=== PATIENT | female | born 1945 | race Caucasian/White ===

== ENCOUNTER 2019-10-29 08:52 | Outpatient (RCR) | payer MEDICARE, SELFPAY ==
[2019-09-03 15:25] LABS: INR 3.6
[2019-09-29 14:50] LABS: INR 3.6; Prothrombin Time 35.5 Seconds (11.1-14.7)
[2019-10-13 17:18] LABS: INR 3.6; Prothrombin Time 35.6 Seconds (11.1-14.7)
[2019-10-29 09:26] LABS: INR 3.1; Prothrombin Time 31.1 Seconds (11.1-14.7)
== END 2019-12-02 23:59 | disposition home or self-care (01) ==
LOC: ANHLAB 08:52
PROVIDERS: PCP Family Medicine; Visit Provider Specialist
DX: I48.91 Unspecified atrial fibrillation (principal); Z79.01 Long term (current) use of anticoagulants
CPT/HCPCS: 36415; 85610

== ENCOUNTER 2020-03-06 09:09 | Outpatient (CLI) | payer MEDICARE, SELFPAY ==
[2020-03-06 09:49] LABS: Hemoglobin A1C 7.5 % (<5.7)
[2020-03-06 10:55] LABS: Alanine Aminotransferase 17 U/L (4-35); Blood Urea Nitrogen 24 mg/dL (7-17); Calcium 9.2 mg/dL (8.4-10.2); Carbon Dioxide 27 mmol/L (22-30); Chloride 105 mmol/L (98-107); Cholesterol 141 mg/dL (0-200); Estimated Glomerular Filt Rate 48; Glucose 161 mg/dL (65-105); LDL Cholesterol Direct 56 mg/dL; Potassium 4.7 mmol/L (3.4-5.0); Sodium 139 mmol/L (137-145); Triglycerides 149 mg/dL (<150)
== END 2020-03-06 09:10 | disposition home or self-care (01) ==
PROVIDERS: PCP Family Medicine; Visit Provider Family Medicine
DX: E11.22 Type 2 diabetes mellitus with diabetic chronic kidney disease (principal); E78.1 Pure hyperglyceridemia
CPT/HCPCS: 36415; 80048; 82465; 83036; 83721; 84460; 84478; 85610

== ENCOUNTER 2020-03-16 13:27 | Outpatient (CLI) | payer MEDICARE, SELFPAY ==
[2020-03-18 09:54] LABS: Reference Lab Test Result Negative
== END 2020-03-16 13:28 | disposition home or self-care (01) ==
PROVIDERS: PCP Family Medicine; Visit Provider Family Medicine
DX: Z20.828 Contact with and (suspected) exposure to other viral communicable diseases (principal)
CPT/HCPCS: 36415; 86769

== ENCOUNTER 2020-04-28 11:38 | Outpatient (RCR) | payer MEDICARE, SELFPAY ==
[2020-02-02 12:55] LABS: INR 2.3; Prothrombin Time 25.1 Seconds (11.1-14.7)
[2020-02-12 14:54] LABS: INR 2.7; Prothrombin Time 28.4 Seconds (11.1-14.7)
[2020-03-06 10:04] LABS: INR 2.9; Prothrombin Time 29.6 Seconds (11.1-14.7)
[2020-03-31 14:23] LABS: INR 2.8; Prothrombin Time 29.3 Seconds (11.1-14.7)
[2020-04-28 12:13] LABS: Prothrombin Time 38.6 Seconds (11.1-14.7)
== END 2020-05-02 23:59 | disposition home or self-care (01) ==
LOC: ANHLAB 11:38
PROVIDERS: PCP Family Medicine; Visit Provider Specialist
DX: I48.91 Unspecified atrial fibrillation (principal); Z79.01 Long term (current) use of anticoagulants
CPT/HCPCS: 36415; 85610

== ENCOUNTER 2020-07-10 09:00 | Outpatient (CLI) | payer MEDICARE, SELFPAY ==
[2020-07-10 09:51] LABS: Alanine Aminotransferase 22 U/L (4-35); Anion Gap 7 mmol/L (8-16); Blood Urea Nitrogen 27 mg/dL (7-17); Calcium 9.7 mg/dL (8.4-10.2); Carbon Dioxide 29 mmol/L (22-30); Chloride 101 mmol/L (98-107); Cholesterol 149 mg/dL (0-200); Estimated Glomerular Filt Rate 44; Glucose 144 mg/dL (65-105); HDL Direct 46 mg/dL; Potassium 4.5 mmol/L (3.4-5.0); Sodium 137 mmol/L (137-145); Triglycerides 196 mg/dL (<150)
[2020-07-10 10:02] LABS: LDL Cholesterol Direct 59 mg/dL
== END 2020-07-10 09:01 | disposition home or self-care (01) ==
PROVIDERS: PCP Family Medicine; Visit Provider Family Medicine
DX: E11.65 Type 2 diabetes mellitus with hyperglycemia (principal); E78.1 Pure hyperglyceridemia
CPT/HCPCS: 36415; 80048; 80061; 83036; 84460

== ENCOUNTER 2020-07-29 15:42 | Outpatient (RCR) | payer MEDICARE, SELFPAY ==
[2020-05-06 17:19] LABS: INR 3.7
[2020-05-15 11:10] LABS: INR 3.6; Prothrombin Time 35.1 Seconds (11.1-14.7)
[2020-05-27 16:39] LABS: INR 3.2
[2020-06-23 18:25] LABS: INR 3.5; Prothrombin Time 34.2 Seconds (11.1-14.7)
[2020-07-19 17:42] LABS: INR 4.6; Prothrombin Time 42.7 Seconds (11.1-14.7)
[2020-07-29 16:38] LABS: Prothrombin Time 30.2 Seconds (11.1-14.7)
== END 2020-08-04 23:59 | disposition home or self-care (01) ==
LOC: ANHLAB 15:42
PROVIDERS: Visit Provider Specialist
DX: I48.20 Chronic atrial fibrillation, unspecified (principal); Z95.2 Presence of prosthetic heart valve
CPT/HCPCS: 36415; 85610

== ENCOUNTER 2020-10-12 14:51 | Outpatient (CLI) | payer MEDICARE, SELFPAY ==
[2020-10-12 15:24] LABS: Hematocrit 36.8 % (37.0-47.0); Hemoglobin 11.9 g/dL (12.0-15.0); Mean Corpuscular HGB Conc 32.3 g/dl (32-36); Mean Corpuscular Hemoglobin 29.1 pg (26-34); Mean Platelet Volume 9.7 fl (7.4-10.4); Platelet Count Result 230 k/mm3 (150-375); Red Blood Count 4.09 M/mm3 (4.2-5.4); Red Cell Distribution Width 14.6 % (11.5-14.5); White Blood Count 8.2 K/mm3 (4.5-10.0)
[2020-10-12 15:34] LABS: Uric Acid 8.2 mg/dL (2.5-7.5)
[2020-10-12 15:52] LABS: Erythrocyte Sedimentation Rate 22 mm/hr (0-20)
== END 2020-10-12 14:52 | disposition home or self-care (01) ==
PROVIDERS: PCP Family Medicine; Visit Provider Family Medicine
DX: M79.675 Pain in left toe(s) (principal)
CPT/HCPCS: 36415; 84550; 85027; 85652

== ENCOUNTER 2020-11-01 12:06 | Outpatient (RCR) | payer MEDICARE, SELFPAY ==
[2020-08-23 12:45] LABS: INR 2.9; Prothrombin Time 30.7 Seconds (11.1-14.7)
[2020-09-15 11:46] LABS: INR 3.5; Prothrombin Time 35.7 Seconds (11.1-14.7)
[2020-09-22 17:45] LABS: INR 3.5; Prothrombin Time 35.3 Seconds (11.1-14.7)
[2020-10-06 12:37] LABS: INR 3.1; Prothrombin Time 32.7 Seconds (11.1-14.7)
[2020-11-01 12:44] LABS: Prothrombin Time 31.4 Seconds (11.1-14.7)
== END 2020-11-21 23:59 | disposition home or self-care (01) ==
LOC: ANHLAB 12:06
PROVIDERS: PCP Family Medicine; Visit Provider Specialist
DX: I48.20 Chronic atrial fibrillation, unspecified (principal); Z95.2 Presence of prosthetic heart valve
CPT/HCPCS: 36415; 85610

== ENCOUNTER 2021-01-20 08:36 | Outpatient (CLI) | payer MEDICARE, SELFPAY ==
[2021-01-20 09:22] LABS: Hemoglobin A1C 6.9 % (<5.7)
[2021-01-20 09:37] LABS: Alanine Aminotransferase 19 U/L (4-35); Albumin Level 4.1 g/dL (3.5-5.1); Alkaline Phosphatase 104 U/L (38-126); Anion Gap 5 mmol/L (8-16); Aspartate Amino Transferase 29 U/L (14-36); Bilirubin,Total 0.8 mg/dL (0.2-1.3); Blood Urea Nitrogen 25 mg/dL (7-17); Calcium 9.1 mg/dL (8.4-10.2); Carbon Dioxide 29 mmol/L (22-30); Chloride 105 mmol/L (98-107); Cholesterol 128 mg/dL (0-200); Estimated Glomerular Filt Rate 48; Glucose 163 mg/dL (65-105); HDL Direct 36 mg/dL; Potassium 4.8 mmol/L (3.4-5.0); Sodium 139 mmol/L (137-145); Triglycerides 187 mg/dL (<150)
[2021-01-20 09:48] LABS: LDL Cholesterol Direct 49 mg/dL
== END 2021-01-20 08:37 | disposition home or self-care (01) ==
LOC: ANHLAB 08:40
PROVIDERS: PCP Family Medicine; Visit Provider Physician Assistant
DX: E78.5 Hyperlipidemia, unspecified (principal); E11.9 Type 2 diabetes mellitus without complications; I10 Essential (primary) hypertension
CPT/HCPCS: 36415; 80053; 80061; 83036; 85610

== ENCOUNTER 2021-02-16 10:27 | Outpatient (RCR) | payer MEDICARE, SELFPAY ==
[2020-11-26 12:39] LABS: INR 3.4; Prothrombin Time 34.4 Seconds (11.1-14.7)
[2020-12-20 12:30] LABS: INR 2.8; Prothrombin Time 30.3 Seconds (11.1-14.7)
[2021-01-20 09:33] LABS: INR 3.1; Prothrombin Time 32.4 Seconds (11.1-14.7)
[2021-02-16 11:20] LABS: INR 3.1; Prothrombin Time 32.7 Seconds (11.1-14.7)
== END 2021-02-24 23:59 | disposition home or self-care (01) ==
LOC: ANHLAB 10:27
PROVIDERS: PCP Family Medicine; Visit Provider Specialist
DX: I48.20 Chronic atrial fibrillation, unspecified (principal); Z95.2 Presence of prosthetic heart valve
CPT/HCPCS: 36415; 85610

== ENCOUNTER 2021-06-13 14:02 | Outpatient (RCR) | payer MEDICARE, SELFPAY ==
[2021-03-16 13:47] LABS: INR 3.6; Prothrombin Time 36.1 Seconds (11.1-14.7)
[2021-04-07 14:14] LABS: INR 3.2; Prothrombin Time 33.5 Seconds (11.1-14.7)
[2021-05-04 18:11] LABS: Prothrombin Time 37.4 Seconds (11.1-14.7)
[2021-05-12 12:14] LABS: INR 2.3; Prothrombin Time 24.7 Seconds (11.1-14.7)
[2021-05-19 13:48] LABS: INR 3.5; Prothrombin Time 33.9 Seconds (11.1-14.7)
[2021-05-26 16:28] LABS: INR 3.2; Prothrombin Time 31.9 Seconds (11.1-14.7)
[2021-06-13 14:47] LABS: INR 2.7; Prothrombin Time 27.6 Seconds (11.1-14.7)
== END 2021-06-14 23:59 | disposition home or self-care (01) ==
LOC: ANHLAB 14:02
PROVIDERS: PCP Family Medicine; Visit Provider Specialist
DX: Z51.81 Encounter for therapeutic drug level monitoring (principal); I48.20 Chronic atrial fibrillation, unspecified; Z95.2 Presence of prosthetic heart valve; Z79.01 Long term (current) use of anticoagulants
CPT/HCPCS: 36415; 85610

== ENCOUNTER 2021-09-21 13:37 | Outpatient (RCR) | payer MEDICARE, SELFPAY ==
[2021-07-11 11:20] LABS: Hematocrit 36.9 % (37.0-47.0); Hemoglobin 11.4 g/dL (12.0-15.0); Mean Corpuscular HGB Conc 30.9 g/dl (32-36); Mean Corpuscular Hemoglobin 27.8 pg (26-34); Mean Platelet Volume 9.1 fl (7.4-10.4); Platelet Count Result 201 k/mm3 (150-375); Red Cell Distribution Width 15.2 % (11.5-14.5); White Blood Count 7.9 K/mm3 (4.5-10.0)
[2021-07-11 11:32] LABS: INR 3.6; Prothrombin Time 34.5 Seconds (11.1-14.7)
[2021-07-11 11:48] LABS: Alanine Aminotransferase 19 U/L (4-35); Albumin Level 4.2 g/dL (3.5-5.1); Alkaline Phosphatase 105 U/L (38-126); Anion Gap 8 mmol/L (8-16); Aspartate Amino Transferase 28 U/L (14-36); Bilirubin,Total 0.8 mg/dL (0.2-1.3); Blood Urea Nitrogen 18 mg/dL (7-17); Calcium 9.6 mg/dL (8.4-10.2); Carbon Dioxide 28 mmol/L (22-30); Chloride 105 mmol/L (98-107); Cholesterol 116 mg/dL (0-200); Estimated Glomerular Filt Rate 48; Glucose 169 mg/dL (65-110); HDL Direct 40 mg/dL; Potassium 4.5 mmol/L (3.4-5.0); Sodium 141 mmol/L (137-145); Triglycerides 168 mg/dL (<150)
[2021-07-11 11:59] LABS: LDL Cholesterol Direct 41 mg/dL
[2021-07-11 12:25] LABS: MALB Creatinine Ratio 109.7 mg/g (0-30); Microalbumin Urine Random 144.8 mg/L (0-16.7)
[2021-07-11 12:29] LABS: Iron 53 ug/dL (37-170)
[2021-07-11 12:31] LABS: Hemoglobin A1C 7.3 % (<5.7)
[2021-07-11 12:44] LABS: Percent Iron Saturation 14 % (20-50)
[2021-07-25 12:10] LABS: INR 4.6; Prothrombin Time 42.2 Seconds (11.1-14.7)
[2021-07-29 11:22] LABS: Prothrombin Time 30.4 Seconds (11.1-14.7)
[2021-08-04 12:25] LABS: INR 3.8
[2021-08-11 12:48] LABS: INR 3.1; Prothrombin Time 30.9 Seconds (11.1-14.7)
[2021-08-25 12:43] LABS: INR 2.6; Prothrombin Time 27.2 Seconds (11.1-14.7)
[2021-09-08 11:19] LABS: INR 2.7; Prothrombin Time 27.9 Seconds (11.1-14.7)
[2021-09-21 15:08] LABS: INR 3.3; Prothrombin Time 32.2 Seconds (11.1-14.7)
== END 2021-10-09 23:59 | disposition home or self-care (01) ==
LOC: ANHLAB 13:37
PROVIDERS: PCP Family Medicine; Visit Provider Specialist
DX: Z51.81 Encounter for therapeutic drug level monitoring (principal); I48.20 Chronic atrial fibrillation, unspecified; E11.9 Type 2 diabetes mellitus without complications; E78.2 Mixed hyperlipidemia; D64.9 Anemia, unspecified; Z79.01 Long term (current) use of anticoagulants
CPT/HCPCS: 36415; 80053; 80061; 82043; 82728; 83036; 83540; 83550; 85027; 85610

== ENCOUNTER 2021-12-07 10:14 | Outpatient (CLI) | payer MEDICARE, SELFPAY ==
[2021-12-07 11:06] LABS: Hemoglobin 11.6 g/dL (12.0-15.0); Mean Corpuscular HGB Conc 31.4 g/dl (32-36); Mean Corpuscular Hemoglobin 27.6 pg (26-34); Mean Corpuscular Volume 88.1 fl (80-100); Mean Platelet Volume 9.5 fl (7.4-10.4); Platelet Count Result 242 k/mm3 (150-375); Red Cell Distribution Width 15.3 % (11.5-14.5)
[2021-12-07 11:53] LABS: Hemoglobin A1C 7.4 % (<5.7)
[2021-12-07 12:06] LABS: Alanine Aminotransferase 19 U/L (4-35); Albumin Level 4.1 g/dL (3.5-5.1); Alkaline Phosphatase 125 U/L (38-126); Anion Gap 12 mmol/L (8-16); Aspartate Amino Transferase 33 U/L (14-36); Bilirubin,Total 0.8 mg/dL (0.2-1.3); Blood Urea Nitrogen 23 mg/dL (7-17); Calcium 9.4 mg/dL (8.4-10.2); Carbon Dioxide 25 mmol/L (22-30); Chloride 102 mmol/L (98-107); Estimated Glomerular Filt Rate 54; Glucose 165 mg/dL (65-110); Potassium 4.5 mmol/L (3.4-5.0); Sodium 139 mmol/L (137-145); Uric Acid 7.9 mg/dL (2.5-7.5)
[2021-12-07 13:13] LABS: Folic Acid 7.8 ng/mL (2.76->20)
== END 2021-12-07 10:15 | disposition home or self-care (01) ==
PROVIDERS: PCP Family Medicine; Visit Provider Family Medicine
DX: D64.9 Anemia, unspecified (principal); M10.9 Gout, unspecified; E11.9 Type 2 diabetes mellitus without complications; I10 Essential (primary) hypertension
CPT/HCPCS: 36415; 80053; 82607; 82746; 83036; 84550; 85027; 85610

== ENCOUNTER 2022-01-02 16:43 | Outpatient (RCR) | payer MEDICARE, SELFPAY ==
[2021-10-12 16:19] LABS: INR 2.5; Prothrombin Time 26.4 Seconds (11.1-14.7)
[2021-10-26 14:39] LABS: INR 2.8; Prothrombin Time 28.7 Seconds (11.1-14.7)
[2021-11-22 11:55] LABS: INR 2.5
[2021-12-07 11:14] LABS: INR 2.9; Prothrombin Time 29.5 Seconds (11.1-14.7)
[2022-01-02 17:06] LABS: Prothrombin Time 29.8 Seconds (11.1-14.7)
== END 2022-01-10 23:59 | disposition home or self-care (01) ==
LOC: ANHLAB 16:43
PROVIDERS: PCP Family Medicine; Visit Provider Specialist
DX: Z51.81 Encounter for therapeutic drug level monitoring (principal); I48.20 Chronic atrial fibrillation, unspecified; Z79.01 Long term (current) use of anticoagulants
CPT/HCPCS: 36415; 85610

== ENCOUNTER 2022-03-22 09:48 | Outpatient (RCR) | payer MEDICARE, SELFPAY ==
[2022-03-22] MEDS: diphenhydrAMINE HCl CAP 25 MG CAPSULE PO (10:00)
[2022-03-22] MEDS: FAMOTIDINE 20 MG TABLET PO (10:01)
[2022-03-22] MEDS: ACETAMINOPHEN 325 MG TABLET 650 MG PO (10:01)
[2022-03-22 10:03] VITALS: BP 121/73; PULSE 100; TEMP 36.7; O2SAT 96
[2022-03-22] MEDS: BEBTELOVIMAB 175 MG/2 ML VIAL IV PUSH (10:25)
[2022-03-22 10:53] VITALS: BP 123/71; PULSE 105; O2SAT 97
== END 2022-03-22 16:00 ==
LOC: AMCINF 09:48
PROVIDERS: Referring Provider Family Medicine; Visit Provider Internal Medicine Hematology & Oncology
DX: U07.1 COVID-19 (principal)
CPT/HCPCS: A9270; M0222; Q0222

== ENCOUNTER 2022-04-06 13:14 | Outpatient (RCR) | payer MEDICARE, SELFPAY ==
[2022-01-26 12:20] LABS: INR 2.8; Prothrombin Time 28.3 Seconds (11.1-14.7)
[2022-02-23 14:10] LABS: INR 3.3; Prothrombin Time 32.2 Seconds (11.1-14.7)
[2022-03-27 17:41] LABS: INR 4.2
[2022-04-06 13:49] LABS: INR 2.9; Prothrombin Time 29.6 Seconds (11.1-14.7)
== END 2022-04-26 23:59 | disposition home or self-care (01) ==
LOC: ANHLAB 13:14
PROVIDERS: PCP Family Medicine; Visit Provider Specialist
DX: I48.20 Chronic atrial fibrillation, unspecified (principal)
CPT/HCPCS: 36415; 85610

== ENCOUNTER 2022-06-09 09:52 | Outpatient (CLI) | payer MEDICARE, SELFPAY ==
[2022-06-09 10:27] LABS: Hematocrit 36.4 % (37.0-47.0); Hemoglobin 11.2 g/dL (12.0-15.0); Mean Corpuscular HGB Conc 30.8 g/dl (32-36); Mean Corpuscular Hemoglobin 27.3 pg (26-34); Mean Corpuscular Volume 88.8 fl (80-100); Mean Platelet Volume 9.7 fl (7.4-10.4); Platelet Count Result 210 k/mm3 (150-375); Red Cell Distribution Width 17.1 % (11.5-14.5); White Blood Count 8.4 K/mm3 (4.5-10.0)
[2022-06-09 10:42] LABS: Hemoglobin A1C 7.2 % (<5.7)
[2022-06-09 10:52] LABS: Alanine Aminotransferase 21 U/L (6-35); Albumin Level 4.3 g/dL (3.5-5.1); Alkaline Phosphatase 123 U/L (38-126); Anion Gap 12 mmol/L (8-16); Aspartate Amino Transferase 27 U/L (14-36); Bilirubin,Total 1.1 mg/dL (0.2-1.3); Blood Urea Nitrogen 22 mg/dL (7-17); Calcium 9.5 mg/dL (8.4-10.2); Carbon Dioxide 23 mmol/L (22-30); Chloride 105 mmol/L (98-107); Cholesterol 113 mg/dL (0-200); Estimated Glomerular Filt Rate 48; Glucose 147 mg/dL (65-110); HDL Direct 35 mg/dL; Potassium 4.6 mmol/L (3.4-5.0); Sodium 140 mmol/L (137-145); Triglycerides 139 mg/dL (<150)
[2022-06-09 11:03] LABS: LDL Cholesterol Direct 41 mg/dL
== END 2022-06-09 09:53 | disposition home or self-care (01) ==
LOC: ANHLAB 09:54
PROVIDERS: PCP Family Medicine; Visit Provider Physician Assistant
DX: Z13.1 Encounter for screening for diabetes mellitus (principal); Z13.220 Encounter for screening for lipoid disorders; I10 Essential (primary) hypertension; E78.5 Hyperlipidemia, unspecified; E11.69 Type 2 diabetes mellitus with other specified complication; D64.9 Anemia, unspecified
CPT/HCPCS: 36415; 80053; 80061; 83036; 85027

== ENCOUNTER 2022-07-25 12:44 | Outpatient (RCR) | payer MEDICARE, SELFPAY ==
[2022-05-02 13:05] LABS: INR 2.3; Prothrombin Time 24.7 Seconds (11.1-14.7)
[2022-05-09 15:47] LABS: INR 2.8; Prothrombin Time 28.4 Seconds (11.1-14.7)
[2022-05-25 15:02] LABS: INR 2.7; Prothrombin Time 27.5 Seconds (11.1-14.7)
[2022-06-21 14:08] LABS: INR 2.8; Prothrombin Time 28.2 Seconds (11.1-14.7)
[2022-07-18 14:19] LABS: INR 3.9; Prothrombin Time 36.7 Seconds (11.1-14.7)
[2022-07-25 13:20] LABS: INR 3.3; Prothrombin Time 32.4 Seconds (11.1-14.7)
== END 2022-07-31 23:59 | disposition home or self-care (01) ==
LOC: ANHLAB 12:44
PROVIDERS: Visit Provider Specialist
DX: I48.20 Chronic atrial fibrillation, unspecified (principal)
CPT/HCPCS: 36415; 85610

== ENCOUNTER 2022-11-16 10:19 | Outpatient (RCR) | payer MEDICARE, SELFPAY ==
[2022-08-21 14:27] LABS: INR 2.7; Prothrombin Time 27.9 Seconds (11.1-14.7)
[2022-09-11 13:53] LABS: INR 2.3; Prothrombin Time 24.5 Seconds (11.1-14.7)
[2022-09-19 14:07] LABS: INR 2.5; Prothrombin Time 26.1 Seconds (11.1-14.7)
[2022-10-04 12:55] LABS: INR 2.9
[2022-10-30 13:05] LABS: INR 3.2; Prothrombin Time 32.1 Seconds (11.1-14.7)
[2022-11-03 12:19] LABS: INR 3.2; Prothrombin Time 32.1 Seconds (11.1-14.7)
[2022-11-10 10:22] LABS: INR 2.3; Prothrombin Time 24.5 Seconds (11.1-14.7)
[2022-11-16 11:08] LABS: INR 2.7; Prothrombin Time 27.9 Seconds (11.1-14.7)
== END 2022-11-19 23:59 | disposition home or self-care (01) ==
LOC: ANHLAB 10:19
PROVIDERS: PCP Family Medicine; Visit Provider Specialist
DX: I48.20 Chronic atrial fibrillation, unspecified (principal)
CPT/HCPCS: 36415; 85610

== ENCOUNTER 2022-12-05 08:21 | Outpatient (CLI) | payer MEDICARE, SELFPAY ==
[2022-12-05 09:50] LABS: Basophils Absolute Auto 0.1 K/mm3 (0.0-0.1); Basophils Percent Auto 0.9 % (0.2-1.2); Eosinophils Absolute Auto 0.1 K/mm3 (0-0.3); Eosinophils Percent Auto 0.7 % (0-4.4); Hematocrit 38.4 % (37.0-47.0); Hemoglobin 12.6 g/dL (12.0-15.0); Immature Granulocyte Absolute 0.07 K/mm3 (0.00-0.031); Immature Granulocyte Percent A 0.8 % (0-0.5); Lymphocytes Absolute Auto 0.77 K/mm3 (0.9-3.2); Lymphocytes Percent Auto 8.6 % (18.3-44.2); Mean Corpuscular HGB Conc 32.8 g/dl (32-36); Mean Corpuscular Hemoglobin 28.6 pg (26-34); Mean Corpuscular Volume 87.1 fl (80-100); Mean Platelet Volume 9.7 fl (7.4-10.4); Monocytes Absolute Auto 0.8 K/mm3 (0.1-0.6); Monocytes Percent Auto 8.9 % (2.6-8.5); Neutrophils Absolute Auto 7.2 K/mm3 (1.3-6.7); Neutrophils Percent Auto 80.1 % (45.5-73.1); Platelet Count Result 188 k/mm3 (150-375); Red Blood Count 4.41 M/mm3 (4.2-5.4); Red Cell Distribution Width 15.8 % (11.5-14.5); Reticulocyte Hemoglobin Conten 32.7 pg (28.2-35.7); Reticulocyte Percent 2.25 % (0.7-4.3)
[2022-12-05 10:00] LABS: Alanine Aminotransferase 19 U/L (6-35); Albumin Level 4.5 g/dL (3.5-5.1); Alkaline Phosphatase 149 U/L (38-126); Anion Gap 7 mmol/L (8-16); Aspartate Amino Transferase 28 U/L (14-36); Bilirubin,Total 1.4 mg/dL (0.2-1.3); Blood Urea Nitrogen 23 mg/dL (7-17); Calcium 9.3 mg/dL (8.4-10.2); Carbon Dioxide 27 mmol/L (22-30); Chloride 99 mmol/L (98-107); Cholesterol 139 mg/dL (0-200); Estimated Glomerular Filt Rate 36; Glucose 198 mg/dL (65-110); HDL Direct 38 mg/dL; Potassium 4.2 mmol/L (3.4-5.0); Sodium 133 mmol/L (137-145); Triglycerides 150 mg/dL (<150)
[2022-12-05 10:11] LABS: LDL Cholesterol Direct 50 mg/dL
[2022-12-05 10:12] LABS: Iron 38 ug/dL (37-170)
[2022-12-05 10:14] LABS: Hemoglobin A1C 7.9 % (<5.7)
[2022-12-05 10:24] LABS: Percent Iron Saturation 9 % (20-50)
[2022-12-05 10:28] LABS: Creatinine Urine 198.5 mg/dL
[2022-12-05 10:33] LABS: MALB Creatinine Ratio 56.5 mg/g (0-30); Microalbumin Urine Random 112.1 mg/L (0-16.7)
== END 2022-12-05 08:22 | disposition home or self-care (01) ==
PROVIDERS: PCP Family Medicine; Visit Provider Family Medicine
DX: E11.9 Type 2 diabetes mellitus without complications (principal); D64.9 Anemia, unspecified; I48.0 Paroxysmal atrial fibrillation; R53.83 Other fatigue; E78.2 Mixed hyperlipidemia
CPT/HCPCS: 36415; 80053; 80061; 82043; 82728; 83036; 83540; 83550; 84443; 85025; 85046

== ENCOUNTER 2023-01-11 12:59 | Outpatient (CLI) | payer MEDICARE, SELFPAY ==
[2023-01-11 14:01] LABS: Sodium Urine Random 125 meq/L
[2023-01-11 15:38] LABS: Anion Gap 7 mmol/L (8-16); Blood Urea Nitrogen 28 mg/dL (7-17); Calcium 9.7 mg/dL (8.4-10.2); Carbon Dioxide 30 mmol/L (22-30); Chloride 105 mmol/L (98-107); Estimated Glomerular Filt Rate 44; Glucose 87 mg/dL (65-110); Potassium 4.4 mmol/L (3.4-5.0); Sodium 142 mmol/L (137-145)
[2023-01-14 16:18] LABS: Osmolality, Urine 410 mOsm/kg (50-1200)
== END 2023-01-11 13:00 | disposition home or self-care (01) ==
PROVIDERS: PCP Family Medicine; Visit Provider Family Medicine
DX: E87.1 Hypo-osmolality and hyponatremia (principal)
CPT/HCPCS: 36415; 80048; 83930; 83935; 84300; 85610

== ENCOUNTER 2023-02-27 13:31 | Outpatient (RCR) | payer MEDICARE, SELFPAY ==
[2022-12-11 12:49] LABS: Prothrombin Time 22.3 Seconds (11.1-14.7)
[2022-12-18 15:14] LABS: INR 2.2; Prothrombin Time 23.8 Seconds (11.1-14.7)
[2023-01-01 14:01] LABS: INR 2.3; Prothrombin Time 24.2 Seconds (11.1-14.7)
[2023-01-11 15:46] LABS: INR 2.4
[2023-01-25 14:14] LABS: Prothrombin Time 22.1 Seconds (11.1-14.7)
[2023-02-01 08:04] LABS: INR 2.7; Prothrombin Time 27.4 Seconds (11.1-14.7)
[2023-02-27 15:13] LABS: INR 3.4; Prothrombin Time 37.1 Seconds (11.1-14.7)
== END 2023-03-11 23:59 | disposition home or self-care (01) ==
LOC: ANHLAB 13:31
PROVIDERS: PCP Family Medicine; Visit Provider Specialist
DX: I48.20 Chronic atrial fibrillation, unspecified (principal)
CPT/HCPCS: 36415; 85610

== ENCOUNTER 2023-04-17 08:58 | Outpatient (CLI) | payer MEDICARE, SELFPAY ==
[2023-04-17 09:13] LABS: Hematocrit 39.7 % (37.0-47.0); Hemoglobin 12.5 g/dL (12.0-15.0); Mean Corpuscular HGB Conc 31.5 g/dl (32-36); Mean Corpuscular Hemoglobin 28.3 pg (26-34); Mean Platelet Volume 9.1 fl (7.4-10.4); Platelet Count Result 182 k/mm3 (150-375); Red Blood Count 4.41 M/mm3 (4.2-5.4); Red Cell Distribution Width 15.7 % (11.5-14.5); White Blood Count 7.5 K/mm3 (4.5-10.0)
[2023-04-17 09:23] LABS: Alanine Aminotransferase 27 U/L (6-35); Albumin Level 4.3 g/dL (3.5-5.1); Alkaline Phosphatase 140 U/L (38-126); Anion Gap 3 mmol/L (8-16); Aspartate Amino Transferase 31 U/L (14-36); Blood Urea Nitrogen 32 mg/dL (7-17); Calcium 9.3 mg/dL (8.4-10.2); Carbon Dioxide 29 mmol/L (22-30); Chloride 107 mmol/L (98-107); Estimated Glomerular Filt Rate 48; Glucose 123 mg/dL (65-110); Potassium 4.8 mmol/L (3.4-5.0); Sodium 139 mmol/L (137-145)
[2023-04-17 09:27] LABS: Hemoglobin A1C 6.6 % (<5.7)
== END 2023-04-17 08:59 | disposition home or self-care (01) ==
PROVIDERS: PCP Family Medicine; Visit Provider Physician Assistant
DX: D64.9 Anemia, unspecified (principal); Z13.1 Encounter for screening for diabetes mellitus; E11.9 Type 2 diabetes mellitus without complications
CPT/HCPCS: 36415; 80053; 83036; 85027

== ENCOUNTER 2023-05-08 13:17 | Outpatient (CLI) | payer MEDICARE, SELFPAY ==
--- NOTE | ~2023-05-08 | US_ITS ---
US arterial ankle brachial ind INDICATION: Peripheral vascular disease TECHNIQUE: Segmental pressures and plethysmographic and Doppler waveforms of the brachial and lower e xtremity arteries were obtained. COMPARISON: None. FINDINGS: Right and left brachial artery pressures of 131 mm Hg and 137 mm Hg, respectively, are concordant (no rmal difference <= 30 mmHg). The right ankle-brachial index (JOB) is 1.31 (normal >= 0.9-1.0). The right great toe-brachial index (TBI) is 0.26 (normal >= 0.60). The left JOB is 1.14. The left TBI is 0.63. IMPRESSION: 1. Normal bilateral ankle-brachial indices. 2: Diminished right toe brachial index measuring 0.26, consistent with peripheral arterial disease. Reviewed, dictated and finalized at location A. IMPRESSION: 1. Normal bilateral ankle-brachial indices. 2: Diminished right toe brachial index measuring 0.26, consistent with periphe ral arterial disease.
[2023-05-08 16:20] LABS: Iron 85 ug/dL (37-170)
[2023-05-08 16:44] LABS: Percent Iron Saturation 20 % (20-50)
== END 2023-05-08 13:18 | disposition home or self-care (01) ==
PROVIDERS: PCP Family Medicine; Visit Provider Family Medicine
DX: I73.9 Peripheral vascular disease, unspecified (principal); E61.1 Iron deficiency
CPT/HCPCS: 36415; 82728; 83540; 83550; 85610; 93922

== ENCOUNTER 2023-06-07 13:29 | Outpatient (RCR) | payer MEDICARE, SELFPAY ==
[2023-03-16 11:07] LABS: INR 2.7; Prothrombin Time 30.5 Seconds (11.1-14.7)
[2023-04-12 10:22] LABS: INR 2.7; Prothrombin Time 30.6 Seconds (11.1-14.7)
[2023-05-08 14:29] LABS: INR 3.8; Prothrombin Time 40.2 Seconds (11.1-14.7)
[2023-05-17 14:07] LABS: INR 2.1; Prothrombin Time 25.3 Seconds (11.1-14.7)
[2023-05-25 11:17] LABS: INR 2.7; Prothrombin Time 30.2 Seconds (11.1-14.7)
[2023-06-07 14:07] LABS: INR 3.2; Prothrombin Time 35.3 Seconds (11.1-14.7)
== END 2023-06-14 23:59 | disposition home or self-care (01) ==
LOC: ANHLAB 13:29
PROVIDERS: PCP Family Medicine; Visit Provider Specialist
DX: I48.20 Chronic atrial fibrillation, unspecified (principal)
CPT/HCPCS: 36415; 85610

== ENCOUNTER 2023-09-10 13:10 | Outpatient (RCR) | payer MEDICARE, SELFPAY ==
[2023-06-29 10:30] LABS: Prothrombin Time 33.4 Seconds (11.1-14.7)
[2023-07-24 15:01] LABS: Prothrombin Time 33.8 Seconds (11.1-14.7)
[2023-08-21 14:16] LABS: INR 2.6; Prothrombin Time 30.1 Seconds (11.1-14.7)
[2023-09-10 13:55] LABS: INR 2.7; Prothrombin Time 30.3 Seconds (11.1-14.7)
== END 2023-09-27 23:59 | disposition home or self-care (01) ==
LOC: ANHLAB 13:10
PROVIDERS: PCP Family Medicine; Visit Provider Specialist
DX: I48.20 Chronic atrial fibrillation, unspecified (principal); Z95.2 Presence of prosthetic heart valve
CPT/HCPCS: 36415; 85610

== ENCOUNTER 2023-11-26 09:28 | Outpatient (CLI) | payer MEDICARE, SELFPAY ==
[2023-11-26 10:06] LABS: Phosphorus 3.7 mg/dL (2.5-4.5)
[2023-11-26 10:16] LABS: Parathyroid Intact 99.9 pg/mL (7.5-53.5)
[2023-11-26 11:09] LABS: Hepatitis C Virus Antibody Negative (Negative)
[2023-11-26 11:19] LABS: Vitamin D 25 Hydroxy 37.3 ng/mL
[2023-11-28 15:01] LABS: Anion Gap 4 mmol/L (8-16); Blood Urea Nitrogen 28 mg/dL (7-17); Calcium 9.4 mg/dL (8.4-10.2); Carbon Dioxide 26 mmol/L (22-30); Chloride 109 mmol/L (98-107); Estimated Glomerular Filt Rate 54; Glucose 139 mg/dL (65-110); Sodium 139 mmol/L (137-145)
[2023-11-29 16:01] LABS: Ionized Calcium 4.8 mg/dL (4.7-5.5)
== END 2023-11-26 09:29 | disposition home or self-care (01) ==
PROVIDERS: PCP Family Medicine; Visit Provider Family Medicine
DX: E55.9 Vitamin D deficiency, unspecified (principal); N18.30 Chronic kidney disease, stage 3 unspecified; Z11.59 Encounter for screening for other viral diseases
CPT/HCPCS: 36415; 80048; 82306; 82330; 83970; 84100; 85610; 86803

== ENCOUNTER 2023-12-07 08:37 | Outpatient (CLI) | payer MEDICARE, SELFPAY ==
[2023-12-07 09:06] LABS: Anion Gap 6 mmol/L (8-16); Blood Urea Nitrogen 32 mg/dL (7-17); Calcium 9.7 mg/dL (8.4-10.2); Carbon Dioxide 26 mmol/L (22-30); Chloride 105 mmol/L (98-107); Estimated Glomerular Filt Rate 43; Glucose 163 mg/dL (65-110); Potassium 4.6 mmol/L (3.4-5.0); Sodium 137 mmol/L (137-145)
[2023-12-07 09:12] LABS: Hemoglobin A1C 7.6 % (<5.7)
== END 2023-12-07 08:38 | disposition home or self-care (01) ==
PROVIDERS: PCP Family Medicine; Visit Provider Family Medicine
DX: E11.22 Type 2 diabetes mellitus with diabetic chronic kidney disease (principal); N18.30 Chronic kidney disease, stage 3 unspecified
CPT/HCPCS: 36415; 80048; 83036; 85610

== ENCOUNTER 2024-01-14 14:15 | Outpatient (RCR) | payer MEDICARE, SELFPAY ==
[2023-10-17 13:33] LABS: INR 3.7
[2023-11-08 12:38] LABS: Prothrombin Time 42.5 Seconds (11.1-14.7)
[2023-11-15 13:40] LABS: INR 2.9; Prothrombin Time 32.2 Seconds (11.1-14.7)
[2023-11-26 10:05] LABS: INR 2.7; Prothrombin Time 30.9 Seconds (11.1-14.7)
[2023-12-07 09:07] LABS: INR 2.3; Prothrombin Time 26.6 Seconds (11.1-14.7)
[2023-12-17 13:36] LABS: INR 4.2
[2023-12-24 13:49] LABS: INR 2.9; Prothrombin Time 33.1 Seconds (11.1-14.7)
[2024-01-14 14:49] LABS: INR 2.8; Prothrombin Time 31.3 Seconds (11.1-14.7)
== END 2024-01-15 23:59 | disposition home or self-care (01) ==
LOC: ANHLAB 14:15
PROVIDERS: PCP Family Medicine; Visit Provider Specialist
DX: I48.20 Chronic atrial fibrillation, unspecified (principal); Z95.2 Presence of prosthetic heart valve
CPT/HCPCS: 36415; 85610

== ENCOUNTER 2024-04-28 13:40 | Outpatient (RCR) | payer MEDICARE, SELFPAY ==
[2024-02-11 14:29] LABS: INR 3.2; Prothrombin Time 35.1 Seconds (11.1-14.7)
[2024-03-10 13:49] LABS: INR 2.2; Prothrombin Time 25.8 Seconds (11.1-14.7)
[2024-03-18 12:36] LABS: INR 3.3; Prothrombin Time 36.3 Seconds (11.1-14.7)
[2024-04-14 13:28] LABS: INR 3.8; Prothrombin Time 37.3 Seconds (11.1-14.7)
[2024-04-28 14:19] LABS: INR 3.5; Prothrombin Time 35.4 Seconds (11.1-14.7)
== END 2024-05-11 23:59 | disposition home or self-care (01) ==
LOC: ANHLAB 13:40
PROVIDERS: PCP Family Medicine; Visit Provider Specialist
DX: I48.20 Chronic atrial fibrillation, unspecified (principal); Z95.2 Presence of prosthetic heart valve
CPT/HCPCS: 36415; 85610

== ENCOUNTER 2024-05-23 10:23 | Outpatient (CLI) | payer MEDICARE, SELFPAY ==
[2024-05-23 11:44] LABS: Alanine Aminotransferase 19 U/L (6-35); Albumin Level 4.2 g/dL (3.5-5.1); Alkaline Phosphatase 151 U/L (38-126); Anion Gap 10 mmol/L (4-12); Aspartate Amino Transferase 28 U/L (14-36); Bilirubin,Total 0.9 mg/dL (0.2-1.3); Blood Urea Nitrogen 25 mg/dL (7-17); Calcium 9.3 mg/dL (8.4-10.2); Carbon Dioxide 25 mmol/L (22-30); Chloride 104 mmol/L (98-107); Estimated Glomerular Filt Rate 36; Glucose 133 mg/dL (65-110); Potassium 4.4 mmol/L (3.4-5.0); Sodium 139 mmol/L (137-145)
[2024-05-23 12:05] LABS: Hemoglobin A1C 7.5 % (<5.7)
== END 2024-05-23 10:24 | disposition home or self-care (01) ==
PROVIDERS: PCP Family Medicine; Visit Provider Physician Assistant
DX: E11.9 Type 2 diabetes mellitus without complications (principal); Z13.1 Encounter for screening for diabetes mellitus
CPT/HCPCS: 36415; 80053; 83036

== ENCOUNTER 2024-06-12 14:43 | Outpatient (RCR) | payer MEDICARE, SELFPAY ==
[2024-05-23 11:32] LABS: INR 3.8; Prothrombin Time 37.9 Seconds (11.1-14.7)
[2024-06-05 14:49] LABS: INR 4.2; Prothrombin Time 41.6 Seconds (11.1-14.7)
[2024-06-12 15:11] LABS: INR 3.5; Prothrombin Time 35.4 Seconds (11.1-14.7)
== END 2024-06-30 14:41 | disposition home or self-care (01) ==
LOC: ANHLAB 14:43
PROVIDERS: PCP Family Medicine; Visit Provider Specialist
DX: I48.20 Chronic atrial fibrillation, unspecified (principal); Z95.2 Presence of prosthetic heart valve
CPT/HCPCS: 36415; 85610

== ENCOUNTER 2024-07-29 11:33 | Outpatient (CLI) | payer MEDICARE, SELFPAY ==
[2024-07-29 12:21] LABS: Albumin Level 4.3 g/dL (3.5-5.1); Anion Gap 11 mmol/L (4-12); Blood Urea Nitrogen 27 mg/dL (7-17); Calcium 9.2 mg/dL (8.4-10.2); Carbon Dioxide 23 mmol/L (22-30); Chloride 103 mmol/L (98-107); Estimated Glomerular Filt Rate 43; Glucose 254 mg/dL (65-110); Phosphorus 3.8 mg/dL (2.5-4.5); Potassium 4.6 mmol/L (3.4-5.0); Sodium 137 mmol/L (137-145)
[2024-07-29 12:24] LABS: Total Volume 24 Hour Urine 2350 ml
[2024-07-29 12:29] LABS: Creatinine 24 Hour Urine 0.8 gm/24 (0.8-1.8); Creatinine Urine 35.3 mg/dL
[2024-07-30 12:38] LABS: Ionized Calcium 4.9 mg/dL (4.7-5.5)
[2024-08-05 12:29] LABS: Total Volume 2500 mL
== END 2024-07-29 11:34 | disposition home or self-care (01) ==
PROVIDERS: PCP Family Medicine; Visit Provider Internal Medicine Endocrinology, Diabetes & Metabolism
DX: N18.30 Chronic kidney disease, stage 3 unspecified (principal); E21.3 Hyperparathyroidism, unspecified; R79.89 Other specified abnormal findings of blood chemistry
CPT/HCPCS: 36415; 80069; 81050; 82330; 82340; 82570; 83970

== ENCOUNTER 2024-08-07 13:21 | Outpatient (RCR) | payer MEDICARE, SELFPAY ==
[2024-06-30 15:45] LABS: INR 2.7; Prothrombin Time 29.7 Seconds (11.1-14.7)
[2024-07-08 11:58] LABS: Prothrombin Time 31.3 Seconds (11.1-14.7)
[2024-08-07 14:11] LABS: INR 4.3; Prothrombin Time 41.6 Seconds (11.1-14.7)
== END 2024-08-14 10:04 | disposition home or self-care (01) ==
LOC: ANHLAB 13:21
PROVIDERS: PCP Family Medicine; Visit Provider Specialist
DX: Z95.2 Presence of prosthetic heart valve (principal)
CPT/HCPCS: 36415; 85610

== ENCOUNTER 2024-08-07 13:26 | Outpatient (CLI) | payer MEDICARE, SELFPAY ==
[2024-08-07 14:00] LABS: Hematocrit 39.5 % (37.0-47.0); Hemoglobin 11.9 g/dL (12.0-15.0); Mean Corpuscular HGB Conc 30.1 g/dl (32-36); Mean Corpuscular Hemoglobin 25.3 pg (26-34); Mean Corpuscular Volume 83.9 fl (80-100); Mean Platelet Volume 9.1 fl (7.4-10.4); Platelet Count Result 231 k/mm3 (150-375); Red Blood Count 4.71 M/mm3 (4.2-5.4); Red Cell Distribution Width 17.4 % (11.5-14.5); White Blood Count 7.8 K/mm3 (4.5-10.0)
[2024-08-07 14:03] LABS: Add Urine Microscopic? NO; Appearance Urine Clear (Clear); Bilirubin Urine Negative (Negative); Blood Urine Negative (Negative); Color Urine Yellow (Yellow); Glucose Urine UA 3+ mg/dL (Negative); Ketones Urine Negative (Negative); Leukocyte Esterase Ur Negative LEU/UL (Negative); Nitrate Urine Negative (Negative); Protein Urine Negative (Negative); Specific Grav Ur 1.016 (1.001-1.035); Urobilinogen Urine 0.2 mg/dL (<2.0)
[2024-08-07 14:12] LABS: Albumin Level 4.3 g/dL (3.5-5.1); Anion Gap 9 mmol/L (4-12); Blood Urea Nitrogen 31 mg/dL (7-17); Calcium 9.3 mg/dL (8.4-10.2); Carbon Dioxide 25 mmol/L (22-30); Chloride 102 mmol/L (98-107); Creatine Kinase 43 U/L (30-135); Estimated Glomerular Filt Rate 40; Glucose 251 mg/dL (65-110); Potassium 4.4 mmol/L (3.4-5.0); Sodium 136 mmol/L (137-145)
[2024-08-07 14:19] LABS: Complement C3 138 mg/dL (88-165)
[2024-08-07 14:34] LABS: Erythrocyte Sedimentation Rate 21 mm/hr (0-20)
[2024-08-07 14:53] LABS: Creatinine Urine 48.6 mg/dL; Total Protein Urine Random 9 mg/dL; Ur Ttl Prot Creatinine Ratio 0.19 mg/mg (0-0.20)
[2024-08-07 15:04] LABS: Parathyroid Intact 109.6 pg/mL (14.5-75.2)
[2024-08-08 15:07] LABS: Complement Total CH50 >60 U/mL (31-60)
[2024-08-12 10:48] LABS: ANA Pattern Nuclear, Homogeneous
[2024-08-12 11:08] LABS: Kappa\\Lambda Light Chains 1.35 (0.26-1.65); Lambda Light Chain 27.7 mg/L (5.7-26.3)
[2024-08-12 20:50] LABS: Immunofixation, Serum Normal pattern.
== END 2024-08-07 13:27 | disposition home or self-care (01) ==
PROVIDERS: PCP Family Medicine; Visit Provider Internal Medicine Nephrology
DX: N18.32 Chronic kidney disease, stage 3b (principal); I50.9 Heart failure, unspecified
CPT/HCPCS: 36415; 80069; 81003; 82550; 82570; 83883; 83970; 84156; 85027; 85652; 86038; 86039; 86160; 86162; 86334

== ENCOUNTER 2024-08-20 13:11 | Outpatient (CLI) | payer MEDICARE, SELFPAY ==
--- NOTE | ~2024-08-20 | US_ITS ---
EXAMINATION: US renal BI DATE: 08/20/2024 13:36 INDICATION: N18.32 - Chronic kidney disease, stage 3b TECHNIQUE: Multiple grayscale and Doppler ultrasound images of the kidneys were obtained. COMPARISON: None. FINDINGS: The right kidney measures 9.2 x 4.7 x 4.8 cm. The left kidney measures 9.3 x 4.1 x 4.1 cm. The kidney s demonstrate normal parenchymal echogenicity. Bilateral simple renal cysts. There is no hydronephros is. The bladder is normal. IMPRESSION: Unremarkable renal sonogram findings. Reviewed, dictated and finalized at location K.
== END 2024-08-20 13:12 | disposition home or self-care (01) ==
LOC: ANHIMG 13:12
PROVIDERS: PCP Family Medicine; Visit Provider Internal Medicine Nephrology
DX: N18.32 Chronic kidney disease, stage 3b (principal)
CPT/HCPCS: 76775

== ENCOUNTER 2024-08-21 11:55 | Outpatient (CLI) | payer MEDICARE, SELFPAY ==
[2024-08-21 12:39] LABS: Rheumatoid Factor < 12.0 IU/ML (<12)
[2024-08-21 13:11] LABS: Erythrocyte Sedimentation Rate 16 mm/hr (0-20)
[2024-08-23 08:38] LABS: SM Antibody <1.0 NEG AI (<1.0 NEG); SM/RNP Antibody <1.0 NEG AI (<1.0 NEG); SS-A <1.0 NEG AI (<1.0 NEG); SS-B <1.0 NEG AI (<1.0 NEG)
[2024-08-25 10:54] LABS: Anti Glomerular Basement Memb <1.0 AI
[2024-08-25 12:52] LABS: ANA Pattern Nuclear, Homogeneous; ANA Titer 1:40 titer; Anti Nuclear Antibody Titer 1:40 titer
[2024-08-26 12:39] LABS: ANCA Screen NEGATIVE (NEGATIVE)
[2024-08-27 21:14] LABS: Cryoglobulin, QL Negative (Negative)
== END 2024-08-21 11:56 | disposition home or self-care (01) ==
PROVIDERS: PCP Family Medicine; Visit Provider Internal Medicine Nephrology
DX: R76.0 Raised antibody titer (principal)
CPT/HCPCS: 36415; 82595; 83520; 85652; 86036; 86038; 86039; 86225; 86235; 86430

== ENCOUNTER 2024-11-04 13:01 | Outpatient (RCR) | payer MEDICARE, SELFPAY ==
[2024-08-14 11:06] LABS: INR 4.2; Prothrombin Time 41.6 Seconds (11.1-14.7)
[2024-08-21 12:37] LABS: INR 2.6; Prothrombin Time 28.3 Seconds (11.1-14.7)
[2024-09-04 16:45] LABS: INR 2.3; Prothrombin Time 25.5 Seconds (11.1-14.7)
[2024-09-16 14:02] LABS: INR 3.1; Prothrombin Time 31.8 Seconds (11.1-14.7)
[2024-09-30 14:58] LABS: INR 2.5
[2024-10-13 14:53] LABS: Prothrombin Time 31.5 Seconds (11.1-14.7)
[2024-11-04 13:41] LABS: INR 2.5
== END 2024-11-12 23:59 | disposition home or self-care (01) ==
LOC: ANHLAB 13:01
PROVIDERS: PCP Family Medicine; Visit Provider Specialist
DX: Z95.2 Presence of prosthetic heart valve (principal)
CPT/HCPCS: 36415; 85610

== ENCOUNTER 2024-12-17 10:49 | Outpatient (CLI) | payer MEDICARE, SELFPAY ==
[2024-12-17 12:17] LABS: Alanine Aminotransferase 18 U/L (6-35); Albumin Level 3.9 g/dL (3.5-5.1); Alkaline Phosphatase 139 U/L (38-126); Anion Gap 11 mmol/L (4-12); Aspartate Amino Transferase 27 U/L (14-36); Bilirubin,Total 1.2 mg/dL (0.2-1.3); Blood Urea Nitrogen 27 mg/dL (7-17); Calcium 9.5 mg/dL (8.4-10.2); Carbon Dioxide 24 mmol/L (22-30); Chloride 104 mmol/L (98-107); Cholesterol 97 mg/dL (0-200); Estimated Glomerular Filt Rate 42; Glucose 116 mg/dL (65-110); HDL Direct 33 mg/dL; Potassium 4.4 mmol/L (3.4-5.0); Sodium 139 mmol/L (137-145); Triglycerides 124 mg/dL (<150)
--- OUTSIDE RECORDS SUMMARY | 2024-12-17 12:25 | XMS_ITS | Patient Health Summary ---
Author Organization [facility] Address [address] [place] [address] Care Team Providers Care E Commerce Developer Name Role Phone Unavailable Primary Care Provider Unavailabl e Note from [facility],non-owned Affiliates and Associated Physician Practices is amultiple site organization consisting of ambulatory clinics and hospital sitesin [place], [place], [place] and [place]. This disclosure is being madepursuant to the Care Everywhere program and may not contain all information available regarding this patient. Last updated 18.[facility] Social History Tobacco Use Types Packs/Day Years Used Date Smoking Tobacco: Never Assessed Sex and Gender Information Value Date Recorded Sex Assigned at Not on file Gender Identity Not on file Sexual Orientation Not on file Procedures * DERMATOPATHOLOGY(Performed 01/18/2023) * DERMATOPATHOLOGY(Performed 12/22/2021) * DERMATOPATHOLOGY(Performed 05/19/2020) * DERMATOPATHOLOGY(Performed 05/06/2020) * DERMATOPATHOLOGY(Performed 02/14/2018) * DERMATOPATHOLOGY(Performed 08/17/2017) * DERMATOPATHOLOGY(Performed 06/28/2017) * DERMATOPATHOLOGY(Performed 06/04/2017) * GROSS + MICRO EXAM(Performed 02/21/2005) Results * DERMATOPATHOLOGY (01/18/2023 3:33 AM CDT) Only the most recent of8 resultswithin the time period is included. Case Report Dermatopathology Report Case: [id number] Authorizing Provider: Elizabeth Anderson DO Collected: 01/18/2023 03:33 AM Ordering Location: [facility] Received: 01/19/2023 01:48 PM Pathologist: Anisa Biswas MD Specimens: A) - Skin, left lower extremity B) - Skin, right thumb 3:27 PM CDT DERMATOPATHOLOGY LABORATORY Final Diagnosis Specimen A. SKIN, left lower extremity: SEBORRHEIC KERATOSIS, MACULAR (L82.1) Specimen B. SKIN, right thumb: BENIGN VERRUCOUS KERATOSIS, INFLAMED (L82.1) (see microscopic description and comment) 3:[address] [facility]ERMAT[facility]ATHOLOGY [facility]ORAT[facility] Clinical History A: Lentigo r/o Atypia B: NMSC 3 3:[address] [facility]ERMATOPATHOLOGY [facility]ORAT[facility] Gross Description Specimen A: Received is one formalin filled container labeled with the patient's name and designated left lower extremity. The specimen consists of a shave biopsy measuring 4x3x1 mm. Jar 0. Specimen B: Received is one formalin filled container labeled with the patient's name and designated right thumb. The specimen consists of a shave biopsy measuring 4x4x1 mm. Jar 0. 3:[address] [facility]ERMATOPATHOLOGY LABORAT[facility] Microscopic Description Specimen A. SKIN, left lower extremity: Sections show a relatively broad, flat proliferation of small keratinocytes. The surface is gently papillated, and there is increased basilar pigmentation. Specimen B. SKIN, right thumb: Sections show hyperkeratosis, papillomatosis, hypergranulosis, and acanthosis. Inflammatory cells are present within the dermis. Additional deeper sections were obtained and reviewed. COMMENT: These histological findings can be seen in a verruca vulgaris or a seborrheic keratosis. A porokeratosis was also considered. 3:[address] [facility]ERMATOPATHOLOGY LABORAT[facility] Disclaimer An external and internal positive and negative controls are appropriate for the histochemical, immunohistochemical and immunofluorescence stain(s) in this case (if any), except where stated explicitly. The performance characteristics of the stain(s) cited in this report were developed and its performance characteristic determined by the Dermatopathology Laboratory at [facility], directed by Dr. Rosalia Savage. These tests need not be, and therefore are not, approved by the [place] Food and Drug Administration. The tests are used for clinical purposes. Billing Codes Specimen Charges Stain Charges 05878 72784 1 1 3 3:[address] [facility] DERMATOPATHOLOGY LABORATORY Embedded Images 3 3:27 PM CDT DERMATOPATHOLOGY LABORATORY Pathology/Cytology TISSUE SPECIMEN FROM SKIN / Unknown 01/18/2023 3:33 AM CDT 01/19/2023 1:48 PM CDT Miscellaneous samples (specimen) TISSUE SPECIMEN FROM SKIN / Unknown 01/18/2023 3:33 AM CDT 01/19/2023 1:48 PM CDT Elizabeth Min Justin DO LAB - PATHOLOGY/C YTOLOGY ORDERABLES DERMATOPATHOLOGY LABORATORY [facility] - Department of Dermatology [address], [address] [phone] * GROSS + MICRO EXAM (02/21/2005 1:28 PM CDT) Result CASE NUMBER [id number] Comment: ORDERING PHYSICIAN NIDIA MARIE SPECIMEN TYPE Heart Valve-mitral Date 02/21/2005 Physician Oren Marie Gross Description The specimen is received in a formalin-filled container labeled with the patient's name and mitral valve with a pre op mitral valve regurgitation, mitral stenosis also on the label. It consists of three pieces of white yellow, speckled red, firm, slightly pliable, rubbery, irregular tissue measuring 4 x 2.5 x 1 cm. in aggregate. The largest of the pieces measures 3 x 2.5 x 1 cm. Serial sectioning reveals a firm, yellow white cut surface. Director Of Athletics sections are submitted in a single cassette. IGOR/alvnio Microscopic Exam Microscopic examination reveals sections of valvular tissue showing areas of dense fibrosis, myxoid change and focal calcification. In addition, there are areas of edema with a sprinkling of lymphocytes and scattered hemosiderin laden macrophages. Granulomata are not identified. ADY/bk Diagnosis I. Mitral valve, excision -- Fibrosis, myxoid change and focal calcification. -- Focal chronic inflammation and hemosiderin laden macrophages. ADY/bk Quality Control Supervisor bk Pathologist Lorena Cesar M.D. Snomed. 02/22/2005 1049 <3> CPT code 86932 MISCELLANEOUS SAMPLES / Unknown 02/21/2005 1:28 PM CDT 02/21/2005 1:28 PM CDT Historical Provider LAB - PATHOLOGY/C YTOLOGY ORDERABLES
--- OUTSIDE RECORDS SUMMARY | 2024-12-17 12:25 | XMS_ITS | Clinical Summary ---
Author Organization [facility] Address [address] [place] [address] Care Team Providers Care Mixing Tank Operator Name Role Phone Unavailable Primary Care Provider Unavailabl e Social History Tobacco Use Types Packs/Day Years Used Date Smoking Tobacco: Never Assessed Comments Unknown Sex and Gender Information Value Date Recorded Sex Assigned at Not on file Legal Sex Female 12:20 PM CDT Gender Identity Not on file Sexual Orientation Not on file Plan of Treatment Health Maintenance Due Date Last Done Comments DEXA Bone Density 1945 Hepatitis C Virus (HCV) Screening 1945 TdaP Immunization 1945 Pneumococcal Immunization (5 0+ years) (1 of 1 - PCV) 1995 Zoster Immunization (1 of 2) 1995 Respiratory Syncytial Virus (RSV) Immunization (Adult) (1 - 1-dose 75+ series) 01/17/2020 Influenza Immunization (#1) 2024 SARS-COV-2 Immunization (2 - season) 2024 12/08/2020 Hepatitis B Immunization Aged Out No longer eligible based on patient's age to complete this topic Meningococcal Immunization (ACWY) Aged Out No longer eligible based on patient's age to complete this topic Rotavirus Immunization Aged Out No lo nger eligible based on patient's age to complete this topic
--- OUTSIDE RECORDS SUMMARY | 2024-12-17 12:25 | XMS_ITS | Referral Summary ---
Author Organization [facility] Address [address] [place] [address] Care Team Providers Care Brake Lining Driller Name Role Phone Unavailable Primary Care Provider Unavailabl e Source Comments [facility],non-owned Affiliates and Associated Physician Practices is amultiple site organization consisting of ambulatory clinics and hospital sitesin [place], [place], [place] and [place]. This disclosure is being madepursuant to the Care Everywhere program and may not contain all information available regarding this patient. Last updated 18.[facility] Social History Tobacco Use Types Packs/Day Years Used Date Smoking Tobacco: Never Assessed Sex and Gender Information Value Date Recorded Sex Assigned at Not on file Gender Identity Not on file Sexual Orientation Not on file Plan of Treatment Not on file
--- OUTSIDE RECORDS SUMMARY | 2024-12-17 12:25 | XMS_ITS | Encounter Summary ---
Author Organization [facility] Address [address] [place] [address] Care Team Providers Care Motor Equipment Captain Name Role Phone Unavailable Primary Care Provider Unavailabl e Encounter Details Date Type Department Care Team (Late st Contact Info) Description 05/20/2020 Lab Requisition [facility] [address] [place] [id number] Juli Boland MD [address] [place] [address] Social History Tobacco Use Types Packs/Day Years Used Date Smoking Tobacco: Never Assessed Sex and Gender Information Value Date Recorded Sex Assigned at Not on file Gender Identity Not on file Sexual Orientation Not on file documented as of this encounter Plan of Treatment Not on file documented as of this encounter Procedures Procedure Name Priority Date/Time Associated Diagnosis Comments DERMATOPATHOLOGY Routine 05/19/2020 12:0 0 AM CDT documented in this encounter Results * DERMATOPATHOLOGY (05/19/2020 12:00 AM CDT) Case Report Dermatopathology Report Case: [id number] Authorizing Provider: Juli Boland MD Collected: 05/19/2020 12:00 AM Ordering Location: [facility] Received: 05/20/2020 11:00 AM Pathologist: Anisa Biswas MD Specimen: Skin, right back 0 4:51 PM CDT DERMATOPATHOLOGY LABORATORY Final Diagnosis Specimen A. SKIN, right back: DERMAL SCAR RESIDUAL BASAL CELL CARCINOMA NOT IDENTIFIED (L90.5) 0 4:51 PM CDT DERMATOPATHOLOGY LABORATORY Clinical History BCC; bx proven. Previous Bx: [id number]. 0 4:51 PM CDT DERMATOPATHOLOGY LABORATORY Gross Description Specimen A: Received is one formalin filled container labeled with the patient's name and designated right back.The specimen consists of an ellipse measuring [id number] and is oriented with the notch at the 3 o'clock position labeled on the requisition as superior. The epidermal surface consists of a centrally located 11x8mm previous biopsy site. The 12 to 6 o'clock margin is inked green. The 6 o'clock to 12 o'clock margin is inked black. The 12 o'clock tip is submitted in cassette 1. The 6 o'clock tip is submitted in cassette 2. The remainder of the ellipse is serially sectioned and submitted in cassettes 3-5. Jar 0. 0 4:51 PM CDT DERMATOPATHOLOGY LABORATORY Microscopic Description Specimen A. SKIN, right back: There are fibroblasts and collagen bundles oriented parallel to the skin surface. There are elongated blood vessels, some of which are oriented perpendicular to the skin surface. No basal cell carcinoma is identified. 0 4:51 PM CDT DERMATOPATHOLOGY LABORATORY Disclaimer An external and internal positive and negative controls are appropriate for the histochemical, immunohistochemical and immunofluorescence stain(s) in this case (if any), except where stated explicitly. The performance characteristics of the stain(s) cited in this report were developed and its performance characteristic determined by the Dermatopathology Laboratory at [facility], directed by Dr. Rosalia Savage. These tests need not be, and therefore are not, approved by the [place] Food and Drug Administration. The tests are used for clinical purposes. Billing Codes Specimen Charges Stain Charges 48024 1 0 4:51 PM CDT DERMATOPATHOLOGY LABORATORY Embedded Images 0 4:51 PM CDT DERMATOPATHOLOGY LABORATORY Pathology/Cytolog y TISSUE SPECIMEN FROM SKIN / Unknown 05/19/2020 05/20/2020 11:00 AM CDT Juli Boland MD LAB - PATHOLOGY/CYTO LOGY ORDERABLES DERMATOPATHOLOGY LABORATORY [facility] - Department of Dermatology Medical Microbiologist [place]/[address] [phone] documented in this encounter Visit Diagnoses Not on filedocumented in this encounter
--- OUTSIDE RECORDS SUMMARY | 2024-12-17 12:25 | XMS_ITS | Encounter Summary ---
Author Organization [facility] Address [address] [place] [address] Care Team Providers Care Auto Wash Buffer Name Role Phone Irina Browning MD Primary Care Provider [phone] Reason for Visit * Reason Onset Date Comments INR results 11/25/2024 Encounter Details Date Type Department Care Team (Late st Contact Info) Description 11/25/2024 Telephone [facility] Medical Group Cardiology [address] [address] Nathanael Hendrickson MD [address] [facility] [address] [place] [address] INR results Social History Tobacco Use Types Packs/Day Years Used Date Smoking Tobacco: Former Smokeless Tobacco: Never Alcohol Use Standard Drinks/Week Comments No 0 (1 standard drink = 0.6 oz pur e alcohol) Personal Safety Answer Date Recorded Getting School Help Needed Not on file 10/12 Comments Unknown Sex and Gender Information Value Date Recorded Sex Assigned at Not on file Legal Sex Female 3:05 AM SCIENTIFIC ILLUSTRATOR Gender Identity Not on file Sexual Orientation Straight 12/15/2020 5: 29 PM SCIENTIFIC ILLUSTRATOR documented as of this encounter Miscellaneous Notes * Telephone Encounter - Kimberly Garcia RN - 11/25/2024 10:27 AM SCIENTIFIC ILLUSTRATOR See AC note. NTIFIC ILLUSTRATOR * Telephone Encounter - Melanie Rizo - 11/25/2024 9:58 AM CST Patient states that she had her INR drawn yesterday 11/24 at . Requesting a call back to go over the results. Please advise. Thank you. Contact [phone] NTIFIC ILLUSTRATOR documented in this encounter Plan of Treatment Not on file documented as of this encounter Visit Diagnoses Not on filedocumented in this encounter Care Teams Auto Wash Buffer Relationship Specialty Start Date End Date Irina Browning MD PCP - General Family Medicine 12/16/20 documented as of this encounter
--- OUTSIDE RECORDS SUMMARY | 2024-12-17 12:25 | XMS_ITS | Encounter Summary ---
Author Organization [facility] Address [address] [address] Care Team Providers Care Slicing Machine Operator Name Role Phone Unavailable Primary Care Provider Unavailabl e Encounter Details Date Type Department Care Team (Late st Contact Info) Description 05/10/2020 Lab Requisition [facility] [address] [place] [phone] Juli Boland MD [address] [place] [address] Social History Tobacco Use Types Packs/Day Years Used Date Smoking Tobacco: Never Assessed Sex and Gender Information Value Date Recorded Sex Assigned at Not on file Gender Identity Not on file Sexual Orientation Not on file documented as of this encounter Plan of Treatment Not on file documented as of this encounter Procedures Procedure Name Priority Date/Time Associated Diagnosis Comments DERMATOPATHOLOGY Routine 05/06/2020 12:0 0 AM CDT documented in this encounter Results * DERMATOPATHOLOGY (05/06/2020 12:00 AM CDT) Case Report Dermatopathology Report Case: [id number] Authorizing Provider: Juli Boland MD Collected: 05/06/2020 12:00 AM Ordering Location: [facility] Received: 05/10/2020 11:06 AM Pathologist: Rhonda Savage MD Specimen: Skin, right back 0 2:51 PM CDT DERMATOPATHOLOGY LABORATORY Final Diagnosis Specimen A. SKIN, right back: BASAL CELL CARCINOMA, SUPERFICIAL MULTIFOCAL (C44.519) 0 2:51 PM CDT DERMATOPATHOLOGY LABORATORY Clinical History Esparto papule R/O BCC. 0 2:51 PM CDT DERMATOPATHOLOGY LABORATORY Gross Description Specimen A: Received is one formalin filled container labeled with the patient's name and designated right back. The specimen consists of a shave measuring [id number]. Jar 0. 0 2:51 PM CDT DERMATOPATHOLOGY LABORATORY Microscopic Description Specimen A. SKIN, right back: Attached to the undersurface of the epidermis, there are small aggregates of basaloid cells with a high nuclear to cytoplasmic ratio and peripheral palisading. 0 2:51 PM CDT DERMATOPATHOLOGY LABORATORY Disclaimer An external and internal positive and negative controls are appropriate for the histochemical, immunohistochemical and immunofluorescence stain(s) in this case (if any), except where stated explicitly. The performance characteristics of the stain(s) cited in this report were developed and its performance characteristic determined by the Dermatopathology Laboratory at [facility], directed by Dr. Rosalia Savage. These tests need not be, and therefore are not, approved by the [place] Food and Drug Administration. The tests are used for clinical purposes. Billing Codes Specimen Charges Stain Charges 88544 1 0 2:51 PM CDT DERMATOPATHOLOGY LABORATORY Embedded Images 0 2:51 PM CDT DERMATOPATHOLOGY LABORATORY Pathology/Cytolog y TISSUE SPECIMEN FROM SKIN / Unknown 05/06/2020 05/10/2020 11:06 AM CDT Juli Boland MD LAB - PATHOLOGY/CYTO LOGY ORDERABLES Performing Organization Address City/State/[facility] Co de Phone Number DERMATOPATHOLOGY LABORATORY [facility] - Department of Dermatology [employer]/[address] [phone] documented in this encounter Visit Diagnoses Not on filedocumented in this encounter
--- OUTSIDE RECORDS SUMMARY | 2024-12-17 12:25 | XMS_ITS | Clinical Summary ---
Author Organization [facility] Address [address] [place] [address] Care Team Providers Care Drilling Fluids Specialist Name Role Phone Unavailable Primary Care Provider Unavailabl e Source Comments [facility],non-owned Affiliates and Associated Physician Practices is amultiple site organization consisting of ambulatory clinics and hospital sitesin [place], [place], [place] and [place]. This disclosure is being madepursuant to the Care Everywhere program and may not contain all information available regarding this patient. Last updated 18.[facility] [employer] Social History Tobacco Use Types Packs/Day Years Used Date Smoking Tobacco: Never Assessed Sex and Gender Information Value Date Recorded Sex Assigned at Not on file Gender Identity Not on file Sexual Orientation Not on file Plan of Treatment Health Maintenance Due Date Last Done Comments BONE DENSITY TESTING 1945 DTAP/TDAP/TD VACCINES (1 - Tdap) 01/17/1964 PNEUMOCOCCAL VACCINE 50+ (1 of 1 - PCV) 1995 ZOSTER VACCINE (1 of 2) 1995 Respiratory Syncytial Virus (RSV) Vaccine Pt: or over 60 yrs (1 - 1-dose 75+ series) 01/17/2020 COVID-19 VACCINE ( - 2023-2 5 season) 2024 INFLUENZA VACCINE (#1) 2024 DEPRESSION SCREENING 10/22/2024 HEPATITIS B VACCINE Aged Out No longe r eligible based on patient's age to complete this topic HIB VACCINE Aged Out No longer eligi ble based on patient's age to complete this topic HPV VACCINE Aged Out No longer eligi ble based on patient's age to complete this topic MENINGOCOCCAL (Group B) VACCINE Aged Out No longer eligible based on patient's age to complete this topic MENINGOCOCCAL VACCINE Aged Out No jenna unruly eligible based on patient's age to complete this topic
--- OUTSIDE RECORDS SUMMARY | 2024-12-17 12:25 | XMS_ITS | Clinical Summary ---
Author Organization [facility] [place] [address] Address [address] [place] [address] Care Team Providers Care Instrument And Control Technician Name Role Phone Irina Browning MD Primary Care Provider [phone] Allergies No known active allergies Medications pravastatin (PRAVACHOL) 20 mg tablet take 1 Tablet (20MG) by oral route every day 0 2 Active lisinopril (PRINIVIL,ZESTRI L) 2.5 mg tablet take 1 tablet by oral route every day 0 0 4 Active furosemide (LASIX) 20 mg tablet take 1 tablet by oral route every day 0 0 5 Active metFORMIN (GLUCOPHAGE) 500 mg tablet take 1 tablet by oral route 2 times every day with morning and evening meals 0 6 Active glipiZIDE (GLUCOTROL) 5 mg tabletIndication s:type 2 diabetes mellitus Take 1 tablet (5 mg total) by mouth 2 (two) times a day before breakfast and lunch Active latanoprost (XALATAN) 0.005 % ophthalmic solution Administer 1 drop into the right eye daily Active potassium chloride ER (KLOR-CON) 10 mEq CR tablet Take 1 tablet/capsule (10 mEq total) by mouth daily Active vit C/E/zinc ox/edwin/lut/zeax (ICAPS AREDS2 ORAL) Take by mouth 2 (two) times a day Active dapagliflozin propanediol (FARXIGA) 10 mg tablet 1 tablet (10 mg total) Active warfarin (COUMADIN) 1 mg tablet TAKE 1 TABLET BY MOUTH EVERY DAY 90 tablet 4 Active warfarin (COUMADIN) 5 mg tablet TAKE 1 TABLET (5 MG TOTAL) BY MOUTH DAILY. 90 tablet 5 Active warfarin (COUMADIN) 4 mg tablet TAKE 1 TABLET BY MOUTH EVERY DAY OR DIRECTED BY PHYSICIAN. 90 tablet 5 Active metoprolol XL (TOPROL-XL) 50 mg extended release tablet TAKE 1 TABLET BY MOUTH EVERY DAY 90 tablet 1 5 Active Active Problems Problem Noted Date Diagnosed Date Impacted cerumen of left ear 05/03/2020 Conductive hearing loss of left ear 05/03/2020 H/O mitral valve replacement with mechanical jackie ve 06/21/2017 Chronic atrial fibrillation 06/21/2017 Resolved Problems Problem Noted Date Diagnosed Date Resolved Date Aortic valve disorders [I35.9] 03/27/2017 12/13/2017 Encounters Date Type Department Care Team Description 12/08/2024 Anticoagulation Visit [facility] Cardiology [address] [place] [address] [place] [phone] Ken Wilburn RN 11/25/2024 Anticoagulation Visit [facility] Cardiology [address] [place] [address] [place] [phone] Kimberly Garcia RN 11/25/2024 Telephone [facility] Cardiology [address] [place] [address] [place] [phone] Nathanael Hendrickson MD INR results 11/04/2024 Anticoagulation Visit [facility] Cardiology [address] [place] [address] [place] [phone] Ken Wilburn RN 10/13/2024 Anticoagulation Visit [facility] Cardiology [address] [place] [address] [place] [phone] Ken Wilburn RN 10/01/2024 Anticoagulation Visit [facility] Cardiology [address] [place] [address] [place] [phone] Ken Wilburn RN 09/16/2024 Anticoagulation Visit [facility] Cardiology [address] [place] [address] [place] [phone] Ken Wilburn RN from Last 3 Months Surgical History Surgery Date Site/Laterality Comments AORTIC VALVE REPLACEMENT CHOLECYSTECTOMY SKIN CANCER EXCISION Medical History Medical History Date Comments Atrial fibrillation (CMS/HCC) (HCC) Heart disease Glaucoma Diabetes (HCC) Family History Medical History Relation Name Comments Cancer Mother Relation Name Status Comments Father (Age 85) Mother (Age 75) Social History Tobacco Use Types Packs/Day Years Used Date Smoking Tobacco: Former Smokeless Tobacco: Never Tobacco Cessation:Counseling Given: Not Answered Alcohol Use Standard Drinks/Week Comments No 0 (1 standard drink = 0.6 oz pur e alcohol) Personal Safety Answer Date Recorded Getting School Help Needed Not on file 10/12 Comments Unknown Sex and Gender Information Value Date Recorded Sex Assigned at Not on file 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 Gender Identity Not on file Sexual Orientation Straight 12/15/2020 5: 29 PM NAVY DIVER Obstetrics History Last Filed Vital Signs Vital Sign Reading Time Taken Comments Blood Pressure 122/68 06/26/2024 9:39 AM CDT Pulse 77 06/26/2024 9:39 AM CDT Temperature 37.1 C (98.7 F) 05/03/2020 1:12 PM CDT Respiratory Rate 16 06/21/2017 9:03 AM CDT Oxygen Saturation 90% 06/26/2024 9:39 AM CDT Inhaled Oxygen Concentration - - Weight 85.1 kg (187 lb 11.2 oz) 06/26/2024 9:39 AM CDT Height 170.2 cm (5' 7 ) 06/26/2024 9:39 AM CDT Body Mass Index 29.4 06/26/2024 9:39 AM CDT Plan of Treatment Health Maintenance Due Date Last Done Comments Depression Screening 1945 Fall Risk Assessment 1945 Hepatitis C Screening 1945 Osteoporosis Screening-Bone Density Scan 1945 DTaP/Tdap/Td Vaccine (1 - Tdap) 01/17/1956 Hepatitis B Screening 1963 Pneumococcal vaccine 65+ (1 of 2 - PCV) 01/17/1964 Zoster Vaccine (1 of 2) 1995 Well Visit 65+ 2010 Influenza Vaccine (#1) 2024 Procedures Procedure Name Priority Date/Time Associated Diagnosis Comments PROTIME-INR Routine 12/08/2024 PROTIME-INR Routine 11/24/2024 PROTIME-INR Routine 11/04/2024 PROTIME-INR Routine 10/13/2024 PROTIME-INR Routine 09/30/2024 PROTIME-INR Routine 09/16/2024 from Last 3 Months Results * (ABNORMAL) Protime-INR (12/08/2024) INR 2.50(A) 0.90 - 1.10 EXTERNAL LAB Blood Result [facility] Provider MD LAB BLOOD ORDERABLES Serina l Result EXTERNAL LAB * (ABNORMAL) Protime-INR (11/24/2024) INR 2.40(A) 0.90 - 1.10 EXTERNAL LAB Blood Result [facility] Provider MD LAB BLOOD ORDERABLES Serina l Result EXTERNAL LAB * (ABNORMAL) Protime-INR (11/04/2024) INR 2.50(A) 0.90 - 1.10 EXTERNAL LAB Blood Result [facility] Provider MD LAB BLOOD ORDERABLES Serina l Result EXTERNAL LAB * (ABNORMAL) Protime-INR (10/13/2024) INR 3.00(A) 0.90 - 1.10 EXTERNAL LAB Blood us Historical Provider MD LAB BLOOD ORDERABLES Serina l Result EXTERNAL LAB * (ABNORMAL) Protime-INR (09/30/2024) INR 2.50(A) 0.90 - 1.10 EXTERNAL LAB Blood Historical Provider MD LAB BLOOD ORDERABLES Serina l Result EXTERNAL LAB * (ABNORMAL) Protime-INR (09/16/2024) INR 3.10(A) 0.90 - 1.10 EXTERNAL LAB Blood [facility] Provider MD LAB BLOOD ORDERABLES Serina l Result EXTERNAL LAB from Last 3 Months [facility] [employer] [facility] Care Teams Instrument And Control Technician Relationship Specialty Start Date End Date Irina Browning MD PCP - General Family Medicine 12/16/20
--- OUTSIDE RECORDS SUMMARY | 2024-12-17 12:25 | XMS_ITS | Referral Summary ---
Author Organization [address] Address [address] [place] [address] Care Team Providers Care Cash Van Salesperson Name Role Phone Irina Browning MD Primary Care Provider Encounters Date Type Department Care Team Description 12/08/2024 Anticoagulation Visit [facility] Cardiology [address] [place] [phone] Ken Wilburn, JAYY 11/25/2024 Anticoagulation Visit [facility] Cardiology [address] [place] [phone] Kimberly Garcia, JAYY 11/25/2024 Telephone [facility] Cardiology [address] [facility] [address] [place] [phone] Nathanael Hendrickson MD INR results 11/04/2024 Anticoagulation Visit [facility] Cardiology [address] [place] [phone] Ken Wilburn RN 10/13/2024 Anticoagulation Visit [facility] Cardiology [address] [facility] [address] [place] [phone] Ken Wilburn, JAYY 10/01/2024 Anticoagulation Visit [facility] Cardiology [address] [place] [phone] Ken Wilburn RN 09/16/2024 Anticoagulation Visit [facility] Cardiology [address] [place] [phone] Ken Wilburn RN from Last 3 Months Allergies No known active allergies Medications pravastatin [...] Date Aortic valve disorders [I35.9] 03/27/2017 12/13/2017 Social History Tobacco Use Types Packs/Day Years [...] on file 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 Gender Identity Not on file Sexual Orientation Straight 12/15/2020 5: 29 PM PERITONEAL DIALYSIS REGISTERED NURSE Last Filed Vital Signs Vital Sign Reading [...] 06/26/2024 9:39 AM CDT Plan of Treatment Not on file Procedures Procedure Name Priority Date/Time Associated Diagnosis Comments PROTIME-INR Routine 12/08/2024 PROTIME-INR Routine 11/24/2024 PROTIME-INR Routine 11/04/2024 PROTIME-INR Routine 10/13/2024 PROTIME-INR Routine 09/30/2024 PROTIME-INR Routine 09/16/2024 from Last 3 Months Results * (ABNORMAL) Protime-INR (12/08/2024) INR 2.50(A) 0.90 - 1.10 EXTERNAL LAB Blood Result [facility] Provider MD LAB BLOOD ORDERABLES Serina l Result EXTERNAL LAB * (ABNORMAL) Protime-INR (11/24/2024) INR 2.40(A) 0.90 - 1.10 EXTERNAL LAB Blood Result [facility] Provider MD LAB BLOOD ORDERABLES Serina l Result EXTERNAL LAB * (ABNORMAL) Protime-INR (11/04/2024) INR 2.50(A) 0.90 - 1.10 EXTERNAL LAB Blood Result [facility] Provider MD LAB BLOOD ORDERABLES Serina l Result EXTERNAL LAB * (ABNORMAL) Protime-INR (10/13/2024) INR 3.00(A) 0.90 - 1.10 EXTERNAL LAB Blood Result [facility] Provider MD LAB BLOOD ORDERABLES Serina l Result EXTERNAL LAB * (ABNORMAL) Protime-INR (09/30/2024) INR 2.50(A) 0.90 - 1.10 EXTERNAL LAB Blood Result [facility] Provider MD LAB BLOOD ORDERABLES Serina l Result EXTERNAL LAB * (ABNORMAL) Protime-INR (09/16/2024) INR 3.10(A) 0.90 - 1.10 EXTERNAL LAB Blood us Historical Provider LAB BLOOD ORDERABLES Serina simeon Result EXTERNAL LAB from Last [address] [facility] [employer] [facility]ICE MEDIC[facility]PO [facility] Care Teams Cash Van Salesperson Relationship Specialty Start Date End Date Irina Browning MD PCP - General Family Medicine 12/16/20
--- OUTSIDE RECORDS SUMMARY | 2024-12-17 12:25 | XMS_ITS | Encounter Summary ---
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 Gender Identity Not on file Sexual Orientation Straight 12/15/2020 5: 29 PM PRODUCT MARKETING CONSULTANT documented as of this encounter Plan of Treatment Not on file documented as of this encounter Procedures Procedure Name Priority Date/Time Associated Diagnosis Comments SCAN - LABS 12/17/2023 documented in this encounter Results * SCAN - LABS (12/17/2023) us Provider Scanning Final Result documented in this encounter Visit Diagnoses Not on filedocumented in this encounter Care Teams Chart Computer Relationship Specialty Start Date End Date Irina Browning MD PCP - General Family Medicine 12/16/20 documented as of this encounter
--- OUTSIDE RECORDS SUMMARY | 2024-12-17 12:25 | XMS_ITS | Encounter Summary ---
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 Gender Identity Not on file Sexual Orientation Straight 12/15/2020 5: 29 PM TRUCK ENGINE ASSEMBLER documented as of this encounter Plan of Treatment Not on file documented as of this encounter Procedures Procedure Name Priority Date/Time Associated Diagnosis Comments SCAN - LABS 04/28/2024 documented in this encounter Results * SCAN - LABS (04/28/2024) us Provider Scanning Final Result documented in this encounter Visit Diagnoses Not on filedocumented in this encounter Care Teams Sharples Machine Operator Relationship Specialty Start Date End Date Irina Browning MD PCP - General Family Medicine 12/16/20 documented as of this encounter
--- OUTSIDE RECORDS SUMMARY | 2024-12-17 12:25 | XMS_ITS | Encounter Summary ---
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 Gender Identity Not on file Sexual Orientation Straight 12/15/2020 5: 29 PM REPAIRER [employer]ER HEADS documented as of this encounter Plan of Treatment Not on file documented as of this encounter Procedures Procedure Name Priority Date/Time Associated Diagnosis Comments SCAN - LABS 12/24/2023 documented in this encounter Results * SCAN - LABS (12/24/2023) us Provider Scanning Final Result documented in this encounter Visit Diagnoses Not on filedocumented in this encounter Care Teams Tie Layer Relationship Specialty Start Date End Date Irina Browning MD PCP - General Family Medicine 12/16/20 documented as of this encounter
[2024-12-17 12:28] LABS: LDL Cholesterol Direct 31 mg/dL
[2024-12-17 12:46] LABS: Vitamin D 25 Hydroxy 84.3 ng/mL
[2024-12-17 13:46] LABS: Hemoglobin A1C 7.6 % (<5.7)
== END 2024-12-17 10:50 | disposition home or self-care (01) ==
PROVIDERS: PCP Family Medicine; Visit Provider Internal Medicine Endocrinology, Diabetes & Metabolism
DX: E78.2 Mixed hyperlipidemia (principal); E11.9 Type 2 diabetes mellitus without complications; E21.3 Hyperparathyroidism, unspecified; R79.89 Other specified abnormal findings of blood chemistry
CPT/HCPCS: 36415; 80053; 80061; 82306; 83036

== ENCOUNTER 2025-02-05 14:29 | Outpatient (RCR) | payer MEDICARE, SELFPAY ==
[2024-11-24 11:15] LABS: INR 2.4; Prothrombin Time 26.2 Seconds (11.1-14.7)
[2024-12-08 14:02] LABS: INR 2.5; Prothrombin Time 27.1 Seconds (11.1-14.7)
[2024-12-17 12:18] LABS: INR 2.9; Prothrombin Time 30.8 Seconds (11.1-14.7)
[2025-01-14 13:28] LABS: Prothrombin Time 31.7 Seconds (11.1-14.7)
[2025-02-05 15:07] LABS: INR 2.9; Prothrombin Time 30.5 Seconds (11.1-14.7)
== END 2025-02-22 23:59 | disposition home or self-care (01) ==
LOC: ANHLAB 14:29
PROVIDERS: PCP Family Medicine; Visit Provider Specialist
DX: Z95.2 Presence of prosthetic heart valve (principal)
CPT/HCPCS: 36415; 85610

== ENCOUNTER 2025-05-14 12:08 | Outpatient (RCR) | payer MEDICARE, SELFPAY ==
[2025-03-02 16:18] LABS: INR 2.4; Prothrombin Time 26.5 Seconds (11.1-14.7)
[2025-03-17 14:57] LABS: INR 3.3; Prothrombin Time 33.8 Seconds (11.1-14.7)
[2025-03-31 14:56] LABS: INR 3.8; Prothrombin Time 35.4 Seconds (11.1-14.7)
[2025-04-09 11:21] LABS: INR 2.5; Prothrombin Time 26.4 Seconds (11.1-14.7)
[2025-04-17 12:37] LABS: INR 2.8; Prothrombin Time 28.2 Seconds (11.1-14.7)
[2025-05-14 12:42] LABS: INR 2.8; Prothrombin Time 28.1 Seconds (11.1-14.7)
== END 2025-05-31 23:59 | disposition home or self-care (01) ==
LOC: ANHLAB 12:08
PROVIDERS: PCP Family Medicine; Visit Provider Specialist
DX: Z95.2 Presence of prosthetic heart valve (principal)
CPT/HCPCS: 36415; 85610

== ENCOUNTER 2025-05-22 10:19 | Outpatient (CLI) | payer MEDICARE, SELFPAY ==
--- OUTSIDE RECORDS SUMMARY | 2025-05-22 10:25 | XMS_ITS | Clinical Summary ---
Author Organization [facility] Address [address] [place] [address] Care Team Providers Care Printing Film Stripper Name Role Phone Unavailable Primary Care Provider Unavailabl e Social History Tobacco Use Types Packs/Day Years Used Date Smoking Tobacco: Never Assessed Comments Unknown Sex and Gender Information Value Date Recorded Sex Assigned at Not on file Legal Sex Female 12:20 PM CDT Gender Identity Not on file Sexual Orientation Not on file Plan of Treatment Health Maintenance Due Date Last Done Comments Hepatitis C Virus (HCV) Screening 1945 TdaP Immunization 1945 Pneumococcal Immunization (5 0+ years) (1 of 1 - PCV) 1995 Zoster Immunization (1 of 2) 1995 Respiratory Syncytial Virus (RSV) Immunization (Adult) (1 - 1-dose 75+ series) 01/17/2020 SARS-COV-2 Immunization (2 - season) 2024 12/08/2020 Influenza Immunization (#1) 2025 Hepatitis B Immunization Aged Out No longer eligible based on patient's age to complete this topic Human Papillomavirus (HPV) Immunization Aged Out No longer eligible b ased on patient's age to complete this topic Meningococcal Immunization (ACWY) Aged Out No longer eligible based on patient's age to complete this topic Rotavirus Immunization Aged Out No lo nger eligible based on patient's age to complete this topic
--- OUTSIDE RECORDS SUMMARY | 2025-05-22 10:25 | XMS_ITS | Encounter Summary ---
Author Organization [facility] Healthcare Address [address] [place] [address] Care Team Providers Care Plastic Welding Machine Operator Name Role Phone Irina Browning MD Primary Care Provider [phone] Encounter Details Date Type Department Care Team (Late st Contact Info) Description 03/17/2025 Orders Only [facility] Information Management [address] [place] [address] Scanning, Provider Social History Tobacco Use Types Packs/Day Years Used Date Smoking Tobacco: Former Smokeless Tobacco: Never Alcohol Use Standard Drinks/Week Comments No 0 (1 standard drink = 0.6 oz pur e alcohol) Comments Unknown Sex and Gender Information Value Date Recorded Sex Assigned at Not on file Legal Sex Female 3:05 AM TENTER Gender Identity Not on file Sexual Orientation Straight 12/15/2020 5: 29 PM TENTER documented as of this encounter Plan of Treatment Not on file documented as of this encounter Procedures Procedure Name Priority Date/Time Associated Diagnosis Comments SCAN - LABS 03/17/2025 documented in this encounter Results * SCAN - LABS (03/17/2025) us Provider Scanning Final Result documented in this encounter Visit Diagnoses Not on filedocumented in this encounter Care Teams Plastic Welding Machine Operator Relationship Specialty Start Date End Date Irina Browning MD PCP - General Family Medicine 12/16/20 documented as of this encounter
--- OUTSIDE RECORDS SUMMARY | 2025-05-22 10:25 | XMS_ITS | Encounter Summary ---
Author Organization [facility] Healthcare Address [address] [place] [address] Care Team Providers Care Caul Puller Name Role Phone Irina Browning MD Primary Care Provider [phone] Encounter Details Date Type Department Care Team (Late st Contact Info) Description 05/15/2025 Telephone [facility] Cardiology [address] [facility] [address] [place] [phone] Nathanael Hendrickson MD [address] [facility] [address] [place] [address] Social History Tobacco Use Types Packs/Day Years Used Date Smoking Tobacco: Former Smokeless Tobacco: Never Alcohol Use Standard Drinks/Week Comments No 0 (1 standard drink = 0.6 oz pur e alcohol) Comments Unknown Sex and Gender Information Value Date Recorded Sex Assigned at Not on file 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 * Telephone Encounter - Priscila Romero - 05/15/2025 9:32 AM CDT Pt requesting a call back to discuss the results from her INR that was done yesterday at please advise thank you Contact: documented in this encounter Plan of Treatment Not on file documented as of this encounter Visit Diagnoses Not on filedocumented in this encounter Care Teams Caul Puller Relationship Specialty Start Date End Date Irina Browning MD PCP - General Family Medicine 12/16/20 documented as of this encounter
--- OUTSIDE RECORDS SUMMARY | 2025-05-22 10:25 | XMS_ITS | Encounter Summary ---
Author Organization [facility] Healthcare Address [address] [place] [address] Care Team Providers Care Trailer Park Manager Name Role Phone Irina Browning MD Primary Care Provider [phone] Encounter Details Date Type Department Care Team (Late st Contact Info) Description 03/31/2025 Orders Only [facility] [place] Health Information Management [address] [place] [phone] Scanning, Provider Social History Tobacco Use Types Packs/Day Years Used Date Smoking Tobacco: Former Smokeless Tobacco: Never Alcohol Use Standard Drinks/Week Comments No 0 (1 standard drink = 0.6 oz pur e alcohol) Comments Unknown Sex and Gender Information Value Date Recorded Sex Assigned at Not on file Legal 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 Gender Identity Not on file Sexual Orientation Straight 12/15/2020 5: 29 PM TAR DISTRIBUTOR OPERATOR documented as of this encounter Plan of Treatment Not on file documented as of this encounter Procedures Procedure Name Priority Date/Time Associated Diagnosis Comments SCAN - LABS 03/31/2025 documented in this encounter Results * SCAN - LABS (03/31/2025) us Provider Scanning Final Result documented in this encounter Visit Diagnoses Not on filedocumented in this encounter Care Teams Trailer Park Manager Relationship Specialty Start Date End Date Irina Browning MD PCP - General Family Medicine 12/16/20 documented as of this encounter
--- OUTSIDE RECORDS SUMMARY | 2025-05-22 10:25 | XMS_ITS | Encounter Summary ---
Author Organization [facility] Healthcare Address [address] [place] [address] Care Team Providers Care Order Entry Technician Name Role Phone rIina Browning MD Primary Care Provider [phone] Encounter Details Date Type Department Care Team (Late st Contact Info) Description 05/14/2025 Orders Only [facility] Health Information Management [address] [place] [phone] Scanning, Provider Social History Tobacco Use Types Packs/Day Years Used Date Smoking Tobacco: Former Smokeless Tobacco: Never Alcohol Use Standard Drinks/Week Comments No 0 (1 standard drink = 0.6 oz pur e alcohol) Comments Unknown Sex and Gender Information Value Date Recorded Sex Assigned at Not on file 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 Gender Identity Not on file Sexual Orientation Straight 12/15/2020 5: 29 PM MANAGER SYSTEMS documented as of this encounter Plan of Treatment Not on file documented as of this encounter Procedures Procedure Name Priority Date/Time Associated Diagnosis Comments SCAN - LABS 05/14/2025 documented in this encounter Results * SCAN - LABS (05/14/2025) us Provider Scanning Final Result documented in this encounter Visit Diagnoses Not on filedocumented in this encounter Care Teams Order Entry Technician Relationship Specialty Start Date End Date Irina Browning MD PCP - General Family Medicine 12/16/20 documented as of this encounter
--- OUTSIDE RECORDS SUMMARY | 2025-05-22 10:25 | XMS_ITS | Referral Summary ---
Author Organization [address] Address [address] [facility] [address] [place] [address] Care Team Providers Care Sports Equipment Racker Name Role Phone Irina [place] MD Primary Care Provider Encounters Date Type Department Care Team Description 05/15/2025 Anticoagulation Visit [facility] Medical [facility] Cardiology [address] [facility] [address] [place] [phone] Irina Hoang, RN 05/15/2025 Telephone [facility] Medical [facility] Cardiology [address] [place] [address] [address] [place] [address] Nathanael Hendrickson MD 05/14/2025 Orders Only [facility] Health Information Management [address] [place] [address] Scanning, Provider 04/17/2025 Anticoagulation Visit [facility] Cardiology [address] [place] [address] Kimberly Garcia RN 04/09/2025 Orders Only [facility] Health Information Management [address] [place] [address] Scanning, Provider 04/09/2025 Anticoagulation Visit [facility] Cardiology [address] [place] [address] Irina Hoang, RN 04/01/2025 Anticoagulation Visit [facility] Medical [facility] Cardiology at [address] [place] [address] Kimberly Garcia RN 04/01/2025 Telephone [facility] Cardiology [address] [place] [phone] Nathanael Hendrickson MD 03/31/2025 Orders Only [facility] Health Information Management [address] [place] [address] Scanning, Provider 03/18/2025 Anticoagulation Visit [facility] Cardiology [address] [place] [address] [place] [phone] Ken Wilburn RN 03/17/2025 Orders Only [facility] Health Information Management [address] [place] [address] Scanning, Provider 03/03/2025 Anticoagulation Visit [facility] Cardiology [address] [place] [phone] Ken Wilburn, JAYY 03/02/2025 Orders Only [facility] Health Information Management [address] [place] [address] Scanning, Provider from Last 3 Months Allergies No known active allergies Medications pravastatin (PRAVACHOL) 20 mg tablet take 1 Tablet (20MG) by oral route every day 0 08/29/20 12 Active lisinopril (PRINIVIL,ZESTR IL) 2.5 mg tablet take 1 tablet by oral route every day 0 0 05/28/20 14 Active furosemide (LASIX) 20 mg tablet take 1 tablet by oral route every day 0 0 01/15/20 15 Active metFORMIN (GLUCOPHAGE) 500 mg tablet take 1 tablet by oral route 2 times every day with morning and evening meals 0 06/08/20 16 Active glipiZIDE (GLUCOTROL) 5 mg tabletIndicatio ns:type 2 diabetes mellitus Take 1 tablet (5 mg total) by mouth 2 (two) times a day before breakfast and lunch Active latanoprost (XALATAN) 0.005 % ophthalmic solution Administer 1 drop into the right eye daily Active potassium chloride ER (KLOR-CON) 10 mEq CR tablet Take 1 tablet/capsule (10 mEq total) by mouth daily Active vit C/E/zinc ox/edwin/lut/ron x (ICAPS AREDS2 ORAL) Take by mouth 2 (two) times a day Active dapagliflozin propanediol (FARXIGA) 10 mg tablet 1 tablet (10 mg total) Active ergocalciferol, vitamin D2, (VITAMIN D2 ORAL) Take by mouth Active calcium carbonate-vitam in D3 2,500 mg (1,000 mg elemental)-800 unit tablet Take by mouth Acti ve warfarin (COUMADIN) 1 mg tablet TAKE 1 TABLET BY MOUTH EVERY DAY 90 tablet 03/26/20 25 Active warfarin (COUMADIN) 4 mg tablet TAKE 1 TABLET BY MOUTH EVERY DAY OR DIRECTED BY PHYSICIAN. 90 tablet 05/04/20 25 Active warfarin (COUMADIN) 5 mg tablet TAKE 1 TABLET (5 MG TOTAL) BY MOUTH DAILY. 90 tablet 05/04/20 25 Active metoprolol XL (TOPROL-XL) 50 mg extended release tablet TAKE 1 TABLET BY MOUTH EVERY DAY 90 tablet 2 05/11/20 25 Active metoprolol XL (TOPROL-XL) 50 mg extended release tablet TAKE 1 TABLET BY MOUTH EVERY DAY 90 tablet 1 11/17/19 25 025 Discontinued warfarin (COUMADIN) 5 mg tablet TAKE 1 TABLET (5 MG TOTAL) BY MOUTH DAILY. 90 tablet 02/03/20 25 025 Discontinued warfarin (COUMADIN) 4 mg tablet TAKE 1 TABLET BY MOUTH EVERY DAY OR DIRECTED BY PHYSICIAN. 90 tablet 02/03/20 25 025 Discontinued Active Problems Problem Noted Date Diagnosed Date [...] on file Legal Sex Female 3:05 AM CASER IN Gender Identity Not on file Sexual Orientation Straight 12/15/2020 5: 29 PM CASER IN Last Filed Vital Signs Vital Sign Reading Time Taken Comments Blood Pressure 108/62 01/08/2025 10:41 AM CDT Pulse 76 01/08/2025 10:41 AM CDT Temperature 37.1 C (98.7 F) 05/03/2020 1:12 PM CDT Respiratory Rate 16 06/21/2017 9:03 AM CDT Oxygen Saturation 90% 01/08/2025 10: 41 AM CDT Inhaled Oxygen Concentration - - Weight 84.3 kg (185 lb 12.8 oz) 025 10:41 AM CDT Height 170.2 cm (5' 7) 01/08/2025 10:4 1 AM CDT Body Mass Index 29.1 01/08/2025 10:41 AM CDT Plan of Treatment Not on file Procedures Procedure Name Priority Date/Time Associated Diagnosis Comments SCAN - LABS 05/14/2025 PROTIME-INR Routine 05/14/2025 PROTIME-INR Routine 04/17/2025 SCAN - LABS 04/09/2025 PROTIME-INR Routine 04/09/2025 SCAN - LABS 03/31/2025 PROTIME-INR Routine 03/31/2025 SCAN - LABS 03/17/2025 PROTIME-INR Routine 03/17/2025 PROTIME-INR Routine 03/03/2025 SCAN - LABS 03/02/2025 from Last 3 Months Results * SCAN - LABS (05/14/2025) us Provider Scanning Final Result * (ABNORMAL) Protime-INR (05/14/2025) INR 2.80(A) 0.90 - 1.10 EXTERNAL LAB Blood Historical Provider LAB BLOOD ORDERABLES Serina l Result EXTERNAL LAB * (ABNORMAL) Protime-INR (04/17/2025) INR 2.80(A) 0.90 - 1.10 EXTERNAL LAB Blood Result [facility] Provider MD LAB BLOOD ORDERABLES Edit ed Result - Final Performing Organization Address [facility] de Phone Number EXTERNAL LAB * SCAN - LABS (04/09/2025) us Provider Scanning Final Result * (ABNORMAL) Protime-INR (04/09/2025) INR 2.50(A) 0.90 - 1.10 EXTERNAL LAB Blood Result [facility] Provider MD LAB BLOOD ORDERABLES Serina l Result Performing Organization Address [facility] de Phone Number EXTERNAL LAB * SCAN - LABS (03/31/2025) Provider Scanning Final Result * (ABNORMAL) Protime-INR (03/31/2025) INR 3.80(A) 0.90 - 1.10 EXTERNAL LAB Blood Result [facility] Provider MD LAB BLOOD ORDERABLES Serina l Result Performing Organization Address [facility] de Phone Number EXTERNAL LAB * SCAN - LABS (03/17/2025) Provider Scanning Final Result * (ABNORMAL) Protime-INR (03/17/2025) INR 3.30(A) 0.90 - 1.10 EXTERNAL LAB Blood 03/17/2025 Result [facility] Provider MD LAB BLOOD ORDERABLES Serina l Result EXTERNAL LAB * (ABNORMAL) Protime-INR (03/03/2025) INR 2.40(A) 0.90 - 1.10 EXTERNAL LAB Blood 03/03/2025 Historical Provider LAB BLOOD ORDERABLES Serina simeon Result EXTERNAL LAB * SCAN - LABS (03/02/2025) Provider Scanning Final Result from Last 3 Months [facility] Care Teams Sports Equipment Racker Relationship Specialty Start Date End Date Irina [place] MD PCP - General Family Medicine 12/16/20
--- OUTSIDE RECORDS SUMMARY | 2025-05-22 10:25 | XMS_ITS | Clinical Summary ---
Author Organization [facility] [address] Address [address] [place] [address] Care Team Providers Care Library Historian Name Role Phone Irina [place] MD Primary Care Provider [phone] Allergies No known active allergies Medications pravastatin [...] Department Care Team Description 05/15/2025 Anticoagulation Visit [facility] Cardiology [address] [facility] [address] [place] [address] Irina oHang RN 05/15/2025 Telephone [facility] Medical [facility] Cardiology [address] [facility] [address] [place] [phone] Nathanael Hendrickson MD 05/14/2025 Orders Only [facility] Health Information Management [address] [place] [address] Scanning, Provider 04/17/2025 Anticoagulation Visit [facility] Medical [facility] Cardiology [address] [facility] [address] [place] [address] Kimberly Garcia, JAYY 04/09/2025 Orders Only [facility] Health Information Management [address] [place] [address] Scanning, Provider 04/09/2025 Anticoagulation Visit [facility] Medical [facility] Cardiology [address] [place] [address] [place] [phone] Irina Hoang RN 04/01/2025 Anticoagulation Visit [facility] Medical Group Cardiology at [address] [place] [phone] Kimberly Garcia, JAYY 04/01/2025 Telephone [facility] [place] [facility] Cardiology [address] [place] [address] [place] [phone] Nathaneal Hendrickson MD 03/31/2025 Orders Only [facility] Health Information Management [address] [place] [address] Scanning, Provider 03/18/2025 Anticoagulation Visit [facility] [place] [facility] Cardiology [address] [place] [address] [place] [phone] Ken [place]burn RN 03/17/2025 Orders Only [facility] Health Information Management [address] [place] [phone] Scanning, Provider 03/03/2025 Anticoagulation Visit 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 Gender Identity Not on file Sexual Orientation Straight 12/15/2020 5: 29 PM CORPORATE SALES TRAINER Obstetrics History Last Filed Vital Signs Vital [...] 01/08/2025 10:41 AM CDT Plan of Treatment Health Maintenance Due Date Last Done Comments Depression Screening 1945 Fall Risk Assessment 1945 Osteoporosis Screening-Bone Density Scan 1945 DTaP/Tdap/Td Vaccine (1 - Tdap) 01/17/1956 Hepatitis B Screening 1963 Pneumococcal vaccine 65+ (1 of 2 - PCV) 01/17/1964 Zoster Vaccine (1 of 2) 1995 Well Visit 65+ 2010 Influenza Vaccine (#1) 2025 Procedures Procedure Name Priority Date/Time Associated Diagnosis [...] 0.90 - 1.10 EXTERNAL LAB Blood Result [facility] Provider MD LAB BLOOD ORDERABLES Serina l Result Performing Organization Address [facility]/ZIP Co de Phone Number EXTERNAL LAB * (ABNORMAL) Protime-INR (04/17/2025) INR 2.80(A) 0.90 - 1.10 EXTERNAL LAB Blood Result [facility] Provider MD LAB BLOOD ORDERABLES Edit ed Result - Final EXTERNAL LAB * SCAN - LABS (04/09/2025) us Provider Scanning Final Result * (ABNORMAL) Protime-INR (04/09/2025) INR 2.50(A) 0.90 - 1.10 EXTERNAL LAB Blood Result [facility] Provider MD LAB BLOOD ORDERABLES Serina l Result EXTERNAL LAB * SCAN - LABS (03/31/2025) us Provider Scanning Final Result * (ABNORMAL) Protime-INR (03/31/2025) INR 3.80(A) 0.90 - 1.10 EXTERNAL LAB Blood Result [facility] Historical Provider MD LAB BLOOD ORDERABLES Serina l Result EXTERNAL LAB * SCAN - LABS (03/17/2025) us Provider Scanning Final Result * (ABNORMAL) Protime-INR (03/17/2025) INR 3.30(A) 0.90 - 1.10 EXTERNAL LAB Blood 03/17/2025 Result [facility] Provider MD LAB BLOOD ORDERABLES Serina l Result EXTERNAL LAB * (ABNORMAL) Protime-INR (03/03/2025) INR 2.40(A) 0.90 - 1.10 EXTERNAL LAB Blood 03/03/2025 Result [facility] Provider MD LAB BLOOD ORDERABLES Serina l Result EXTERNAL LAB * SCAN - LABS (03/02/2025) Provider Scanning Final Result from Last 3 Months Insurance [facility] HUMANA CHOICE MEDICARE [facility] Care Teams Library Historian Relationship Specialty Start Date End Date Irina [place] MD PCP - General Family Medicine 12/16/20
--- OUTSIDE RECORDS SUMMARY | 2025-05-22 10:25 | XMS_ITS | Encounter Summary ---
Author Organization [facility] Address [address] [place] [address] Care Team Providers Care Chimney Supervisor Brick Name Role Phone Unavailable Primary Care Provider Unavailabl e Encounter Details Date Type Department Care Team (Late st Contact Info) Description 05/10/2020 Lab Requisition [facility] DermPath Lab [address] [facility] [place] [phone] Juli Boland MD [address] [facility] [address] [place] [address] Social History Tobacco Use Types Packs/Day Years Used Date Smoking Tobacco: Never Assessed Comments Unknown Sex and Gender Information Value Date Recorded Sex Assigned at Not on file 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 Gender Identity Not on file Sexual Orientation Not on file documented as of this encounter Plan of Treatment Not on file documented as of this encounter Procedures Procedure Name Priority Date/Time Associated Diagnosis Comments DERMATOPATHOLOGY Routine 05/06/2020 12:0 0 AM CDT documented in this encounter Results * DERMATOPATHOLOGY (05/06/2020 12:00 AM CDT) Case Report Dermatopathology Report Case: [id number] Authorizing Provider: Juli Boland MD Collected: 05/06/2020 12:00 AM Ordering Location: [facility] Care DermPath Lab Received: 05/10/2020 11:06 AM Pathologist: Rhonda Savage MD Specimen: Skin, right back 0 2:51 PM CDT DERMATOPATHOLOGY LABORATORY Final Diagnosis Specimen A. SKIN, right back: BASAL CELL CARCINOMA, SUPERFICIAL MULTIFOCAL (C44.519) 0 2:51 PM CDT DERMATOPATHOLOGY LABORATORY at 1451 CDT Clinical History Tecumseh papule R/O BCC. 0 2:51 PM CDT DERMATOPATHOLOGY LABORATORY Gross Description Specimen A: Received is one formalin filled container labeled with the patient's name and designated right back. The specimen consists of a shave measuring [id number]. Jar 0. 0 2:51 PM CDT DERMATOPATHOLOGY [...] characteristic determined by the Dermatopathology Laboratory at [facility], directed by Dr. Rosalia Savage. These tests need not be, and therefore are not, approved by the [place] Food and Drug Administration. The tests are used for clinical purposes. Billing Codes Specimen Charges Stain Charges 81707 1 0 2:51 PM CDT DERMATOPATHOLOGY LABORATORY Embedded Images 0 2:51 PM CDT DERMATOPATHOLOGY LABORATORY Pathology/Cytolog y TISSUE SPECIMEN FROM SKIN / Unknown 05/06/2020 05/10/2020 11:06 AM CDT us Juli Boland MD LAB - PATHOLOGY/CYTOLOGY ORD ERABLES Final Result DERMATOPATHOLOGY LABORATORY [facility] - Department of Dermatology [facility] [address], [facility] [phone] documented in this encounter Visit Diagnoses Not on filedocumented in this encounter
--- OUTSIDE RECORDS SUMMARY | 2025-05-22 10:25 | XMS_ITS | Encounter Summary ---
Author Organization [facility] Healthcare Address [address] [place] [address] Care Team Providers Care Wool Puller Name Role Phone Irina [place] MD Primary Care Provider [phone] Encounter Details Date Type Department Care Team (Late st Contact Info) Description 04/28/2024 Orders Only [facility] Health Information Management [address] [place] [phone] Scanning, Provider Social History Tobacco Use Types Packs/Day Years Used Date Smoking Tobacco: Former Smokeless Tobacco: Never Alcohol Use Standard Drinks/Week Comments No 0 (1 standard drink = 0.6 oz pur e alcohol) Comments Unknown Sex and Gender Information Value Date Recorded Sex Assigned at Not on file 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 Gender Identity Not on file Sexual Orientation Straight 12/15/2020 5: 29 PM PROTOTYPE DEICER ASSEMBLER documented as of this encounter Plan of Treatment Not on file documented as of this encounter Procedures Procedure Name Priority Date/Time Associated Diagnosis Comments SCAN - LABS 04/28/2024 documented in this encounter Results * SCAN - LABS (04/28/2024) us Provider Scanning Final Result documented in this encounter Visit Diagnoses Not on filedocumented in this encounter Care Teams Wool Puller Relationship Specialty Start Date End Date Irina [place] MD PCP - General Family Medicine 12/16/20 documented as of this encounter
--- OUTSIDE RECORDS SUMMARY | 2025-05-22 10:25 | XMS_ITS | Encounter Summary ---
Author Organization [facility] Healthcare Address [address] [place] [address] Care Team Providers Care Education Liaison Name Role Phone Irina [place] MD Primary Care Provider [phone] Encounter Details Date Type Department Care Team (Late st Contact Info) Description 04/09/2025 Orders Only [facility] Information Management [address] [place] [phone] Scanning, Provider Social History Tobacco Use Types Packs/Day Years Used Date Smoking Tobacco: Former Smokeless Tobacco: Never Alcohol Use Standard Drinks/Week Comments No 0 (1 standard drink = 0.6 oz pur e alcohol) Comments Unknown Sex and Gender Information Value Date Recorded Sex Assigned at Not on file 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 Gender Identity Not on file Sexual Orientation Straight 12/15/2020 5: 29 PM BUSINESS SERVICES VICE PRESIDENT documented as of this encounter Plan of Treatment Not on file documented as of this encounter Procedures Procedure Name Priority Date/Time Associated Diagnosis Comments SCAN - LABS 04/09/2025 documented in this encounter Results * SCAN - LABS (04/09/2025) us Provider Scanning Final Result documented in this encounter Visit Diagnoses Not on filedocumented in this encounter Care Teams Education Liaison Relationship Specialty Start Date End Date Irina [place] MD PCP - General Family Medicine 12/16/20 documented as of this encounter
--- OUTSIDE RECORDS SUMMARY | 2025-05-22 10:26 | XMS_ITS | Encounter Summary ---
Author Organization [facility] Healthcare Address [address] [place] [address] Care Team Providers Care Health Occupations Teacher Name Role Phone Irina [place] MD Primary Care Provider [phone] Encounter Details Date Type Department Care Team (Late st Contact Info) Description 10/13/2024 Orders Only [facility] Health Information Management [address] [place] [phone] Scanning, Provider Social History Tobacco Use Types Packs/Day Years Used Date Smoking Tobacco: Former Smokeless Tobacco: Never Alcohol Use Standard Drinks/Week Comments No 0 (1 standard drink = 0.6 oz pur e alcohol) Comments Unknown Sex and Gender Information Value Date Recorded Sex Assigned at Not on file Legal 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 Female 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 Gender Identity Not on file Sexual Orientation Straight 12/15/2020 5: 29 PM BOW STAPLER documented as of this encounter Plan of Treatment Not on file documented as of this encounter Procedures Procedure Name Priority Date/Time Associated Diagnosis Comments SCAN - LABS 10/13/2024 documented in this encounter Results * SCAN - LABS (10/13/2024) us Provider Scanning Final Result documented in this encounter Visit Diagnoses Not on filedocumented in this encounter Care Teams Health Occupations Teacher Relationship Specialty Start Date End Date Irina [place] MD PCP - General Family Medicine 12/16/20 documented as of this encounter
--- OUTSIDE RECORDS SUMMARY | 2025-05-22 10:26 | XMS_ITS | Encounter Summary ---
Author Organization [facility] Healthcare Address [address] [place] [address] Care Team Providers Care System Support Technician Name Role Phone Irina [place] MD Primary Care Provider [phone] Encounter Details Date Type Department Care Team (Late st Contact Info) Description 08/07/2024 Orders Only [facility] Health Information Management [address] [place] [phone] Scanning, Provider Social History Tobacco Use Types Packs/Day Years Used Date Smoking Tobacco: Former Smokeless Tobacco: Never Alcohol Use Standard Drinks/Week Comments No 0 (1 standard drink = 0.6 oz pur e alcohol) Comments Unknown Sex and Gender Information Value Date Recorded Sex Assigned at Not on file Legal 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 Gender Identity Not on file Sexual Orientation Straight 12/15/2020 5: 29 PM IMPROVEMENT AUDITOR documented as of this encounter Plan of Treatment Not on file documented as of this encounter Procedures Procedure Name Priority Date/Time Associated Diagnosis Comments SCAN - LABS 08/07/2024 documented in this encounter Results * SCAN - LABS (08/07/2024) us Provider Scanning Final Result documented in this encounter Visit Diagnoses Not on filedocumented in this encounter Care Teams System Support Technician Relationship Specialty Start Date End Date Irina [place] MD PCP - General Family Medicine 12/16/20 documented as of this encounter
--- OUTSIDE RECORDS SUMMARY | 2025-05-22 10:26 | XMS_ITS | Encounter Summary ---
Author Organization [facility] Healthcare Address [address] [place] [address] Care Team Providers Care Costumed Character Name Role Phone Irina [place] MD Primary Care Provider [phone] Encounter Details Date Type Department Care Team (Late st Contact Info) Description 09/16/2024 Orders Only [facility] [place] Information Management [address] [place] [address] Scanning, Provider Social History Tobacco Use Types Packs/Day Years Used Date Smoking Tobacco: Former Smokeless Tobacco: Never Alcohol Use Standard Drinks/Week Comments No 0 (1 standard drink = 0.6 oz pur e alcohol) Comments Unknown Sex and Gender Information Value Date Recorded Sex Assigned at Not on file 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 Gender Identity Not on file Sexual Orientation Straight 12/15/2020 5: 29 PM ALL AROUND PATTERNMAKER documented as of this encounter Plan of Treatment Not on file documented as of this encounter Procedures Procedure Name Priority Date/Time Associated Diagnosis Comments SCAN - LABS 09/16/2024 documented in this encounter Results * SCAN - LABS (09/16/2024) us Provider Scanning Final Result documented in this encounter Visit Diagnoses Not on filedocumented in this encounter Care Teams Costumed Character Relationship Specialty Start Date End Date Irina [place] MD PCP - General Family Medicine 12/16/20 documented as of this encounter
--- OUTSIDE RECORDS SUMMARY | 2025-05-22 10:26 | XMS_ITS | Encounter Summary ---
Author Organization [facility] Healthcare Address [address] [place] [address] Care Team Providers Care Skate Boarder Name Role Phone Irina Browning MD Primary Care Provider Encounter Details Date Type Department Care Team (Late st Contact Info) Description 06/30/2024 Orders Only [facility] [place] Health Information Management [address] [place] [id number] Scanning, Provider Social History Tobacco Use Types Packs/Day Years Used Date Smoking Tobacco: Former Smokeless Tobacco: Never Alcohol Use Standard Drinks/Week Comments No 0 (1 standard drink = 0.6 oz pur e alcohol) Comments Unknown Sex and Gender Information Value Date Recorded Sex Assigned at Not on file Legal Sex Female 3:05 AM 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 Gender Identity Not on file Sexual Orientation Straight 12/15/2020 5: 29 PM 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 documented as of this encounter Plan of Treatment Not on file documented as of this encounter Procedures Procedure Name Priority Date/Time Associated Diagnosis Comments SCAN - LABS 06/30/2024 documented in this encounter Results * SCAN - LABS (06/30/2024) us Provider Scanning Final Result documented in this encounter Visit Diagnoses Not on filedocumented in this encounter Care Teams Skate Boarder Relationship Specialty Start Date End Date Irina Browning MD PCP - General Family Medicine 12/16/20 documented as of this encounter
--- OUTSIDE RECORDS SUMMARY | 2025-05-22 10:26 | XMS_ITS | Encounter Summary ---
Author Organization [facility] Healthcare Address [address] [place] [address] Care Team Providers Care Car Cleaner Name Role Phone Irina Browning MD Primary Care Provider Encounter Details Date Type Department Care Team (Late st Contact Info) Description 07/08/2024 Orders Only [facility] [place] Health Information Management [address] [place] [phone] Scanning, Provider Social History Tobacco Use Types Packs/Day Years Used Date Smoking Tobacco: Former Smokeless Tobacco: Never Alcohol Use Standard Drinks/Week Comments No 0 (1 standard drink = 0.6 oz pur e alcohol) Comments Unknown Sex and Gender Information Value Date Recorded Sex Assigned at Not on file 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 Gender Identity Not on file Sexual Orientation Straight 12/15/2020 5: 29 PM BASIN OPERATOR documented as of this encounter Plan of Treatment Not on file documented as of this encounter Procedures Procedure Name Priority Date/Time Associated Diagnosis Comments SCAN - LABS 07/08/2024 documented in this encounter Results * SCAN - LABS (07/08/2024) us Provider Scanning Final Result documented in this encounter Visit Diagnoses Not on filedocumented in this encounter Care Teams Car Cleaner Relationship Specialty Start Date End Date Irina Browning MD PCP - General Family Medicine 12/16/20 documented as of this encounter
--- OUTSIDE RECORDS SUMMARY | 2025-05-22 10:26 | XMS_ITS | Encounter Summary ---
Author Organization [facility] Healthcare Address [address] [place] [address] Care Team Providers Care Slackman Name Role Phone Irina Browning MD Primary Care Provider [phone] Encounter Details Date Type Department Care Team (Late st Contact Info) Description 06/05/2024 Orders Only [facility] [place] Information Management [address] [place] [address] Scanning, Provider Social History Tobacco Use Types Packs/Day Years Used Date Smoking Tobacco: Former Smokeless Tobacco: Never Alcohol Use Standard Drinks/Week Comments No 0 (1 standard drink = 0.6 oz pur e alcohol) Comments Unknown Sex and Gender Information Value Date Recorded Sex Assigned at Not on file Legal Sex Female 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 Gender Identity Not on file Sexual Orientation Straight 12/15/2020 5: 29 PM ORACLE SOA ARCHITECT documented as of this encounter Plan of Treatment Not on file documented as of this encounter Procedures Procedure Name Priority Date/Time Associated Diagnosis Comments SCAN - LABS 06/05/2024 documented in this encounter Results * SCAN - LABS (06/05/2024) us Provider Scanning Final Result documented in this encounter Visit Diagnoses Not on filedocumented in this encounter Care Teams Slackman Relationship Specialty Start Date End Date Irina Browning MD PCP - General Family Medicine 12/16/20 documented as of this encounter
--- OUTSIDE RECORDS SUMMARY | 2025-05-22 10:26 | XMS_ITS | Encounter Summary ---
Author Organization [facility] Healthcare Address [address] [place] [address] Care Team Providers Care Laboratory Assistant Name Role Phone Irina Browning MD Primary Care Provider [phone] Encounter Details Date Type Department Care Team (Late st Contact Info) Description 09/04/2024 Orders Only [facility] [place] Health Information Management [address] [place] [address] Scanning, Provider Social History Tobacco Use Types Packs/Day Years Used Date Smoking Tobacco: Former Smokeless Tobacco: Never Alcohol Use Standard Drinks/Week Comments No 0 (1 standard drink = 0.6 oz pur e alcohol) Comments Unknown Sex and Gender Information Value Date Recorded Sex Assigned at Not on file 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 Gender Identity Not on file Sexual Orientation Straight 12/15/2020 5: 29 PM KEELER POLYGRAPH OPERATOR documented as of this encounter Plan of Treatment Not on file documented as of this encounter Procedures Procedure Name Priority Date/Time Associated Diagnosis Comments SCAN - LABS 09/04/2024 documented in this encounter Results * SCAN - LABS (09/04/2024) us Provider Scanning Final Result documented in this encounter Visit Diagnoses Not on filedocumented in this encounter Care Teams Laboratory Assistant Relationship Specialty Start Date End Date Irnia Browning MD PCP - General Family Medicine 12/16/20 documented as of this encounter
--- OUTSIDE RECORDS SUMMARY | 2025-05-22 10:26 | XMS_ITS | Encounter Summary ---
Author Organization [facility] Healthcare Address [address] [place] [address] Care Team Providers Care Ethanol Quality Leader Name Role Phone Irina Browning MD Primary Care Provider [phone] Encounter Details Date Type Department Care Team (Late st Contact Info) Description 08/21/2024 Orders Only 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 Gender Identity Not on file Sexual Orientation Straight 12/15/2020 5: 29 PM ASSEMBLER CAMPER documented as of this encounter Plan of Treatment Not on file documented as of this encounter Procedures Procedure Name Priority Date/Time Associated Diagnosis Comments SCAN - LABS 08/21/2024 documented in this encounter Results * SCAN - LABS (08/21/2024) us Provider Scanning Final Result documented in this encounter Visit Diagnoses Not on filedocumented in this encounter Care Teams Ethanol Quality Leader Relationship Specialty Start Date End Date Irina Browning MD PCP - General Family Medicine 12/16/20 documented as of this encounter
--- OUTSIDE RECORDS SUMMARY | 2025-05-22 10:26 | XMS_ITS | Encounter Summary ---
Author Organization [facility] Healthcare Address [address] [place] [address] Care Team Providers Care Ax Survey Worker Name Role Phone Irina Browning MD Primary Care Provider [phone] Encounter Details Date Type Department Care Team (Late st Contact Info) Description 03/02/2025 Orders Only [facility] [place] Health Information Management [address] [place] [address] Scanning, Provider Social History Tobacco Use Types Packs/Day Years Used Date Smoking Tobacco: Former Smokeless Tobacco: Never Alcohol Use Standard Drinks/Week Comments No 0 (1 standard drink = 0.6 oz pur e alcohol) Comments Unknown Sex and Gender Information Value Date Recorded Sex Assigned at Not on file Legal Sex Female 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 Gender Identity Not on file Sexual Orientation Straight 12/15/2020 5: 29 PM DRILL GRINDER documented as of this encounter Plan of Treatment Not on file documented as of this encounter Procedures Procedure Name Priority Date/Time Associated Diagnosis Comments SCAN - LABS 03/02/2025 documented in this encounter Results * SCAN - LABS (03/02/2025) us Provider Scanning Final Result documented in this encounter Visit Diagnoses Not on filedocumented in this encounter Care Teams Ax Survey Worker Relationship Specialty Start Date End Date Irina Browning MD PCP - General Family Medicine 12/16/20 documented as of this encounter
--- OUTSIDE RECORDS SUMMARY | 2025-05-22 10:26 | XMS_ITS | Encounter Summary ---
Author Organization [facility] Address [address] [place] [address] Care Team Providers Care Fur Mixer Name Role Phone Unavailable Primary Care Provider Unavailabl e Encounter Details Date Type Department Care Team (Late st Contact Info) Description 05/20/2020 Lab Requisition [facility] [address] [facility] [place] [id number] Juli Boland MD [address] [facility] [address] [place] [address] Social History Tobacco Use Types Packs/Day Years Used Date Smoking Tobacco: Never Assessed Comments Unknown Sex and Gender Information Value Date Recorded Sex Assigned at Not on file Legal Sex Female 6:18 AM 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 Gender Identity Not on file Sexual Orientation Not on file documented as of this encounter Plan of Treatment Not on file documented as of this encounter Procedures Procedure Name Priority Date/Time Associated Diagnosis Comments DERMATOPATHOLOGY Routine 05/19/2020 12:0 0 AM CDT documented in this encounter Results * DERMATOPATHOLOGY (05/19/2020 12:00 AM CDT) Case Report Dermatopathology Report Case: [id number] Authorizing Provider: Juli Boland MD Collected: 05/19/2020 12:00 AM Ordering Location: [facility] Care DermPath Lab Received: 05/20/2020 11:00 AM Pathologist: Anisa Biswas MD Specimen: Skin, right back 0 4:51 PM CDT DERMATOPATHOLOGY LABORATORY Final Diagnosis Specimen A. SKIN, right back: DERMAL SCAR RESIDUAL BASAL CELL CARCINOMA NOT IDENTIFIED (L90.5) 0 4:51 PM CDT DERMATOPATHOLOGY LABORATORY at 1651 CDT Clinical History BCC; bx proven. Previous Bx: [id number]. 0 4:51 PM CDT DERMATOPATHOLOGY LABORATORY Gross Description Specimen A: Received is one formalin filled container labeled with the patient's name and designated right back.The specimen consists of an ellipse measuring [id number] and is oriented with the notch at [...] characteristic determined by the Dermatopathology Laboratory at [facility], directed by Dr. Rosalia Savage. These tests need not be, and therefore are not, approved by the [place] Food and Drug Administration. The tests are used for clinical purposes. Billing Codes Specimen Charges Stain Charges 14110 1 0 4:51 PM CDT DERMATOPATHOLOGY LABORATORY Embedded Images 0 4:51 PM CDT DERMATOPATHOLOGY LABORATORY Pathology/Cytolog y TISSUE SPECIMEN FROM SKIN / Unknown 05/19/2020 05/20/2020 11:00 AM CDT us Juli Boland MD LAB - PATHOLOGY/CYTOLOGY ORD ERABLES Final Result DERMATOPATHOLOGY LABORATORY [facility] - Department of Dermatology [place] Burner Operator Holder/[address] [phone] documented in this encounter Visit Diagnoses Not on filedocumented in this encounter
--- OUTSIDE RECORDS SUMMARY | 2025-05-22 10:26 | XMS_ITS | Clinical Summary ---
Author Organization [facility] Address [address] [place] [address] Care Team Providers Care Professor Of Art History Name Role Phone Unavailable Primary Care Provider Unavailabl e Source Comments [facility],non-owned Affiliates and Associated Physician Practices is amultiple site organization consisting of ambulatory clinics and hospital sitesin [place], [place], [place] and [place]. This disclosure is being madepursuant to the Care Everywhere program and may not contain all information available regarding this patient. 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 Gender Identity Not on file Sexual Orientation [...] VACCINE ( - 2023-2 5 season) 2024 DEPRESSION SCREENING 10/22/2024 INFLUENZA VACCINE (#1) 2025 HEPATITIS B VACCINE Aged Out No longe r eligible based on patient's age to complete this topic HIB VACCINE Aged Out No longer eligi ble based on patient's age to complete this topic HPV VACCINE Aged Out No longer eligi ble based on patient's age to complete this topic MENINGOCOCCAL (Group B) VACC INE SHARED DECISION-MAKING Aged Out No longer eligibl e based on patient's age to complete this topic MENINGOCOCCAL GROUPS A/C/Y/W VACCINE Aged Out No longer eligible b ased on patient's age to complete this topic Insurance [employer]
--- OUTSIDE RECORDS SUMMARY | 2025-05-22 10:26 | XMS_ITS | Encounter Summary ---
Author Organization [facility] Healthcare Address [address] [place] [address] Care Team Providers Care Chiropractor Assistant Name Role Phone Irina Browning MD Primary Care Provider [phone] Encounter Details Date Type Department Care Team (Late st Contact Info) Description 06/12/2024 Orders Only [facility] Health Information Management [address] [place] [phone] Scanning, Provider Social History Tobacco Use Types Packs/Day Years Used Date Smoking Tobacco: Former Smokeless Tobacco: Never Alcohol Use Standard Drinks/Week Comments No 0 (1 standard drink = 0.6 oz pur e alcohol) Comments Unknown Sex and Gender Information Value Date Recorded Sex Assigned at Not on file Legal Sex Female 3:05 AM TABLE RUNNER Gender Identity Not on file Sexual Orientation Straight 12/15/2020 5: 29 PM TABLE RUNNER documented as of this encounter Plan of Treatment Not on file documented as of this encounter Procedures Procedure Name Priority Date/Time Associated Diagnosis Comments SCAN - LABS 06/12/2024 documented in this encounter Results * SCAN - LABS (06/12/2024) us Provider Scanning Final Result documented in this encounter Visit Diagnoses Not on filedocumented in this encounter Care Teams Chiropractor Assistant Relationship Specialty Start Date End Date Irina Browning MD PCP - General Family Medicine 12/16/20 documented as of this encounter
[2025-05-22 11:11] LABS: Hematocrit 40.6 % (37.0-47.0); Hemoglobin 12.4 g/dL (12.0-15.0); Immature Granulocyte Percent A 0.8 % (0-0.5); Lymphocytes Absolute Auto 0.99 K/mm3 (0.9-3.2); Mean Corpuscular HGB Conc 30.5 g/dl (32-36); Mean Corpuscular Hemoglobin 26.3 pg (26-34); Mean Corpuscular Volume 86.0 fl (80-100); Nucleated Red Blood Cells Absolute Auto 0.000 K/mm3 (0.0-0.012); Nucleated Red Blood Cells Perc 0.0 % (0.0-0.2); Platelet Count Result 239 k/mm3 (150-375); Red Blood Count 4.72 M/mm3 (4.2-5.4); White Blood Count 9.3 K/mm3 (4.5-10.0)
[2025-05-22 11:23] LABS: Hemoglobin A1C 7.3 % (<5.7)
[2025-05-22 11:28] LABS: Total Protein Urine Random 18 mg/dL; Ur Ttl Prot Creatinine Ratio 0.15 mg/mg (0-0.20)
[2025-05-22 11:31] LABS: Iron 63 ug/dL (37-170)
[2025-05-22 11:40] LABS: Alanine Aminotransferase 17 U/L (6-35); Albumin Level 4.2 g/dL (3.5-5.1); Alkaline Phosphatase 174 U/L (38-126); Anion Gap 9 mmol/L (4-12); Aspartate Amino Transferase 33 U/L (14-36); Bilirubin,Total 1.1 mg/dL (0.2-1.3); Blood Urea Nitrogen 23 mg/dL (7-17); Calcium 9.6 mg/dL (8.4-10.2); Carbon Dioxide 23 mmol/L (22-30); Chloride 104 mmol/L (98-107); Cholesterol 113 mg/dL (0-200); Estimated Glomerular Filt Rate 41; Glucose 133 mg/dL (65-110); HDL Direct 32 mg/dL; Percent Iron Saturation 15 % (20-50); Potassium 4.8 mmol/L (3.4-5.0); Sodium 136 mmol/L (137-145); Total Protein 7.4 g/dL (6.3-8.2); Triglycerides 147 mg/dL (<150)
[2025-05-22 11:52] LABS: Parathyroid Intact 55.6 pg/mL (14.5-75.2)
[2025-05-22 12:50] LABS: Ferritin 56.60 ng/mL (11.1-264)
== END 2025-05-22 10:20 | disposition home or self-care (01) ==
PROVIDERS: PCP Family Medicine; Referring Provider Family Medicine; Visit Provider Internal Medicine Nephrology
DX: I12.9 Hypertensive chronic kidney disease with stage 1 through stage 4 chronic kidney disease, or unspecified chronic kidney disease (principal); E11.22 Type 2 diabetes mellitus with diabetic chronic kidney disease; N18.32 Chronic kidney disease, stage 3b; E61.1 Iron deficiency; D64.9 Anemia, unspecified; E78.2 Mixed hyperlipidemia
CPT/HCPCS: 36415; 80053; 80061; 82570; 82728; 83036; 83540; 83550; 83970; 84100; 84156; 85025; 86335

== ENCOUNTER 2025-06-10 14:23 | Outpatient (RCR) | payer MEDICARE, SELFPAY ==
[2025-06-10 15:04] LABS: INR 3.0; Prothrombin Time 30.2 Seconds (11.1-14.7)
== END 2025-09-08 23:59 | disposition home or self-care (01) ==
LOC: ANHLAB 14:23
PROVIDERS: PCP Family Medicine; Visit Provider Specialist
DX: Z95.2 Presence of prosthetic heart valve (principal)
CPT/HCPCS: 36415; 85610

== ENCOUNTER 2025-07-18 10:07 | Inpatient (IN) | payer MEDICARE, SELFPAY ==
[2025-07-18] VITALS (9 sets, daily range): BP systolic 100–146; BP diastolic 57–86; PULSE 76–98; RESP 16–22; TEMP 36.2–36.8; O2SAT 88–98
--- NOTE | ~2025-07-18 | XR_ITS ---
Examination: XR chest 2V Clinical History: hypoxia Comparison: None Technique: PA and Lateral Findings: Cardiomediastinal silhouette normal size and configuration. Right lower lobe airspace disease. Less severe airspace disease left lower lobe. Calcified granuloma left midlung. Small pleural effusions not excluded No acute bony abnormality. IMPRESSION: 1. Bibasilar airspace disease probably pneumonia. 2. Recommend x-ray surveillance until resolution to exclude underlying lesion. Reviewed, dictated and finalized at location R.
--- NOTE | 2025-07-18 10:11 | PC.NURSE ---
pt placed on 2l NC in lobby d/t sat of 88% on RA
--- NOTE | 2025-07-18 11:00 | ED.GENADULT ---
HPI - General Adult General Chief complaint: Recheck/Abnormal Lab/Rx Stated complaint: inr 4.5 Time Seen by Provider: 07/18/25 10:50 Source: patient, RN notes reviewed and old records reviewed Mode of arrival: ambulatory Limitations: no limitations History of Present Illness HPI narrative: This is an 80 year old female who presents for evaluation of an elevated INR but she was found to be hypoxic in triage with oxygen saturation 86% on room air. Patient states she was evaluated by her commercial real estate lender yesterday and she had her INR checked. She states she checked her mychart and it showed that her INR was 4.9. She was concerned about the elevation and if she should take her coumadin. She was not notified about the abnormality by her commercial real estate lender. She took her 5 mg dose last night. She denies chest pain, shortness of breath, fever, leg swelling, any bleeding. She reports having chronic postnasal drainage and cough but her symptoms have been improving . Related Data Home Medications ?Medication ?Instructions ?Recorded ?Confirmed ?Last Taken ?Type latanoprost 0.005 % eye drops 1 drp RIGHT EYE DAILY 12/29/20 07/18/25 07/17/25 History metoprolol succinate 50 mg 50 mg PO DAILY 12/29/20 07/18/25 07/17/25 History tablet,extended release 24 hr (Toprol XL) warfarin 4 mg tablet 4 mg PO DAILY 12/29/20 07/18/25 07/17/25 History cholecalciferol (vitamin D3) 50 100 mcg PO DAILY 12/01/24 07/18/25 07/18/25 History mcg (2,000 unit) capsule vitamins A,C,S-nywh-tqobvy 4,296 1 cap PO BID 12/01/24 07/18/25 07/18/25 History mcg-226 mg-90 mg capsule (PreserVision AREDS) Allergies Allergy/AdvReac Type Severity Reaction Status Date / Time latex Allergy Unknown rash Verified 06/01/25 10:07 Review of Systems Constitutional: Constitutional: Denies chills and Denies fever(s) ENT: Denies nasal congestion and Denies sore throat Cardiovascular: Cardiovascular: Denies chest pain Respiratory: Respiratory: Reports cough and Denies dyspnea Gastrointestinal: Gastrointestinal: Denies abdominal pain PMFSH Past Medical History Medical History Peripheral vascular disease of foot Chronic renal insufficiency, stage III (moderate) Iron deficiency BMI 30.0-30.9,adult Hyperlipidemia associated with type 2 diabetes mellitus Microalbuminuria due to type 2 diabetes mellitus A-fib Hypertension Rheumatic fever CHF (congestive heart failure) Surgical History Surgical History H/O mitral valve replacement with mechanical valve Family History Family History Father Diabetes mellitus Mother Diabetes mellitus Hypertension Lung cancer Sibling Diabetes mellitus Social History Social History Smoking packs per day: 0 Smoking cigarettes per day: 0.0 Years smoked: 30 Smoking pack-years: 0.00 Smoking status: Former smoker Tobacco type: cigarettes Second hand tobacco smoke exposure: No Smoking end date: 10/22/12 Alcohol intake: never Substance use: never Substance use type: does not use Do You Feel Safe in your Home?: Yes Lack of Transportation: No Lack of Food: Never True Current Housing: I Have Housing Concerned About Future Housing: No Difficulty Paying Gas/Electric Bills: No Difficulty Paying for Meds: No Currently Unemployed: No Education: High School Diploma/GED Difficulty w/ Childcare or Family Care: No Living arrangements: with family Occupation/Education: retired Gender identity (if verbalized by the patient): Female Spiritual care concerns: No Agree to blood products: Yes Exam Const: General: no acute distress and alert Nutritional Appearance: well nourished Orientation/consciousness: patient oriented x3 HENMT: Head: normal to inspection Eyes: EOM: EOMs intact bilaterally Resp: Effort & Inspection: normal respiratory effort Auscultation: clear to auscultation bilaterally Cardio: Rate: tachycardic Rhythm: abnormal rhythm Heart sounds: no murmurs GI: GI Palp: Yes Soft to palpation, No Tenderness to palpation present (GI), No Guarding due to palpation present (GI) and No Rigid due to palpation Auscultation: normal bowel sounds Skin: General skin exam: normal color Neuro: General: patient oriented x3, moves all extremities and CN's II-XI intact bilaterally Extrem: General: no pedal edema Psych: Mental Status: mental status grossly normal Affect: normal affect Attitude: cooperative Course Reevaluation(s) Reevaluation #1: I Discussed with patient that she will be admitted as chest xray shows pneumonia and she is requiring oxygen. Date: 07/18/25 Time: 12:00 Consultations Consultation #1: I spoke with Grecia with hospitalist service. She accepts patient to service for treatment of pneumonia needing oxygen supplementation Date: 07/18/25 Time: 12:23 Vital Signs Vital signs: Vital Signs Temperature 98.2 F 07/18/25 10:08 Pulse Rate 87 07/18/25 10:08 Respiratory Rate 16 07/18/25 10:08 Blood Pressure 145/84 H 07/18/25 10:08 Pulse Oximetry 88 L 07/18/25 10:08 Temperature 97.8 F 07/18/25 20:03 Pulse Rate 79 07/18/25 20:03 Respiratory Rate 16 07/18/25 20:03 Blood Pressure 105/60 07/18/25 20:03 Pulse Oximetry 95 07/18/25 20:03 Oxygen Delivery Nasal Cannula 07/18/25 10:56 Oxygen Flow Rate 2 07/18/25 10:56 Medical Decision Making MDM Narrative Medical decision making narrative: Patient presents with due to elevated INR but no bleeding issues. She was found hypoxic in triage. Chest xray, EKG And labs ordered. Chest xray showed right side pneumonia. BNP is elevated so unclear if this is causing hypoxia. Cultures and Rocephin, Azithromycin started. PAtient is on 2 L NC oxygen so needs admission. Differential Diagnosis Differential Diagnosis: pulmonary emboli less likely given anticoagulation, pneumonia, CHF, COPD, bronchitis. Vital Signs Vital Signs: Vital Signs Temperature 98.2 F 07/18/25 10:08 Pulse Rate 87 07/18/25 10:08 Respiratory Rate 16 07/18/25 10:08 Blood Pressure 145/84 H 07/18/25 10:08 Pulse Oximetry 88 L 07/18/25 10:08 Temperature 97.8 F 07/18/25 20:03 Pulse Rate 79 07/18/25 20:03 Respiratory Rate 16 07/18/25 20:03 Blood Pressure 105/60 07/18/25 20:03 Pulse Oximetry 95 07/18/25 20:03 Oxygen Delivery Nasal Cannula 07/18/25 10:56 Oxygen Flow Rate 2 07/18/25 10:56 Lab Data Lab results reviewed: Yes I reviewed the patient's lab results. 07/18/25 11:13 07/18/25 11:13 Labs: Lab Results 07/18/25 07/18/25 Range/Units 11:13 11:13 WBC 9.6 (4.5-10.0) K/mm3 RBC 4.63 (4.2-5.4) M/mm3 Hgb 12.2 (12.0-15.0) g/dL Hct 40.1 (37.0-47.0) % MCV 86.6 (80-100) fl MCH 26.3 (26-34) pg MCHC 30.4 L (32-36) g/dl RDW 17.1 H (11.5-14.5) % Plt Count 264 (150-375) k/mm3 MPV 8.7 (7.4-10.4) fl Immature Gran % (Auto) 0.8 H (0-0.5) % Neut % (Auto) 78.2 H (45.5-73.1) % Lymph % (Auto) 10.0 L (18.3-44.2) % [place] % (Auto) 8.2 (2.6-8.5) % Eos % (Auto) 2.1 (0-4.4) % Baso % (Auto) 0.7 (0.2-1.2) % Lymph # (Auto) 0.96 (0.9-3.2) K/mm3 [place] # (Auto) 0.8 H (0.1-0.6) K/mm3 Eos # (Auto) 0.2 (0-0.3) K/mm3 Baso # (Auto) 0.1 (0.0-0.1) K/mm3 Abs Immat Gran (auto) 0.08 H (0.00-0.031) K/mm3 Absolute Neuts (auto) 7.5 H (1.3-6.7) K/mm3 Absolute Nucleated RBC 0.000 (0.0-0.012) K/mm3 Nucleated RBC % 0.0 (0.0-0.2) % PT 43.7 H (11.1-14.7) Seconds INR 4.9 APTT 79.9 H (22.3-36.8) Seconds Sodium 134 L (137-145) mmol/L Potassium 4.9 (3.4-5.0) mmol/L Chloride 99 (98-107) mmol/L Carbon Dioxide 27 (22-30) mmol/L Anion Gap 8 (4-12) mmol/L BUN 21 H (7-17) mg/dL Creatinine 1.20 H (0.7-1.0) mg/dL Estim Creat Clear Calc 37 ml/min Estimated GFR 43 L (59 - ) Glucose 228 H (65-110) mg/dL Calcium 9.4 (8.4-10.2) mg/dL Total Bilirubin 1.1 (0.2-1.3) mg/dL AST 33 (14-36) U/L ALT 24 (6-35) U/L Alkaline Phosphatase 182 H (38-126) U/L Troponin I 0.016 Cancelled (0.000-0.034) ng/mL NT-Pro-B Natriuret Pep 7210 H (19.9-100) pg/mL Total Protein 7.3 (6.3-8.2) g/dL Albumin 4.1 (3.5-5.1) g/dL Imaging Data Radiologist's impression: ITS Impressions Chest X-Ray 07/18/25 11:47 IMPRESSION: 1. Bibasilar airspace disease probably pneumonia. 2. Recommend x-ray surveillance until resolution to exclude underlying lesion. ECG Data EKG #1: Attestation: I personally reviewed and interpreted this ECG as follows: ECG completion date: 07/18/25 ECG completion time: 11:21 EKG Interpretation: normal rate, atrial fibrillation, non-specific ST changes and NL axis Discharge Plan Discharge Clinical Impression: Acute hypoxemic respiratory failure, Pneumonia, Supratherapeutic INR Patient Disposition: Still a Patient Condition: Stable
--- NOTE | 2025-07-18 11:05 | ECG_ITS ---
Test Date: 2025-07-18 11:21:07 Measurements Intervals [place] Rate: 98 P: 0 NE: 0 QRS: 80 QRSD: 106 T: 19 QT: 346 QTc: 443 Interpretive Statements ATRIAL FIBRILLATION Electronically Signed On 07-19-2025 20:41:19 CDT by Seb Price D.O
[2025-07-18 11:22] LABS: Hematocrit 40.1 % (37.0-47.0); Hemoglobin 12.2 g/dL (12.0-15.0); Immature Granulocyte Percent A 0.8 % (0-0.5); Lymphocytes Absolute Auto 0.96 K/mm3 (0.9-3.2); Mean Corpuscular HGB Conc 30.4 g/dl (32-36); Mean Corpuscular Hemoglobin 26.3 pg (26-34); Mean Corpuscular Volume 86.6 fl (80-100); Nucleated Red Blood Cells Absolute Auto 0.000 K/mm3 (0.0-0.012); Nucleated Red Blood Cells Perc 0.0 % (0.0-0.2); Platelet Count Result 264 k/mm3 (150-375); Red Blood Count 4.63 M/mm3 (4.2-5.4); White Blood Count 9.6 K/mm3 (4.5-10.0)
[2025-07-18 11:35] LABS: Alanine Aminotransferase 24 U/L (6-35); Albumin Level 4.1 g/dL (3.5-5.1); Alkaline Phosphatase 182 U/L (38-126); Anion Gap 8 mmol/L (4-12); Aspartate Amino Transferase 33 U/L (14-36); Bilirubin,Total 1.1 mg/dL (0.2-1.3); Blood Urea Nitrogen 21 mg/dL (7-17); Calcium 9.4 mg/dL (8.4-10.2); Carbon Dioxide 27 mmol/L (22-30); Chloride 99 mmol/L (98-107); Estimated CRCL calculation 37 ml/min; Estimated Glomerular Filt Rate 43; Glucose 228 mg/dL (65-110); Potassium 4.9 mmol/L (3.4-5.0); Sodium 134 mmol/L (137-145); Total Protein 7.3 g/dL (6.3-8.2)
[2025-07-18 11:42] LABS: INR 4.9; NT Pro B Type Natriuretic Pept 7210 pg/mL (19.9-100); Prothrombin Time 43.7 Seconds (11.1-14.7); Troponin I 0.016 ng/mL (0.000-0.034)
[2025-07-18 11:43] LABS: Partial Thromboplastin Time 79.9 Seconds (22.3-36.8)
[2025-07-18] MEDS: FUROSEMIDE INJ 40 MG/4 ML VIAL IV PUSH (12:52)
[2025-07-18] MEDS: cefTRIAXone 1 GM in SODIUM CHLORIDE 0.9% IV 50 ML 100 ML IVPB (12:53)
--- NOTE | 2025-07-18 13:43 | P.HP_ITS ---
H&P: HPI History of Present Illness Date/Time: 07/18/25 13:43 Chief Complaint: INR of 4.9 Narrative: 80-year-old female with past medical history of atrial fibrillation, hypertension, CHF, CKD stage 3, iron deficiency and history of mitral valve replacement with mechanical valve on Coumadin presents the hospital with an INR 4.9. 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 She states that yesterday she took 5 mg of Coumadin last night she did not take a dose today. Patient also complains of a cough and shortness of breath. Patient states that her Cardiology had scheduled a outpatient echocardiogram which she has not done yet. Patient denies nausea or vomiting. Lab work here in the emergency room shows INR 4.9, sodium of 134, BUN of 21, creatinine of 1.2, glucose of 228, alkaline phos of 182, BNP 7210. Chest x-ray shows right lower lobe pneumonia Review of Systems Review of Systems: 12 systems were reviewed and are negativ e except for as per HPI. [facility] Past Medical History Medical History Peripheral vascular disease of foot Chronic renal insufficiency, stage III (moderate) Iron deficiency BMI 30.0-30.9,adult Hyperlipidemia associated with type 2 diabetes mellitus Microalbuminuria due to type 2 diabetes mellitus A-fib Hypertension Rheumatic fever CHF (congestive heart failure) Surgical History Surgical History H/O mitral valve replacement with mechanical valve Family History Family History Father Diabetes mellitus Mother Diabetes mellitus Hypertension Lung cancer Sibling Diabetes mellitus Social History Social History Smoking packs per day: 0 Smoking cigarettes per day: 0.0 Years smoked: 30 Smoking pack-years: 0.00 Smoking status: Former smoker Tobacco type: cigarettes Second hand tobacco smoke exposure: No Smoking end date: 10/22/12 Alcohol intake: never Substance use: never Substance use type: does not use Do You Feel Safe in your Home?: Yes Lack of Transportation: No Lack of Food: Never True Current Housing: I Have Housing Concerned About Future Housing: No Difficulty Paying Gas/Electric Bills: No Difficulty Paying for Meds: No Currently Unemployed: No Education: High School Diploma/GED Difficulty w/ Childcare or Family Care: No Living arrangements: with family Occupation/Education: retired Gender identity (if verbalized by the patient): Female Spiritual care concerns: No Agree to blood products: Yes Meds Home Medications and Allergies Home Medications ?Medication ?Instructions ?Recorded ?Confirmed ?Type latanoprost 0.005 % eye drops 1 drp RIGHT EYE DAILY 07/18/25 History metoprolol succinate 50 mg 50 mg PO DAILY 12/29/20 History tablet,extended release 24 hr (Toprol XL) warfarin 4 mg tablet 4 mg PO DAILY 12/29/2007/18 History lisinopril 2.5 mg tablet 2.5 mg PO DAILY #90 tabs 07/18/25 Rx pravastatin 20 mg tablet 20 mg PO DAILY #90 tabs 10/2207/18/25 Rx furosemide 20 mg tablet 20 mg PO DAILY #90 tabs 10/2307/18/25 Rx potassium chloride 10 mEq 10 meq PO DAILY #90 caps 07/18/25 Rx capsule,extended release cholecalciferol (vitamin D3) 50 100 mcg PO DAILY 12/0107/18/25 History mcg (2,000 unit) capsule vitamins A,C,E-qsme-nkuubm 4,296 1 cap PO BID 12/01/24 07/18/25 History mcg-226 mg-90 mg capsule (PreserVision AREDS) glipizide 5 mg tablet See Rx Instructions .Route 0 05/06/25 07/18/25 Rx .COMPLEX #360 tabs metformin 500 mg tablet 500 mg PO BID #180 tabs 04/2107/18/25 Rx dapagliflozin propanediol 10 mg 10 mg PO QAM #90 tabs 05/27/25 07/18/25 Rx tablet (Farxiga) blood sugar diagnostic #100 ea 07/07/25 07/18/25 Rx blood-glucose meter #1 ea 07/07/25 07/18/25 Rx lancets #100 ea 07/07/25 07/18/25 Rx Allergies Allergy/AdvReac Type Severity Reaction Status Date / Time latex Allergy Unknown rash Verified 06/01/25 10:07 Vital Signs Vital Signs - 24 hr 07/18/25 10:08 07/18/25 10:15 07/18/25 10:54 Temperature 98.2 F Pulse Rate 87 Respiratory Rate 16 22 H Blood Pressure 145/84 H Pulse Oximetry 88 L 96 Oxygen Delivery Nasal Cannula Oxygen Flow Rate 2 07/18/25 10:56 07/18/25 12:30 Temperature Pulse Rate 98 85 Respiratory Rate 22 H 22 H Blood Pressure 133/66 146/86 H Pulse Oximetry 96 96 Oxygen Delivery Nasal Cannula Oxygen Flow Rate 2 Exam Narrative: General: well appearing, appears stated age. HEENT: normocephalic, atraumatic. Mucous membranes moist. EOMI, PERRLA, bilateral sclera anicteric, no conjunctival injection. Neck supple without JVD, lymphadenopathy, or bruit. Respiratory: Coarse diminished Cardiovascular: Regular rate and rhythm, normal S1-S2 upon ascultation. No murmurs, rubs, or clicks. PMI is nondisplaced, capillary refill less than 3 second. Abdomen: Soft, round, no pulsatile masses, nondistended and nontender. No rebound, no guarding. No CVA tenderness, no hepatosplenomegaly. Bowel sounds present to all four quadrants. No high pitch or tinkling sounds, resonant to percussion. Extremities: No cyanosis, clubbing, or edema present. Pulses are palpable 2/2. Active ROM to all four extremities. Neuro: Alert and orientated x 4. PERRLA. Cranial nerves 2-12 intact without focal deficit. Skin: Warm, dry, and intact, without rash, erythema, or lesion. Psych: pleasant, cooperative, normal speech, normal affect, no hallucinations, no dysarthia 2 L nasal cannula H&P: Results Labs Labs: Short CBC 07/18/25 Range/Units 11:13 WBC 9.6 (4.5-10.0) K/mm3 Hgb 12.2 (12.0-15.0) g/dL Hct 40.1 (37.0-47.0) % Plt Count 264 (150-375) k/mm3 [facility] 07/18/25 11:13 Sodium 134 L Potassium 4.9 Chloride 99 Carbon Dioxide 27 BUN 21 H Creatinine 1.20 H Glucose 228 H Calcium 9.4 Cardiac Enzymes 07/18/25 07/18/25 Range/Units 11:13 11:13 Troponin I 0.016 Cancelled (0.000-0.034) ng/mL Liver Function 07/18/25 Range/Units 11:13 Total Bilirubin 1.1 (0.2-1.3) mg/dL AST 33 (14-36) U/L ALT 24 (6-35) U/L Alkaline Phosphatase 182 H (38-126) U/L Albumin 4.1 (3.5-5.1) g/dL Assessment and Plan Assessment and plan (1) Supratherapeutic INR: Code(s): R79.1 - Abnormal coagulation profile Status: Acute Assessment and Plan: 4.9 on admission INR PTT in the a.m. Cardiology consulted (2) Pneumonia: Code(s): J18.9 - Pneumonia, unspecified organism Status: Acute Assessment and Plan: Patient on azithromycin Rocephin Blood cultures pending Guaifenesin Wean oxygen as able (3) CHF (congestive heart failure): Qualifiers: Heart failure type: other Qualified Code(s): I50.9 - Heart failure, unspecified Code(s): I50.9 - Heart failure, unspecified Status: Acute Assessment and Plan: 40 of IV Lasix given in the emergency room Echocardiogram pending Daily weight Albumin Daily Lasix (4) A-fib: Qualifiers: Atrial fibrillation type: paroxysmal Qualified Code(s): I48.0 - Paroxysmal atrial fibrillation Code(s): I48.91 - Unspecified atrial fibrillation Status: Acute Assessment and Plan: Telemetry Patient had her dose metoprolol increased to 100 will start her on that tonight (5) Anticoagulant long-term use: Code(s): Z79.01 - 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) use of anticoagulants Status: Acute Assessment and Plan: Due to mechanical valve Patient takes 5 mg on Sunday and 4 mg the rest of the week Cardiology consulted for management (6) Type 2 diabetes mellitus: Qualifiers: Diabetes mellitus complication detail: with microalbuminuria Diabetes mellitus complication status: with kidney complications Diabetes mellitus assisted insulin use: without assisted use Qualified Code(s): E11.29 - Type 2 diabetes mellitus with other diabetic kidney complication; R80.9 - Proteinuria, unspecified Code(s): E11.9 - Type 2 diabetes mellitus without complications Status: Acute Assessment and Plan: Bertram PARKER Hold home oral diabetic medications SSI (7) Hypertension: Qualifiers: Hypertension type: essential hypertension Qualified Code(s): I10 - Essential (primary) hypertension Code(s): I10 - Essential (primary) hypertension Status: Acute Assessment and Plan: Currently holding lisinopril due to low blood pressures (8) Chronic renal insufficiency, stage III (moderate): Code(s): N18.30 - Chronic kidney disease, stage 3 unspecified Status: Acute Assessment and Plan: Holding lisinopril well aggressively diuresing due to hypotension and kidney protection BMP in the morning Quality VTE Prophylaxis VTE prophylaxis: mechanical ordered and pharmacologic ordered Hospitalist MIPS Advance Care Plan I have confirmed that the patient's Advanced Care Plan is present, code status is documented, or surrogate decision maker is listed in patient medical record.: Yes Medication Reconciliation I have utilized all available resources to obtain, update and review the patients current medications (includes all prescriptions, OTC, herbals, cannabis, and nutritional supplements).: Yes
[2025-07-18] MEDS: AZITHROMYCIN IV 500 MG in SODIUM CHLORIDE 0.9% IV 250 ML IVPB (14:04)
[2025-07-18] MEDS: INSULIN GLARGINE (*BKC) 100 UNITS/ML 12 UNITS SUB-Q (20:50)
[2025-07-18] MEDS: guaiFENesin 12 HR 600 MG TABCR 1200 MG PO (23:17)
[2025-07-18] MEDS: METOPROLOL SUCCINATE EXT REL 100 MG TABCR PO (23:17)
[2025-07-18] MEDS: ALBUMIN HUMAN 25% 25 GM/100 ML 200 ML IVPB (23:19)
[2025-07-19] VITALS (9 sets, daily range): BP systolic 99–105; BP diastolic 57–67; PULSE 76–94; RESP 15–18; TEMP 36.1–36.8; O2SAT 92–94
[2025-07-19 05:48] LABS: Hematocrit 36.9 % (37.0-47.0); Hemoglobin 11.2 g/dL (12.0-15.0); Immature Granulocyte Percent A 0.5 % (0-0.5); Lymphocytes Absolute Auto 0.82 K/mm3 (0.9-3.2); Mean Corpuscular HGB Conc 30.4 g/dl (32-36); Mean Corpuscular Hemoglobin 26.9 pg (26-34); Mean Corpuscular Volume 88.7 fl (80-100); Nucleated Red Blood Cells Absolute Auto 0.000 K/mm3 (0.0-0.012); Nucleated Red Blood Cells Perc 0.0 % (0.0-0.2); Platelet Count Result 222 k/mm3 (150-375); Red Blood Count 4.16 M/mm3 (4.2-5.4); White Blood Count 9.3 K/mm3 (4.5-10.0)
[2025-07-19 06:01] LABS: Prothrombin Time 54.6 Seconds (11.1-14.7)
[2025-07-19 06:03] LABS: Partial Thromboplastin Time 102.7 Seconds (22.3-36.8)
[2025-07-19 06:11] LABS: Alanine Aminotransferase 15 U/L (6-35); Albumin Level 4.0 g/dL (3.5-5.1); Alkaline Phosphatase 147 U/L (38-126); Anion Gap 5 mmol/L (4-12); Aspartate Amino Transferase 32 U/L (14-36); Bilirubin,Total 1.1 mg/dL (0.2-1.3); Blood Urea Nitrogen 22 mg/dL (7-17); Calcium 8.9 mg/dL (8.4-10.2); Carbon Dioxide 33 mmol/L (22-30); Chloride 97 mmol/L (98-107); Estimated CRCL calculation 38 ml/min; Estimated Glomerular Filt Rate 45; Glucose 103 mg/dL (65-110); Potassium 4.4 mmol/L (3.4-5.0); Sodium 135 mmol/L (137-145); Total Protein 6.9 g/dL (6.3-8.2)
[2025-07-19 06:21] LABS: INR 6.6
--- NOTE | 2025-07-19 07:19 | P.PNIM_ITS ---
Progress Note: A&P Assessment and Plan (1) Supratherapeutic INR: Code(s): R79.1 - Abnormal coagulation profile Status: Acute Assessment and Plan: Patient reports no bleeding. No black or bloody stools. No recent changes in diuretics, Has had weight loss in the last year since covid. Reports her taste changed and appetite has decreased. Lost about 9 pounds in the last 6 months. INR 4.9 on admission --Follow INR --Cardiology consulted (2) Pneumonia: Code(s): J18.9 - Pneumonia, unspecified organism Status: Acute Assessment and Plan: Antibiotics: azithromycin/Rocephin 07/18 Blood cultures x2 pending Guaifenesin Wean oxygen as able May need a walking O2 prior to discharge Also diuresing as noted 07/18 Chest x-ray 1. Bibasilar airspace disease probably pneumonia. 2. Recommend x-ray surveillance until resolution to exclude underlying lesion. (3) CHF (congestive heart failure): Qualifiers: Heart failure type: other Qualified Code(s): I50.9 - Heart failure, unspecified Code(s): I50.9 - Heart failure, unspecified Status: Acute Assessment and Plan: Home lasix 20mg daily s/p 40 of IV Lasix given in the emergency room Echocardiogram pending Follow weight: 83.4kg on admission IV Lasix 40mg BID (4) A-fib: Qualifiers: Atrial fibrillation type: paroxysmal Qualified Code(s): I48.0 - Paroxysmal atrial fibrillation Code(s): I48.91 - Unspecified atrial fibrillation Status: Acute Assessment and Plan: Telemetry Patient had her dose metoprolol increased to 100 On warfarin as noted (5) Anticoagulant long-term use: Code(s): Z79.01 - shelter (current) use of anticoagulants Status: Acute Assessment and Plan: Due to mechanical valve, also has afib Patient takes 5 mg on Sunday and 4 mg the rest of the week Cardiology consulted for management Goal INR 2.5-3.5 (6) Type 2 diabetes mellitus: Qualifiers: Diabetes mellitus complication detail: with microalbuminuria Diabetes mellitus complication status: with kidney complications Diabetes mellitus assisted insulin use: without assisted use Qualified Code(s): E11.29 - Type 2 diabetes mellitus with other diabetic kidney complication; R80.9 - Proteinuria, unspecified Code(s): E11.9 - Type 2 diabetes mellitus without complications Status: Acute Assessment and Plan: Bertram PARKER Hold home oral diabetic medications SSI (7) Hypertension: Qualifiers: Hypertension type: essential hypertension Qualified Code(s): I10 - Essential (primary) hypertension Code(s): I10 - Essential (primary) hypertension Status: Acute Assessment and Plan: Currently holding lisinopril due to low blood pressures (8) Chronic renal insufficiency, stage III (moderate): Code(s): N18.30 - Chronic kidney disease, stage 3 unspecified Status: Acute Assessment and Plan: Creatinine 1.20>1.16 aggressively diuresing due to hypotension and kidney protection. BP 104/67 BMP in the morning --Resume lisinopril soon Time Spent With Patient Time: 59 minutes Subjective Date/time seen: 07/19/25 15:45 Interval history: Overnight events VSS. On 2L NC, no oxygen at baseline Feeling short of breath with activity. Usually only notices it with longer distances. Recent outpatient appointments sats have been lower, but still within normal limits Reason for hospitalization Admitted with an elevated INR. Warfarin on hold. Following INR. Diuresing. Review of Systems Review of Systems: 12 systems were reviewed and are negativ e except for as per HPI. Exam Narrative: General: well appearing, appears stated age. HEENT: normocephalic, atraumatic. Mucous membranes moist. EOMI, PERRLA, bilateral sclera anicteric, no conjunctival injection. Neck supple without JVD, lymphadenopathy, or bruit. Respiratory: Coarse diminished Cardiovascular: Regular rate and rhythm, normal S1-S2 upon ascultation. No murmurs, rubs, or clicks. PMI is nondisplaced, capillary refill less than 3 second. Abdomen: Soft, round, no pulsatile masses, nondistended and nontender. No rebound, no guarding. No CVA tenderness, no hepatosplenomegaly. Bowel sounds present to all four quadrants. No high pitch or tinkling sounds, resonant to percussion. Extremities: No cyanosis, clubbing, or edema present. Pulses are palpable 2/2. Active ROM to all four extremities. Neuro: Alert and orientated x 4. PERRLA. Cranial nerves 2-12 intact without focal deficit. Skin: Warm, dry, and intact, without rash, erythema, or lesion. Psych: pleasant, cooperative, normal speech, normal affect, no hallucinations, no dysarthia 2 L nasal cannula Objective Data Vital Signs Vital Signs: Vital Signs - 24 hr 07/18/25 10:08 07/18/25 10:15 07/18/25 10:54 Temperature 98.2 F Pulse Rate 87 Respiratory Rate 16 22 H Blood Pressure 145/84 H Pulse Oximetry 88 L 96 Oxygen Delivery Nasal Cannula Oxygen Flow Rate 2 07/18/25 10:56 07/18/25 12:30 07/18/25 16:24 Temperature 97.1 F L Pulse Rate 98 85 83 Respiratory Rate 22 H 22 H 20 Blood Pressure 133/66 146/86 H 100/57 L Pulse Oximetry 96 96 98 Oxygen Delivery Nasal Cannula Oxygen Flow Rate 2 07/18/25 20:00 07/18/25 20:00 07/18/25 20:03 Temperature 97.8 F Pulse Rate 82 79 Respiratory Rate 16 Blood Pressure 105/60 Pulse Oximetry 95 95 Oxygen Delivery Nasal Cannula Oxygen Flow Rate 2 07/18/25 23:17 07/19/25 00:00 07/19/25 04:00 Temperature Pulse Rate 76 76 86 Respiratory Rate Blood Pressure Pulse Oximetry Oxygen Delivery Oxygen Flow Rate 07/19/25 05:53 Temperature 97 F L Pulse Rate 83 Respiratory Rate 16 Blood Pressure 99/66 L Pulse Oximetry 92 Oxygen Delivery Oxygen Flow Rate Intake/Output Intake/Output: Intake & Output 07/16/25 07/17/25 07/18/25 07/19/25 23:59 23:59 23:59 23:59 Intake Total 390 Balance 390 Meds/Results Medications: Active Medications Generic Name Dose Route Start Last Admin Trade Name Freq PRN Reason Stop Dose Admin Acetaminophen 650 mg 07/18/25 12:26 Acetaminophen 325 Mg Tablet PO Q4H PRN Mild Pain (1-3) or Fever Empagliflozin 25 mg 07/19/25 09:00 Empagliflozin 25 Mg Tablet PO QAM DEUCE Furosemide 40 mg 07/19/25 09:00 Furosemide Inj 40 Mg/4 Ml Vial IV PUSH DAILY DEUCE Glucagon 1 mg 07/18/25 13:56 Glucagon For Inj 1 Mg Vial IM PRN PRN Hypoglycemia Protocol Glucose 15 gm 07/18/25 13:56 Glucose Oral Gel 15 Gm Of Glucse In 37.5 Gm Tube PO PRN PRN Hypoglycemia Protocol Guaifenesin 1,200 mg 07/18/25 23:05 07/18/25 23:17 Guaifenesin 12 Hr 600 Mg Tabcr PO 1,200 mg Q12HR DEUCE Administration Heparin Sodium (Porcine) 5,000 units 07/19/25 09:00 Heparin Sodium 5,000 Units/Ml Vial SUB-Q Q12HR [facility] Ceftriaxone Sodium 1 gm/ 50 mls @ 100 mls/hr 07/19/25 12:00 Sodium Chloride IVPB Q24H DEUCE Azithromycin 500 mg/ Sodium 250 mls @ 250 mls/hr 07/19/25 14:00 Chloride IVPB 07/22/25 14:59 Q24H DEUCE Dextrose 1,000 mls @ 100 mls/hr 07/18/25 13:56 Dextrose 5% 1,000 Ml IVPB PRN PRN Hypoglycemia Protocol Insulin Aspart 2 - 5 units 07/18/25 17:00 07/18/25 17:22 Insulin Aspart (*Bkc) 100 Units/Ml SUB-Q Not Given TIDWM [facility] Protocol Insulin Glargine 12 units 07/18/25 21:00 07/18/25 20:50 Insulin Glargine (*Bkc) 100 Units/Ml 0.15 units/kg (12 units) 12 units SUB-Q Administration HS DEUCE Latanoprost 1 drop 07/19/25 09:00 Latanoprost 0.005% Op Soln 2.5 Ml Btl RIGHT EYE DAILY DEUCE Metoprolol Succinate 100 mg 07/18/25 23:07 07/18/25 23:17 Metoprolol Succinate Ext Rel 100 Mg Tabcr PO 100 mg QAM DEUCE Administration Perflutren Lipid Microsphere 0 ml 07/18/25 23:00 Perflutren Lipid Microspheres 1.5 Ml Vial Diluted To 10 Ml Total Volume IV PUSH 07/21/25 23:01 ONCE PRN adequate visualization Protocol Pravastatin Sodium 20 mg 07/19/25 09:00 Pravastatin Sodium 20 Mg Tablet PO DAILY DEUCE Radiology Results: ITS Impressions Chest X-Ray 07/18/25 11:47 IMPRESSION: 1. Bibasilar airspace disease probably pneumonia. 2. Recommend x-ray surveillance until resolution to exclude underlying lesion. Labs Labs: Laboratory Results - last 24 hr 07/18/25 07/18/25 07/18/25 11:13 11:13 17:06 WBC 9.6 RBC 4.63 Hgb 12.2 Hct 40.1 MCV 86.6 MCH 26.3 MCHC 30.4 L RDW 17.1 H Plt Count 264 MPV 8.7 Immature Gran % (Auto) 0.8 H Neut % (Auto) 78.2 H Lymph % (Auto) 10.0 L Bulloch % (Auto) 8.2 Eos % (Auto) 2.1 Baso % (Auto) 0.7 Lymph # (Auto) 0.96 Bull[place] # (Auto) 0.8 H Eos # (Auto) 0.2 Baso # (Auto) 0.1 Abs Immat Gran (auto) 0.08 H Absolute Neuts (auto) 7.5 H Absolute Nucleated RBC 0.000 Nucleated RBC % 0.0 PT 43.7 H INR 4.9 APTT 79.9 H Sodium 134 L Potassium 4.9 Chloride 99 Carbon Dioxide 27 Anion Gap 8 BUN 21 H Creatinine 1.20 H Estim Creat Clear Calc 37 Estimated GFR 43 L Glucose 228 H POC Capillary Glucose 64 L Calcium 9.4 Total Bilirubin 1.1 AST 33 ALT 24 Alkaline Phosphatase 182 H Troponin I 0.016 Cancelled NT-Pro-B Natriuret Pep 7210 H Total Protein 7.3 Albumin 4.1 07/18/25 07/19/25 20:49 05:42 WBC 9.3 RBC 4.16 L Hgb 11.2 L Hct 36.9 L MCV 88.7 MCH 26.9 MCHC 30.4 L RDW 16.9 H Plt Count 222 MPV 8.8 Immature Gran % (Auto) 0.5 Neut % (Auto) 77.5 H Lymph % (Auto) 8.9 L [place] % (Auto) 8.7 H Eos % (Auto) 3.5 Baso % (Auto) 0.9 Lymph # (Auto) 0.82 L Bull[place] # (Auto) 0.8 H Eos # (Auto) 0.3 Baso # (Auto) 0.1 Abs Immat Gran (auto) 0.05 H Absolute Neuts (auto) 7.2 H Absolute Nucleated RBC 0.000 Nucleated RBC % 0.0 PT 54.6 H D INR 6.6 H* APTT 102.7 H Sodium 135 L Potassium 4.4 Chloride 97 L Carbon Dioxide 33 H Anion Gap 5 BUN 22 H Creatinine 1.16 H Estim Creat Clear Calc 38 Estimated GFR 45 L Glucose 103 POC Capillary Glucose 152 H Calcium 8.9 Total Bilirubin 1.1 AST 32 ALT 15 Alkaline Phosphatase 147 H Troponin I NT-Pro-B Natriuret Pep Total Protein 6.9 Albumin 4.0 Quality VTE Prophylaxis VTE prophylaxis: mechanical ordered and pharmacologic ordered Hospitalist MIPS Advance Care Plan I have confirmed that the patient's Advanced Care Plan is present, code status is documented, or surrogate decision maker is listed in patient medical record.: Yes Medication Reconciliation I have utilized all available resources to obtain, update and review the patients current medications (includes all prescriptions, OTC, herbals, cannabis, and nutritional supplements).: Yes
[2025-07-19] MEDS: FUROSEMIDE INJ 40 MG/4 ML VIAL IV PUSH ×2 (09:02→17:02)
[2025-07-19] MEDS: PRAVASTATIN SODIUM 20 MG TABLET PO (09:02)
[2025-07-19] MEDS: guaiFENesin 12 HR 600 MG TABCR 1200 MG PO ×2 (09:02→20:23)
[2025-07-19] MEDS: EMPAGLIFLOZIN 25 MG TABLET PO (09:02)
[2025-07-19] MEDS: LATANOPROST 0.005% OP SOLN 2.5 ML BTL 1 DROP RIGHT EYE (09:04)
--- NOTE | 2025-07-19 12:09 | PM.CNCAR ---
Assessment and Plan Assessment and plan (1) CHF (congestive heart failure): Qualifiers: Heart failure type: other Qualified Code(s): I50.9 - Heart failure, unspecified Code(s): I50.9 - Heart failure, unspecified Status: Acute Plan Elevated INR etiology is uncertain could be related to liver congestion Acute on chronic diastolic heart failure His status post mechanical mitral valve replacement Diabetes mellitus type 2 Plan Hold warfarin Repeat INR if it is further elevated consider one does vitamin K 1 mg p.o. Lasix 40 mg IV b.i.d. Metoprolol 100 mg daily History of Present Illness History of Present Illness Consult date/time: 07/19/25 12:09 Reason For Visit: Acute respiratory failure with hypoxia Pneumonia Narrative: 80 years old female patient with history of mechanical mitral valve replacement. She presented to the hospital because of elevated INR 4.9. Patient declined changing her dose of warfarin no or changing or adding new medications. She declined using antibiotic recently also she was diagnosed with sinusitis. She denies any recent history of bleeding. She also noted that she has been having shortness of breath with mild activity. The symptoms have been present for last 2 weeks. She was noted to have low oxygen on presentation. Review of Systems Review of Systems: All systems reviewed & are unremarkable except as noted in HPI and below PMFSH Past Medical History Medical History Peripheral vascular disease of foot Chronic renal insufficiency, stage III (moderate) Iron deficiency BMI 30.0-30.9,adult Hyperlipidemia associated with type 2 diabetes mellitus Microalbuminuria due to type 2 diabetes mellitus A-fib Hypertension Rheumatic fever CHF (congestive heart failure) Surgical History Surgical History H/O mitral valve replacement with mechanical valve Family History Family History Father Diabetes mellitus Mother Diabetes mellitus Hypertension Lung cancer Sibling Diabetes mellitus Social History Social History Smoking packs per day: 0 Smoking cigarettes per day: 0.0 Years smoked: 30 Smoking pack-years: 0.00 Smoking status: Former smoker Tobacco type: cigarettes Second hand tobacco smoke exposure: No Smoking end date: 10/22/12 Alcohol intake: never Substance use: never Substance use type: does not use Do You Feel Safe in your Home?: Yes Lack of Transportation: No Lack of Food: Never True Current Housing: I Have Housing Concerned About Future Housing: No Difficulty Paying Gas/Electric Bills: No Difficulty Paying for Meds: No Currently Unemployed: No Education: High School Diploma/GED Difficulty w/ Childcare or Family Care: No Living arrangements: with family Occupation/Education: retired Gender identity (if verbalized by the patient): Female Spiritual care concerns: No Agree to blood products: Yes Meds Home Medications and Allergies Home Medications ?Medication ?Instructions ?Recorded ?Confirmed ?Type latanoprost 0.005 % eye drops 1 drp RIGHT EYE DAILY 12/29/20 07/18/25 History metoprolol succinate 50 mg 50 mg PO DAILY 12/29/20 07/18/25 History tablet,extended release 24 hr (Toprol XL) warfarin 4 mg tablet 4 mg PO DAILY 12/29/20 07/18/25 History lisinopril 2.5 mg tablet 2.5 mg PO DAILY #90 tabs 11/04/24 07/18/25 Rx pravastatin 20 mg tablet 20 mg PO DAILY #90 tabs 11/04/24 07/18/25 Rx furosemide 20 mg tablet 20 mg PO DAILY #90 tabs 11/13/24 07/18/25 Rx potassium chloride 10 mEq 10 meq PO DAILY #90 caps 11/13/24 07/18/25 Rx capsule,extended release cholecalciferol (vitamin D3) 50 100 mcg PO DAILY 12/01/24 07/18/25 History mcg (2,000 unit) capsule vitamins A,C,I-twvt-wbtexz 4,296 1 cap PO BID 12/01/24 07/18/25 History mcg-226 mg-90 mg capsule (PreserVision AREDS) glipizide 5 mg tablet See Rx Instructions .Route 05/06/25 07/18/25 Rx .COMPLEX #360 tabs metformin 500 mg tablet 500 mg PO BID #180 tabs 05/06/25 07/18/25 Rx dapagliflozin propanediol 10 mg 10 mg PO QAM #90 tabs 05/27/25 07/18/25 Rx tablet (Farxiga) blood sugar diagnostic #100 ea 07/07/25 07/18/25 Rx blood-glucose meter #1 ea 07/07/25 07/18/25 Rx lancets #100 ea 07/07/25 07/18/25 Rx Allergies Allergy/AdvReac Type Severity Reaction Status Date / Time latex Allergy Unknown rash Verified 06/01/25 10:07 Vital Signs Vital Signs - 24 hr 07/18/25 12:30 07/18/25 16:24 07/18/25 20:00 Temperature 36.2 C L Pulse Rate 85 83 Respiratory Rate 22 H 20 Blood Pressure 146/86 H 100/57 L Pulse Oximetry 96 98 95 Oxygen Delivery Nasal Cannula Oxygen Flow Rate 2 07/18/25 20:00 07/18/25 20:03 07/18/25 23:17 Temperature 36.6 C Pulse Rate 82 79 76 Respiratory Rate 16 Blood Pressure 105/60 Pulse Oximetry 95 Oxygen Delivery Oxygen Flow Rate 07/19/25 00:00 07/19/25 04:00 07/19/25 05:53 Temperature 36.1 C L Pulse Rate 76 86 83 Respiratory Rate 16 Blood Pressure 99/66 L Pulse Oximetry 92 Oxygen Delivery Oxygen Flow Rate 07/19/25 08:00 07/19/25 08:00 Temperature Pulse Rate 77 Respiratory Rate Blood Pressure Pulse Oximetry 94 Oxygen Delivery Nasal Cannula Oxygen Flow Rate 2 Exam Const: General: comfortable and no acute distress Other: Able to lie flat HENMT: Face/Nose/Sinus: Normal nares present and no epistaxis Mouth: Yes moist mucous membranes Eyes: Sclera: sclerae normal Pupils: Equal, round and reactive pupils present Neck: Neck: supple and JVD Carotids: no bruits Resp: Auscultation: crackles bilateral at the base and lung sounds not diminished Other: No chest wall tenderness Cardio: Rate: regular rate Rhythm: regular rhythm Heart sounds: Clicking heart sound present (Click mechanical mitral valve replacement), no gallops, no murmurs and no rubs GI: GI Palp: Yes Soft to palpation and No Tenderness to palpation present (GI) Auscultation: normal bowel sounds Skin: General skin exam: normal color, rashes and/or lesions noted and no erythema Other: Warm Neuro: Cranial nerves: Yes Equal, round and reactive pupils present Speech: normal speech Other: No obvious focal deficit or facial asymmetry Extrem: General: no edema Other: Normal capillary refills Intact distal pulses. Results Labs and Meds 07/19/25 05:42 07/19/25 05:42 Lab results: Cardiac Enzymes 07/19/25 Range/Units 05:42 AST 32 (14-36) U/L Coagulation 07/19/25 Range/Units 05:42 PT 54.6 H D (11.1-14.7) Seconds APTT 102.7 H (22.3-36.8) Seconds CBC 07/19/25 Range/Units 05:42 WBC 9.3 (4.5-10.0) K/mm3 RBC 4.16 L (4.2-5.4) M/mm3 Hgb 11.2 L (12.0-15.0) g/dL Hct 36.9 L (37.0-47.0) % Plt Count 222 (150-375) k/mm3 Lymph # (Auto) 0.82 L (0.9-3.2) K/mm3 [place] # (Auto) 0.8 H (0.1-0.6) K/mm3 Eos # (Auto) 0.3 (0-0.3) K/mm3 Baso # (Auto) 0.1 (0.0-0.1) K/mm3 Comprehensive Metabolic Panel 07/19/25 Range/Units 05:42 Sodium 135 L (137-145) mmol/L Potassium 4.4 (3.4-5.0) mmol/L Chloride 97 L (98-107) mmol/L Carbon Dioxide 33 H (22-30) mmol/L BUN 22 H (7-17) mg/dL Creatinine 1.16 H (0.7-1.0) mg/dL Glucose 103 (65-110) mg/dL Calcium 8.9 (8.4-10.2) mg/dL AST 32 (14-36) U/L ALT 15 (6-35) U/L Alkaline Phosphatase 147 H (38-126) U/L Total Protein 6.9 (6.3-8.2) g/dL Albumin 4.0 (3.5-5.1) g/dL Intake and Output 07/18/25 07/19/25 07/19/25 23:59 07:59 15:59 Intake Total 390 240 Balance 390 240 Intake: Oral 390 240 Other: # Unmeasured Voids 3 1 Patient Weight 07/19/25 23:59 Weight 83.4 kg
[2025-07-19] MEDS: METOPROLOL SUCCINATE EXT REL 100 MG TABCR PO (12:48)
[2025-07-19] MEDS: cefTRIAXone 1 GM in SODIUM CHLORIDE 0.9% IV 50 ML 100 ML IVPB (12:49)
[2025-07-19] MEDS: AZITHROMYCIN IV 500 MG in SODIUM CHLORIDE 0.9% IV 250 ML IVPB (17:01)
[2025-07-19] MEDS: INSULIN GLARGINE (*BKC) 100 UNITS/ML 12 UNITS SUB-Q (20:23)
[2025-07-20] VITALS (13 sets, daily range): BP systolic 104–131; BP diastolic 54–66; PULSE 80–99; RESP 16; TEMP 36.4–36.6; O2SAT 92–97
[2025-07-20 05:41] LABS: Hematocrit 37.4 % (37.0-47.0); Hemoglobin 11.3 g/dL (12.0-15.0); Immature Granulocyte Percent A 0.7 % (0-0.5); Lymphocytes Absolute Auto 0.89 K/mm3 (0.9-3.2); Mean Corpuscular HGB Conc 30.2 g/dl (32-36); Mean Corpuscular Hemoglobin 26.6 pg (26-34); Mean Corpuscular Volume 88.0 fl (80-100); Nucleated Red Blood Cells Absolute Auto 0.000 K/mm3 (0.0-0.012); Nucleated Red Blood Cells Perc 0.0 % (0.0-0.2); Platelet Count Result 235 k/mm3 (150-375); Red Blood Count 4.25 M/mm3 (4.2-5.4); White Blood Count 9.0 K/mm3 (4.5-10.0)
[2025-07-20 06:04] LABS: INR 4.8; Prothrombin Time 43.0 Seconds (11.1-14.7)
[2025-07-20] MEDS: guaiFENesin 12 HR 600 MG TABCR 1200 MG PO ×2 (10:02→21:45)
[2025-07-20] MEDS: EMPAGLIFLOZIN 25 MG TABLET PO (10:02)
[2025-07-20] MEDS: METOPROLOL SUCCINATE EXT REL 100 MG TABCR PO (10:02)
[2025-07-20] MEDS: FUROSEMIDE INJ 40 MG/4 ML VIAL IV PUSH ×2 (10:03→17:48)
[2025-07-20] MEDS: PRAVASTATIN SODIUM 20 MG TABLET PO (10:03)
--- NOTE | 2025-07-20 13:04 | P.CDI_ITS ---
<Statement entered by Jordyn Flowers MD - 07/20/25 17:33> This documentation has been reviewed and approved. Acute hypoxic respiratory failure likely secondary to pneumonia CDI Query Clarification Request ER documented acute hypoxemic respiratory failure, but this diagnosis was not continued by hospitalist Please clarify if acute hypoxemic respiratory failure should be added to problem list in progress note. ER: This is an 80 year old female who presents for evaluation of an elevated INR but she was found to be hypoxic in triage with oxygen saturation 86% on room air. Patient states she was evaluated by her block trader yesterday and she had her INR checked. She states she checked her mychart and it showed that her INR was 4.9. She was concerned about the elevation and if she should take her coumadin. She was not notified about the abnormality by her block trader. She took her 5 mg dose last night. She denies chest pain, shortness of breath, fever, leg swelling, any bleeding. She reports having chronic postnasal drainage and cough but her symptoms have been improving . Clinical Impression: Acute hypoxemic respiratory failure, Pneumonia, Supratherapeutic INR Hospitalist: 1) Supratherapeutic INR: Code(s): R79.1 - Abnormal coagulation profile Status: Acute Assessment and Plan: Patient reports no bleeding. No black or bloody stools. No recent changes in diuretics, Has had weight loss in the last year since covid. Reports her taste changed and appetite has decreased. Lost about 9 pounds in the last 6 months. INR 4.9 on admission --Follow INR --Cardiology consulted (2) Pneumonia: Code(s): J18.9 - Pneumonia, unspecified organism Status: Acute Assessment and Plan: Antibiotics: azithromycin/Rocephin 07/18 Blood cultures x2 pending Guaifenesin Wean oxygen as able May need a walking O2 prior to discharge Also diuresing as noted 07/18 Chest x-ray 1. Bibasilar airspace disease probably pneumonia. 2. Recommend x-ray surveillance until resolution to exclude underlying lesion. (3) CHF (congestive heart failure): Qualifiers: Heart failure type: other Qualified Code(s): I50.9 - Heart failure, unspecified Code(s): I50.9 - Heart failure, unspecified Status: Acute Assessment and Plan: Home lasix 20mg daily s/p 40 of IV Lasix given in the emergency room Echocardiogram pending Follow weight: 83.4kg on admission IV Lasix 40mg BID (4) A-fib: Qualifiers: Atrial fibrillation type: paroxysmal Qualified Code(s): I48.0 - Paroxysmal atrial fibrillation Code(s): I48.91 - Unspecified atrial fibrillation Status: Acute Assessment and Plan: Telemetry Patient had her dose metoprolol increased to 100 On warfarin as noted (5) Anticoagulant long-term use: Code(s): Z79.01 - assistant terminal manager (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) use of anticoagulants Status: Acute Assessment and Plan: Due to mechanical valve, also has afib Patient takes 5 mg on Sunday and 4 mg the rest of the week Cardiology consulted for management Goal INR 2.5-3.5 (6) Type 2 diabetes mellitus: Qualifiers: Diabetes mellitus complication detail: with microalbuminuria Diabetes mellitus complication status: with kidney complications Diabetes mellitus intermediate project manager insulin use: without intermediate project manager use Qualified Code(s): E11.29 - Type 2 diabetes mellitus with other diabetic kidney complication; R80.9 - Proteinuria, unspecified Code(s): E11.9 - Type 2 diabetes mellitus without complications Status: Acute Assessment and Plan: Accu-Cheks a.c. HS Hold home oral diabetic medications SSI (7) Hypertension: Qualifiers: Hypertension type: essential hypertension Qualified Code(s): I10 - Essential (primary) hypertension Code(s): I10 - Essential (primary) hypertension Status: Acute Assessment and Plan: Currently holding lisinopril due to low blood pressures (8) Chronic renal insufficiency, stage III (moderate): Code(s): N18.30 - Chronic kidney disease, stage 3 unspecified Status: Acute Assessment and Plan: Creatinine 1.20>1.16 aggressively diuresing due to hypotension and kidney protection. BP 104/67 BMP in the morning --Resume lisinopril soon Overnight events VSS. On 2L NC, no oxygen at baseline Feeling short of breath with activity. Usually only notices it with longer distances. Recent outpatient appointments sats have been lower, but still within normal limits Reason for hospitalization Admitted with an elevated INR. Warfarin on hold. Following INR. Diuresing. documented 2L NC normallly RA CXR: IMPRESSION: 1. Bibasilar airspace disease probably pneumonia. 2. Recommend x-ray surveillance until resolution to exclude underlying lesion.
--- NOTE | 2025-07-20 13:49 | PM.PNCARD ---
Progress Note: A&P Assessment and Plan (1) CHF (congestive heart failure): Qualifiers: Heart failure type: other Qualified Code(s): I50.9 - Heart failure, unspecified Code(s): I50.9 - Heart failure, unspecified Status: Acute (2) A-fib: Qualifiers: Atrial fibrillation type: paroxysmal Qualified Code(s): I48.0 - Paroxysmal atrial fibrillation Code(s): I48.91 - Unspecified atrial fibrillation Status: Acute (3) Anticoagulant long-term use: Code(s): Z79.01 - public service director (current) use of anticoagulants Status: Acute (4) Cardiomyopathy: Code(s): I42.9 - Cardiomyopathy, unspecified Status: Acute (5) Tricuspid regurgitation: Code(s): I07.1 - Rheumatic tricuspid insufficiency Status: Acute Plan Elevated INR etiology is uncertain could be related to liver congestion Acute on chronic diastolic heart failure Systolic heart failure EF 40-45% Atrial fibrillation Tricuspid regurgitation His status post mechanical mitral valve replacement Diabetes mellitus type 2 Plan Hold warfarin Continue Lasix 40 mg IV b.i.d. Continue Metoprolol 100 mg daily Continue jardiance 25mg daily Lisinopril has been held since admission - start Entresto 12-13mg b.i.d. for HFrEF Outpatient referral to valve clinic at [facility] for mod-severe TR Subjective Date/time seen: 07/20/25 13:49 Interval history: Cardiology follow-up Visit Date of service 07/20/2025: Review of Systems Review of Systems: All systems reviewed & are unremarkable except as noted in HPI and below Exam Const: General: comfortable and no acute distress Other: Able to lie flat HENMT: Face/Nose/Sinus: Normal nares present and no epistaxis Mouth: Yes moist mucous membranes Eyes: Sclera: sclerae normal Pupils: Equal, round and reactive pupils present Neck: Neck: supple and JVD Carotids: no bruits Resp: Auscultation: crackles bilateral at the base and lung sounds not diminished Other: No chest wall tenderness Cardio: Rate: regular rate Rhythm: regular rhythm Heart sounds: Clicking heart sound present (Click mechanical mitral valve replacement), no gallops, no murmurs and no rubs GI: Auscultation: normal bowel sounds Skin: General skin exam: normal color, rashes and/or lesions noted and no erythema Other: Warm Neuro: Cranial nerves: Yes Equal, round and reactive pupils present Speech: normal speech Other: No obvious focal deficit or facial asymmetry Extrem: General: no edema Other: Normal capillary refills Intact distal pulses. Objective Data Vital Signs Vital Signs: Vital Signs - 24 hr 07/19/25 14:00 07/19/25 16:00 07/19/25 20:00 Temperature 36.8 C Pulse Rate 90 84 80 Respiratory Rate 18 Blood Pressure 104/67 Pulse Oximetry 94 Oxygen Delivery Oxygen Flow Rate 07/19/25 21:01 07/20/25 00:00 07/20/25 04:00 Temperature 36.6 C Pulse Rate 94 87 84 Respiratory Rate 15 Blood Pressure 105/57 L Pulse Oximetry 94 Oxygen Delivery Oxygen Flow Rate 07/20/25 06:00 07/20/25 08:00 07/20/25 09:04 Temperature 36.6 C Pulse Rate 84 97 Respiratory Rate 16 Blood Pressure 131/54 L Pulse Oximetry 97 93 Oxygen Delivery Nasal Cannula Oxygen Flow Rate 2 07/20/25 10:02 Temperature Pulse Rate 99 Respiratory Rate Blood Pressure Pulse Oximetry Oxygen Delivery Oxygen Flow Rate Intake/Output Intake/Output: Intake & Output 07/17/25 07/18/25 07/19/25 07/20/25 23:59 23:59 23:59 23:59 Intake Total 390 840 760 Output Total 500 Balance 390 840 260 Meds/Results Medications: Active Medications Generic Name Dose Route Start Last Admin Trade Name Freq PRN Reason Stop Dose Admin Acetaminophen 650 mg 07/18/25 12:26 Acetaminophen 325 Mg Tablet PO Q4H PRN Mild Pain (1-3) or Fever Empagliflozin 25 mg 07/19/25 09:00 07/20/25 10:02 Empagliflozin 25 Mg Tablet PO 25 mg QAM DEUCE Administration Furosemide 40 mg 07/19/25 17:00 07/20/25 10:03 Furosemide Inj 40 Mg/4 Ml Vial IV PUSH 40 mg BID DEUCE Administration Glucagon 1 mg 07/18/25 13:56 Glucagon For Inj 1 Mg Vial IM PRN PRN Hypoglycemia Protocol Glucose 15 gm 07/18/25 13:56 Glucose Oral Gel 15 Gm Of Glucse In 37.5 Gm Tube PO PRN PRN Hypoglycemia Protocol Guaifenesin 1,200 mg 07/18/25 23:05 07/20/25 10:02 Guaifenesin 12 Hr 600 Mg Tabcr PO 1,200 mg Q12HR DEUCE Administration Heparin Sodium (Porcine) 5,000 units 07/19/25 09:00 07/20/25 10:03 Heparin Sodium 5,000 Units/Ml Vial SUB-Q 5,000 units Q12HR DEUCE Administration Ceftriaxone Sodium 1 gm/ 50 mls @ 100 mls/hr 07/19/25 12:00 07/19/25 13:19 Sodium Chloride IVPB Infused Q24H DEUCE Infusion Azithromycin 500 mg/ Sodium 250 mls @ 250 mls/hr 07/19/25 14:00 07/19/25 18:01 Chloride IVPB 07/22/25 14:59 Infused Q24H DEUCE Infusion Dextrose 1,000 mls @ 100 mls/hr 07/18/25 13:56 Dextrose 5% 1,000 Ml IVPB PRN PRN Hypoglycemia Protocol Insulin Aspart 2 - 5 units 07/18/25 17:00 07/20/25 08:00 Insulin Aspart (*Bkc) 100 Units/Ml SUB-Q Not Given TIDWM DEUCE Protocol Insulin Glargine 12 units 07/18/25 21:00 07/19/25 20:23 Insulin Glargine (*Bkc) 100 Units/Ml 0.15 units/kg (12 units) 12 units SUB-Q Administration HS DEUCE Latanoprost 1 drop 07/20/25 21:00 Latanoprost 0.005% Op Soln 2.5 Ml Btl RIGHT EYE HS DEUCE Metoprolol Succinate 100 mg 07/18/25 23:07 07/20/25 10:02 Metoprolol Succinate Ext Rel 100 Mg Tabcr PO 100 mg QAM DEUCE Administration Perflutren Lipid Microsphere 0 ml 07/18/25 23:00 Perflutren Lipid Microspheres 1.5 Ml Vial Diluted To 10 Ml Total Volume IV PUSH 07/21/25 23:01 ONCE PRN adequate visualization Protocol Pravastatin Sodium 20 mg 07/19/25 09:00 07/20/25 10:03 Pravastatin Sodium 20 Mg Tablet PO 20 mg DAILY DEUCE Administration Radiology Results: ITS Impressions Chest X-Ray 07/18/25 11:47 IMPRESSION: 1. Bibasilar airspace disease probably pneumonia. 2. Recommend x-ray surveillance until resolution to exclude underlying lesion. Labs Labs: Laboratory Results - last 24 hr 07/19/25 07/19/2507/19/25 08:08 12:01 16:55 WBC RBC Hgb Hct MCV MCH MCHC RDW Plt Count MPV Immature Gran % (Auto) Neut % (Auto) Lymph % (Auto) [place] % (Auto) Eos % (Auto) Baso % (Auto) Lymph # (Auto) [place] # (Auto) Eos # (Auto) Baso # (Auto) Abs Immat Gran (auto) Absolute Neuts (auto) Absolute Nucleated RBC Nucleated RBC % PT INR POC Capillary Glucose 106 H 179 H 122 H 07/19/25 07/20/25 07/20/25 20:00 05:25 08:22 WBC 9.0 RBC 4.25 Hgb 11.3 L Hct 37.4 MCV 88.0 MCH 26.6 MCHC 30.2 L RDW 17.1 H Plt Count 235 MPV 9.0 Immature Gran % (Auto) 0.7 H Neut % (Auto) 75.5 H Lymph % (Auto) 9.9 L [place] % (Auto) 10.0 H Eos % (Auto) 3.3 Baso % (Auto) 0.6 Lymph # (Auto) 0.89 L [place] # (Auto) 0.9 H Eos # (Auto) 0.3 Baso # (Auto) 0.1 Abs Immat Gran (auto) 0.06 H Absolute Neuts (auto) 6.8 H Absolute Nucleated RBC 0.000 Nucleated RBC % 0.0 PT 43.0 H D INR 4.8 POC Capillary Glucose 210 H 98 07/20/25 11:35 WBC RBC Hgb Hct MCV MCH MCHC RDW Plt Count MPV Immature Gran % (Auto) Neut % (Auto) Lymph % (Auto) [place] % (Auto) Eos % (Auto) Baso % (Auto) Lymph # (Auto) [place] # (Auto) Eos # (Auto) Baso # (Auto) Abs Immat Gran (auto) Absolute Neuts (auto) Absolute Nucleated RBC Nucleated RBC % PT INR POC Capillary Glucose 161 H Quality VTE Prophylaxis VTE prophylaxis: mechanical ordered and pharmacologic ordered
[2025-07-20] MEDS: cefTRIAXone 1 GM in SODIUM CHLORIDE 0.9% IV 50 ML 100 ML IVPB (15:03)
[2025-07-20] MEDS: AZITHROMYCIN IV 500 MG in SODIUM CHLORIDE 0.9% IV 250 ML IVPB (15:03)
--- NOTE | 2025-07-20 17:11 | P.PNIM_ITS ---
Progress Note: A&P Assessment and Plan (1) Supratherapeutic INR: Code(s): R79.1 - Abnormal coagulation profile Status: Acute Assessment and Plan: Patient reports no bleeding. No black or bloody stools. No recent changes in diuretics, Has had weight loss in the last year since covid. Reports her taste changed and appetite has decreased. Lost about 9 pounds in the last 6 months. INR 4.9 on admission --Follow INR --Cardiology consulted (2) Pneumonia: Code(s): J18.9 - Pneumonia, unspecified organism Status: Acute Assessment and Plan: Antibiotics: azithromycin/Rocephin 07/18 Blood cultures x2 pending Guaifenesin Wean oxygen as able May need a walking O2 prior to discharge Also diuresing as noted 07/18 Chest x-ray 1. Bibasilar airspace disease probably pneumonia. 2. Recommend x-ray surveillance until resolution to exclude underlying lesion. (3) CHF (congestive heart failure): Qualifiers: Heart failure type: other Qualified Code(s): I50.9 - Heart failure, unspecified Code(s): I50.9 - Heart failure, unspecified Status: Acute Assessment and Plan: Home lasix 20mg daily s/p 40 of IV Lasix given in the emergency room Echocardiogram pending Follow weight: 83.4kg on admission IV Lasix 40mg BID (4) A-fib: Qualifiers: Atrial fibrillation type: paroxysmal Qualified Code(s): I48.0 - Paroxysmal atrial fibrillation Code(s): I48.91 - Unspecified atrial fibrillation Status: Acute Assessment and Plan: Telemetry Patient had her dose metoprolol increased to 100 On warfarin as noted (5) Anticoagulant long-term use: Code(s): Z79.01 - shelter (current) use of anticoagulants Status: Acute Assessment and Plan: Due to mechanical valve, also has afib Patient takes 5 mg on Sunday and 4 mg the rest of the week Cardiology consulted for management Goal INR 2.5-3.5 (6) Type 2 diabetes mellitus: Qualifiers: Diabetes mellitus vermin exterminator insulin use: without vermin exterminator use Diabetes mellitus complication status: with kidney complications Diabetes mellitus complication detail: with microalbuminuria Qualified Code(s): E11.29 - Type 2 diabetes mellitus with other diabetic kidney complication; R80.9 - Proteinuria, unspecified Code(s): E11.9 - Type 2 diabetes mellitus without complications Status: Acute Assessment and Plan: Bertram PARKER Hold home oral diabetic medications SSI (7) Hypertension: Qualifiers: Hypertension type: essential hypertension Qualified Code(s): I10 - Essential (primary) hypertension Code(s): I10 - Essential (primary) hypertension Status: Acute Assessment and Plan: Currently holding lisinopril due to low blood pressures (8) Chronic renal insufficiency, stage III (moderate): Code(s): N18.30 - Chronic kidney disease, stage 3 unspecified Status: Acute Assessment and Plan: Creatinine 1.20>1.16 aggressively diuresing due to hypotension and kidney protection. BP 104/67 BMP in the morning --Resume lisinopril soon Plan Pending discharge INR to be less than 3.5 Time Spent With Patient Time: 35 minutes Subjective Date/time seen: 07/20/25 17:11 Interval history: Denies any discomfort or pain. Was a former smoker. Exam Narrative: APPEARANCE: No acute distress, nontoxic, resting in bed comfortably EYES: EOMI HEENT: Normocephalic, atraumatic, OMM RESPIRATORY: No respiratory distress Clear to auscultation bilaterally with no rhonchi wheezing or rales. CARDIOVASCULAR: RRR, S1 and S2 without murmurs rubs or gallops. ABDOMINAL: Soft, nontender, nondistended, no rebound or guarding MUSCULOSKELETAl: Moves her extremities spontaneously NEURO: Awake and alert. Following commands, speech normal, no focal deficits SKIN:: Warm, dry. No rashes lesions or abrasions PSYCHIATRIC: Normal affect/mood, Objective Data Vital Signs Vital Signs: Vital Signs - 24 hr 07/19/25 20:00 07/19/25 21:01 07/20/25 00:00 Temperature 36.6 C Pulse Rate 80 94 87 Respiratory Rate 15 Blood Pressure 105/57 L Pulse Oximetry 94 Oxygen Delivery Oxygen Flow Rate 07/20/25 04:00 07/20/25 06:00 07/20/25 08:00 Temperature 36.6 C Pulse Rate 84 84 97 Respiratory Rate 16 Blood Pressure 131/54 L Pulse Oximetry 97 Oxygen Delivery Oxygen Flow Rate 07/20/25 09:04 07/20/25 10:02 07/20/25 10:03 Temperature Pulse Rate 99 Respiratory Rate Blood Pressure Pulse Oximetry 93 94 Oxygen Delivery Nasal Cannula Nasal Cannula Oxygen Flow Rate 2 2 07/20/25 12:00 07/20/25 14:00 Temperature 36.6 C Pulse Rate 80 90 Respiratory Rate 16 Blood Pressure 107/57 L Pulse Oximetry 92 Oxygen Delivery Oxygen Flow Rate Intake/Output Intake/Output: Intake & Output 07/17/25 07/18/25 07/19/25 07/20/25 23:59 23:59 23:59 23:59 Intake Total 694 450 4167 Output Total 700 Balance 390 840 720 Meds/Results Medications: Active Medications Generic Name Dose Route Start Last Admin Trade Name Freq PRN Reason Stop Dose Admin Acetaminophen 650 mg 07/18/25 12:26 Acetaminophen 325 Mg Tablet PO Q4H PRN Mild Pain (1-3) or Fever Empagliflozin 25 mg 07/19/25 09:00 07/20/25 10:02 Empagliflozin 25 Mg Tablet PO 25 mg QAM DEUCE Administration Furosemide 40 mg 07/19/25 17:00 07/20/25 10:03 Furosemide Inj 40 Mg/4 Ml Vial IV PUSH 40 mg BID DEUCE Administration Glucagon 1 mg 07/18/25 13:56 Glucagon For Inj 1 Mg Vial IM PRN PRN Hypoglycemia Protocol Glucose 15 gm 07/18/25 13:56 Glucose Oral Gel 15 Gm Of Glucse In 37.5 Gm Tube PO PRN PRN Hypoglycemia Protocol Guaifenesin 1,200 mg 07/18/25 23:05 07/20/25 10:02 Guaifenesin 12 Hr 600 Mg Tabcr PO 1,200 mg Q12HR DEUCE Administration Heparin Sodium (Porcine) 5,000 units 07/19/25 09:00 07/20/25 10:03 Heparin Sodium 5,000 Units/Ml Vial SUB-Q 5,000 units Q12HR DEUCE Administration Ceftriaxone Sodium 1 gm/ 50 mls @ 100 mls/hr 07/19/25 12:00 07/20/25 15:33 Sodium Chloride IVPB Infused Q24H DEUCE Infusion Azithromycin 500 mg/ Sodium 250 mls @ 250 mls/hr 07/19/25 14:00 07/20/25 16:03 Chloride IVPB 07/22/25 14:59 Infused Q24H DEUCE Infusion Dextrose 1,000 mls @ 100 mls/hr 07/18/25 13:56 Dextrose 5% 1,000 Ml IVPB PRN PRN Hypoglycemia Protocol Insulin Aspart 2 - 5 units 07/18/25 17:00 07/20/25 16:44 Insulin Aspart (*Bkc) 100 Units/Ml SUB-Q Not Given TIDWM DEUCE Protocol Insulin Glargine 12 units 07/18/25 21:00 07/19/25 20:23 Insulin Glargine (*Bkc) 100 Units/Ml 0.15 units/kg (12 units) 12 units SUB-Q Administration HS DEUCE Latanoprost 1 drop 07/20/25 21:00 Latanoprost 0.005% Op Soln 2.5 Ml Btl RIGHT EYE HS DEUCE Metoprolol Succinate 100 mg 07/18/25 23:07 07/20/25 10:02 Metoprolol Succinate Ext Rel 100 Mg Tabcr PO 100 mg QAM DEUCE Administration Perflutren Lipid Microsphere 0 ml 07/18/25 23:00 Perflutren Lipid Microspheres 1.5 Ml Vial Diluted To 10 Ml Total Volume IV PUSH 07/21/25 23:01 ONCE PRN adequate visualization Protocol Pravastatin Sodium 20 mg 07/19/25 09:00 07/20/25 10:03 Pravastatin Sodium 20 Mg Tablet PO 20 mg DAILY DEUCE Administration Radiology Results: ITS Impressions Chest X-Ray 07/18/25 11:47 IMPRESSION: 1. Bibasilar airspace disease probably pneumonia. 2. Recommend x-ray surveillance until resolution to exclude underlying lesion. Labs Labs: Laboratory Results - last 24 hr 07/19/25 07/20/25 07/20/25 20:00 05:25 08:22 WBC 9.0 RBC 4.25 Hgb 11.3 L Hct 37.4 MCV 88.0 MCH 26.6 MCHC 30.2 L RDW 17.1 H Plt Count 235 MPV 9.0 Immature Gran % (Auto) 0.7 H Neut % (Auto) 75.5 H Lymph % (Auto) 9.9 L [place] % (Auto) 10.0 H Eos % (Auto) 3.3 Baso % (Auto) 0.6 Lymph # (Auto) 0.89 L [place] # (Auto) 0.9 H Eos # (Auto) 0.3 Baso # (Auto) 0.1 Abs Immat Gran (auto) 0.06 H Absolute Neuts (auto) 6.8 H Absolute Nucleated RBC 0.000 Nucleated RBC % 0.0 PT 43.0 H D INR 4.8 POC Capillary Glucose 210 H 98 07/20/25 07/20/25 11:35 16:36 WBC RBC Hgb Hct MCV MCH MCHC RDW Plt Count MPV Immature Gran % (Auto) Neut % (Auto) Lymph % (Auto) [place] % (Auto) Eos % (Auto) Baso % (Auto) Lymph # (Auto) [place] # (Auto) Eos # (Auto) Baso # (Auto) Abs Immat Gran (auto) Absolute Neuts (auto) Absolute Nucleated RBC Nucleated RBC % PT INR POC Capillary Glucose 161 H 143 H Quality VTE Prophylaxis VTE prophylaxis: mechanical ordered and pharmacologic ordered
[2025-07-20] MEDS: LATANOPROST 0.005% OP SOLN 2.5 ML BTL 1 DROP RIGHT EYE (21:46)
[2025-07-20] MEDS: INSULIN GLARGINE (*BKC) 100 UNITS/ML 12 UNITS SUB-Q (21:46)
--- NOTE | 2025-07-20 23:01 | ECHO_ITS ---
Patient Info Name: Laure Kevin Age: 80 years : 1945 Gender: Female Ht: 67 in Wt: 180 lbs BSA: 1.98 m2 HR: 84 bpm BP: 105 / 57 mmHg Technical Quality: Good Exam Date: 07/20/2025 10:10 AM Patient Status: I Admit Date: 07/18/2025 Exam Type: CA echo doppler color flow Complete two-dimensional, color flow and Doppler transthoracic echocardiogram is performed. Staff Referring Physician: Carolina Grigsby MD Service Desk Specialist: Zaid Forrest III Attending Provider: Barbara Fisher Summary 1. Complete two-dimensional, color flow and Doppler transthoracic echocardiogram is performed. 2. Left ventricular systolic function is mildly reduced, estimated at 40-45. 3. The left ventricular diastolic function is abnormal. 4. Right ventricular chamber dimension is severely enlarged. 5. Right ventricular systolic function is reduced. 6. Left atrial chamber dimension is severely enlarged. 7. Right atrial chamber dimension is severely enlarged. 8. There is mild aortic valve regurgitation. 9. The not well visualized prosthetic mitral valve. Mechanical valve. 10. There is no stenosis of the not well visualized prosthetic mitral valve. mean gradient 3mmHg. 11. There is trace regurgitation of the not well visualized prosthetic mitral valve. 12. There is moderate to severe tricuspid valve regurgitation. 13. Severe pulmonary hypertension, estimated pulmonary arterial systolic pressure is 61 mmHg. 14. There is mild pulmonic regurgitation. Left Ventricle Left ventricular chamber dimension is normal. Left ventricular systolic function is mildly reduced, estimated at 40-45. There is no increased left ventricular wall thickness. Left ventricular septal wall motion is normal. The left ventricular diastolic function is abnormal. Right Ventricle Right ventricular chamber dimension is severely enlarged. Right ventricular systolic function is reduced. Left Atria Left atrial chamber dimension is severely enlarged. Right Atria Right atrial chamber dimension is severely enlarged. Aortic Valve The aortic valve is trileaflet. There is moderate aortic valve sclerosis. There is no aortic valve stenosis. There is mild aortic valve regurgitation. There is mild aortic valve calcification. Pulmonic Valve The pulmonic valve is normal. There is no pulmonic valve stenosis. There is mild pulmonic regurgitation. Mitral Valve The not well visualized prosthetic mitral valve. Mechanical valve. There is no stenosis of the not well visualized prosthetic mitral valve. mean gradient 3mmHg. There is trace regurgitation of the not well visualized prosthetic mitral valve. Tricuspid Valve The tricuspid valve leaflets are normal. There is no significant tricuspid valve stenosis. There is moderate to severe tricuspid valve regurgitation. Severe pulmonary hypertension, estimated pulmonary arterial systolic pressure is 61 mmHg. Pericardium/Pleural The pericardium appears normal. There is no pericardial effusion. Inferior Vena Cava Normal inferior vena cava with >50% collapse upon inspiration consistent with elevated right atrial pressure, 15 mmHg. Aorta The aortic root size at the sinus of Valsalva is normal. The prox ascending aorta size is normal. Left Ventricular Outflow Tract Name Value Normal LVOT 2D LVOT Diameter 2.0 cm LVOT Doppler LVOT Peak Velocity 98 cm/s LVOT Peak Gradient 4 mmHg LVOT Mean Gradient 2 mmHg LVOT VTI 17 cm LVOT VTI/AV VTI Ratio 0.5 LVOT Stroke Volume 51 ml LVOT CO 4.0 l/min LVOT CI 2.0 l/min/m2 Pulmonic Valve Name Value Normal PV Doppler PV Peak Velocity 119 cm/s PV Peak Gradient 6 mmHg PV Mean Gradient 2 mmHg PV Regurgitation Doppler IL Peak End Diastolic Velocity 163 cm/s Mitral Valve Name Value Normal MV Doppler MV Peak Gradient 12 mmHg MV Mean Gradient 3 mmHg MV Area (Cont Eq VTI) 1.3 cm2 MV Diastolic Function MV E Peak Velocity 174 cm/s MV A Peak Velocity 1 cm/s MV E/A 188.5 MV Decel Time (PW) 250 ms MV Annular TDI MV E/e' (Septal) 32.2 MV E/e' (Lateral) 18.5 MV E/e' (Average) 25.4 Tricuspid Valve Name Value Normal TV Regurgitation Doppler TR Peak Velocity 339 cm/s TR Peak Gradient 46 mmHg Estimated PAP/RSVP RA Pressure 15 mmHg <=5 PA Systolic Pressure 61 mmHg <36 RV Systolic Pressure 61 mmHg <36 TV Annular TDI TV Lateral Patricia s' Velocity 10.9 cm/s >=9.5 Aortic Valve Name Value Normal AV Doppler AV Peak Velocity 177 cm/s AV Peak Gradient 13 mmHg AV Mean Gradient 6 mmHg AV VTI 36 cm AV Area (Cont Eq VTI) 1.4 cm2 >=3.0 AV Area (Cont Eq Serafin) 1.7 cm2 AV DI (Serafin) 0.55 AV Regurgitation 2D LVOT Area 3.0 cm2 Ventricles Name Value Normal LV Dimensions 2D/MM IVS Diastolic Thickness (2D) 0.7 cm 0.6-1.0 LVID Diastole (2D) 4.8 cm 3.8-5.2 LVIW Diastolic Thickness (2D) 1.0 cm 0.6-0.9 LVID Systole (2D) 3.7 cm 2.2-3.5 LVOT Diameter 2.0 cm LV Mass (2D Cubed) 142.19 g 67.00-162.00 LV Mass Index (2D Cubed) 72 g/m2 43-95 Relative Wall Thickness (2D) 0.43 <=0.42 LV Fractional Shortening/Ejection Fraction 2D/MM LV Fractional Shortening (2D) 22 % 27-45 LV EF (2D [place]) 44 % LV Diastolic Volume (4C MOD) 47 ml LV EF (4C MOD) 40 % LV Diastolic Length (4C) 7.5 cm LV Systolic Length (4C) 6.6 cm LV Stroke Volume (4C MOD) 19 ml Atria Name Value Normal RA Dimensions RA Systolic Major [place] Length (4C) 7.2 cm 2.2-2.8 RA Area (4C) 28.3 cm2 <=18.0 Report Signatures
[2025-07-21] VITALS (8 sets, daily range): BP systolic 102–110; BP diastolic 59–65; PULSE 68–87; RESP 16–20; TEMP 36.3–36.6; O2SAT 93–95
[2025-07-21 06:00] LABS: Hematocrit 38.6 % (37.0-47.0); Hemoglobin 11.7 g/dL (12.0-15.0); Immature Granulocyte Percent A 0.5 % (0-0.5); Lymphocytes Absolute Auto 0.92 K/mm3 (0.9-3.2); Mean Corpuscular HGB Conc 30.3 g/dl (32-36); Mean Corpuscular Hemoglobin 26.5 pg (26-34); Mean Corpuscular Volume 87.5 fl (80-100); Nucleated Red Blood Cells Absolute Auto 0.000 K/mm3 (0.0-0.012); Nucleated Red Blood Cells Perc 0.0 % (0.0-0.2); Platelet Count Result 241 k/mm3 (150-375); Red Blood Count 4.41 M/mm3 (4.2-5.4); White Blood Count 8.2 K/mm3 (4.5-10.0)
[2025-07-21 06:12] LABS: INR 2.5; Prothrombin Time 26.1 Seconds (11.1-14.7)
[2025-07-21] MEDS: METOPROLOL SUCCINATE EXT REL 100 MG TABCR PO (09:07)
[2025-07-21] MEDS: EMPAGLIFLOZIN 25 MG TABLET PO (09:07)
[2025-07-21] MEDS: guaiFENesin 12 HR 600 MG TABCR 1200 MG PO ×2 (09:07→21:29)
[2025-07-21] MEDS: FUROSEMIDE INJ 40 MG/4 ML VIAL IV PUSH ×2 (09:07→17:53)
[2025-07-21] MEDS: PRAVASTATIN SODIUM 20 MG TABLET PO (09:08)
--- NOTE | 2025-07-21 12:28 | P.PNCA_ITS ---
Progress Note: A&P Assessment and Plan (1) CHF (congestive heart failure): Qualifiers: Heart failure type: other Qualified Code(s): I50.9 - Heart failure, unspecified Code(s): I50.9 - Heart failure, unspecified Status: Acute (2) A-fib: Qualifiers: Atrial fibrillation type: paroxysmal Qualified Code(s): I48.0 - Paroxysmal atrial fibrillation Code(s): I48.91 - Unspecified atrial fibrillation Status: Acute (3) Anticoagulant long-term use: Code(s): Z79.01 - director long term care (current) use of anticoagulants Status: Acute (4) Cardiomyopathy: Code(s): I42.9 - Cardiomyopathy, unspecified Status: Acute (5) Tricuspid regurgitation: Code(s): I07.1 - Rheumatic tricuspid insufficiency Status: Acute Plan Elevated INR etiology is uncertain could be related to liver congestion Acute on chronic diastolic heart failure Systolic heart failure EF 40-45% Atrial fibrillation Tricuspid regurgitation His status post mechanical mitral valve replacement Diabetes mellitus type 2 Plan INR 2.5 today - resume warfarin Shift lasix to oral - 40mg p.o. daily Continue Metoprolol 100 mg daily Continue jardiance 25mg daily Lisinopril has been held since admission - start Entresto 12-13mg b.i.d. for HFrEF when BP allows Will need an ischemic evaluation which can be done as an outpatient Outpatient referral to valve clinic at [place] for mod-severe TR Subjective Date/time seen: 07/21/25 12:28 Interval history: Cardiology follow-up Visit Date of service 07/21/2025: Feels better today. States she does not feel short of breath. No swelling. Abdomen is soft and no longer distended Review of Systems Review of Systems: All systems reviewed & are unremarkable except as noted in HPI and below Exam Const: General: comfortable and no acute distress Other: Able to lie flat HENMT: Face/Nose/Sinus: Normal nares present and no epistaxis Mouth: Yes moist mucous membranes Eyes: Sclera: sclerae normal Pupils: Equal, round and reactive pupils present Neck: Neck: supple and no JVD Carotids: no bruits Resp: Effort & Inspection: normal respiratory effort Auscultation: clear to auscultation bilaterally Other: No chest wall tenderness Cardio: Rate: regular rate Rhythm: regular rhythm Heart sounds: Clicking heart sound present (Click mechanical mitral valve replacement), no gallops, no murmurs and no rubs GI: Auscultation: normal bowel sounds Skin: General skin exam: normal color, rashes and/or lesions noted and no erythema Other: Warm Neuro: Cranial nerves: Yes Equal, round and reactive pupils present Speech: normal speech Other: No obvious focal deficit or facial asymmetry Extrem: General: no edema Other: Normal capillary refills Intact distal pulses. Objective Data Vital Signs Vital Signs: Vital Signs - 24 hr 07/20/25 14:00 07/20/25 16:00 07/20/25 20:00 Temperature 36.6 C Pulse Rate 90 92 84 Respiratory Rate 16 Blood Pressure 107/57 L Pulse Oximetry 92 Oxygen Delivery Oxygen Flow Rate 07/20/25 21:29 07/20/25 21:30 07/21/25 00:00 Temperature 36.4 C L Pulse Rate 80 80 75 Respiratory Rate 16 Blood Pressure 104/66 Pulse Oximetry 93 93 Oxygen Delivery Nasal Cannula Oxygen Flow Rate 2 07/21/25 06:00 07/21/25 08:00 Temperature 36.3 C L Pulse Rate 80 77 Respiratory Rate 20 Blood Pressure 102/65 Pulse Oximetry 93 Oxygen Delivery Oxygen Flow Rate Intake/Output Intake/Output: Intake & Output 07/18/25 07/19/25 07/20/25 07/21/25 23:59 23:59 23:59 23:59 Intake Total 893 746 5940 840 Output Total 700 1800 Balance 390 840 960 -960 Meds/Results Medications: Active Medications Generic Name Dose Route Start Last Admin Trade Name Freq PRN Reason Stop Dose Admin Acetaminophen 650 mg 07/18/25 12:26 Acetaminophen 325 Mg Tablet PO Q4H PRN Mild Pain (1-3) or Fever Empagliflozin 25 mg 07/19/25 09:00 07/21/25 09:07 Empagliflozin 25 Mg Tablet PO 25 mg QAM DEUCE Administration Furosemide 40 mg 07/19/25 17:00 07/21/25 09:07 Furosemide Inj 40 Mg/4 Ml Vial IV PUSH 40 mg BID DEUCE Administration Glucagon 1 mg 07/18/25 13:56 Glucagon For Inj 1 Mg Vial IM PRN PRN Hypoglycemia Protocol Glucose 15 gm 07/18/25 13:56 Glucose Oral Gel 15 Gm Of Glucse In 37.5 Gm Tube PO PRN PRN Hypoglycemia Protocol Guaifenesin 1,200 mg 07/18/25 23:05 07/21/25 09:07 Guaifenesin 12 Hr 600 Mg Tabcr PO 1,200 mg Q12HR DEUCE Administration Heparin Sodium (Porcine) 5,000 units 07/19/25 09:00 07/21/25 09:07 Heparin Sodium 5,000 Units/Ml Vial SUB-Q 5,000 units Q12HR DEUCE Administration Ceftriaxone Sodium 1 gm/ 50 mls @ 100 mls/hr 07/19/25 12:00 07/20/25 15:33 Sodium Chloride IVPB Infused Q24H DEUCE Infusion Azithromycin 500 mg/ Sodium 250 mls @ 250 mls/hr 07/19/25 14:00 07/20/25 16:03 Chloride IVPB 07/22/25 14:59 Infused Q24H DEUCE Infusion Dextrose 1,000 mls @ 100 mls/hr 07/18/25 13:56 Dextrose 5% 1,000 Ml IVPB PRN PRN Hypoglycemia Protocol Insulin Aspart 2 - 5 units 07/18/25 17:00 07/21/25 08:50 Insulin Aspart (*Bkc) 100 Units/Ml SUB-Q Not Given TIDWM [facility] Protocol Insulin Glargine 12 units 07/18/25 21:00 07/20/25 21:46 Insulin Glargine (*Bkc) 100 Units/Ml 0.15 units/kg (12 units) 12 units SUB-Q Administration HS [facility] Latanoprost 1 drop 07/20/25 21:00 07/20/25 21:46 Latanoprost 0.005% Op Soln 2.5 Ml Btl RIGHT EYE 1 drop HS DEUCE Administration Metoprolol Succinate 100 mg 07/18/25 23:07 07/21/25 09:07 Metoprolol Succinate Ext Rel 100 Mg Tabcr PO 100 mg QAM DEUCE Administration Perflutren Lipid Microsphere 0 ml 07/18/25 23:00 Perflutren Lipid Microspheres 1.5 Ml Vial Diluted To 10 Ml Total Volume IV PUSH 07/21/25 23:01 ONCE PRN adequate visualization Protocol Pravastatin Sodium 20 mg 07/19/25 09:00 07/21/25 09:08 Pravastatin Sodium 20 Mg Tablet PO 20 mg DAILY DEUCE Administration Radiology Results: ITS Impressions Chest X-Ray 07/18/25 11:47 IMPRESSION: 1. Bibasilar airspace disease probably pneumonia. 2. Recommend x-ray surveillance until resolution to exclude underlying lesion. Labs Labs: Laboratory Results - last 24 hr 07/20/25 07/20/25 07/21/25 16:36 21:24 05:36 WBC 8.2 RBC 4.41 Hgb 11.7 L Hct 38.6 MCV 87.5 MCH 26.5 MCHC 30.3 L RDW 16.7 H Plt Count 241 MPV 9.0 Immature Gran % (Auto) 0.5 Neut % (Auto) 74.0 H Lymph % (Auto) 11.2 L [place] % (Auto) 10.3 H Eos % (Auto) 3.2 Baso % (Auto) 0.8 Lymph # (Auto) 0.92 [place] # (Auto) 0.9 H Eos # (Auto) 0.3 Baso # (Auto) 0.1 Abs Immat Gran (auto) 0.04 H Absolute Neuts (auto) 6.1 Absolute Nucleated RBC 0.000 Nucleated RBC % 0.0 PT 26.1 H D INR 2.5 POC Capillary Glucose 143 H 186 H 07/21/25 07/21/25 08:14 11:28 WBC RBC Hgb Hct MCV MCH MCHC RDW Plt Count MPV Immature Gran % (Auto) Neut % (Auto) Lymph % (Auto) [place] % (Auto) Eos % (Auto) Baso % (Auto) Lymph # (Auto) [place] # (Auto) Eos # (Auto) Baso # (Auto) Abs Immat Gran (auto) Absolute Neuts (auto) Absolute Nucleated RBC Nucleated RBC % PT INR POC Capillary Glucose 121 H 229 H Quality VTE Prophylaxis VTE prophylaxis: mechanical ordered and pharmacologic ordered
[2025-07-21] MEDS: cefTRIAXone 1 GM in SODIUM CHLORIDE 0.9% IV 50 ML 100 ML IVPB (12:56)
[2025-07-21] MEDS: INSULIN ASPART (*BKC) 100 UNITS/ML SUB-Q (12:57)
--- NOTE | 2025-07-21 14:37 | PC.NURSE ---
Provider notified Cardiology requests Coumadin to be restarted per Hospitalist.
[2025-07-21] MEDS: AZITHROMYCIN IV 500 MG in SODIUM CHLORIDE 0.9% IV 250 ML IVPB (15:53)
--- NOTE | 2025-07-21 17:17 | P.PNIM_ITS ---
Progress Note: A&P Assessment and Plan (1) Supratherapeutic INR: Code(s): R79.1 - Abnormal coagulation profile Status: Acute Assessment and Plan: Patient reports no bleeding. No black or bloody stools. No recent changes in diuretics, Has had weight loss in the last year since covid. Reports her taste changed and appetite has decreased. Lost about 9 pounds in the last 6 months. INR 4.9 on admission --Follow INR --Cardiology consulted (2) Pneumonia: Code(s): J18.9 - Pneumonia, unspecified organism Status: Acute Assessment and Plan: Antibiotics: azithromycin/Rocephin 07/18 Blood cultures x2 pending Guaifenesin Wean oxygen as able May need a walking O2 prior to discharge Also diuresing as noted 07/18 Chest x-ray 1. Bibasilar airspace disease probably pneumonia. 2. Recommend x-ray surveillance until resolution to exclude underlying lesion. (3) CHF (congestive heart failure): Qualifiers: Heart failure type: other Qualified Code(s): I50.9 - Heart failure, unspecified Code(s): I50.9 - Heart failure, unspecified Status: Acute Assessment and Plan: Home lasix 20mg daily s/p 40 of IV Lasix given in the emergency room Echocardiogram pending Follow weight: 83.4kg on admission IV Lasix 40mg BID home oxygen eval (4) A-fib: Qualifiers: Atrial fibrillation type: paroxysmal Qualified Code(s): I48.0 - Paroxysmal atrial fibrillation Code(s): I48.91 - Unspecified atrial fibrillation Status: Acute Assessment and Plan: Telemetry Patient had her dose metoprolol increased to 100 restart warfarin at reduced dose (5) Anticoagulant long-term use: Code(s): 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 Status: Acute Assessment and Plan: Due to mechanical valve, also has afib Patient takes 5 mg on Sunday and 4 mg the rest of the week Cardiology consulted for management Goal INR 2.5-3.5 INR 2.5 today (6) Type 2 diabetes mellitus: Qualifiers: 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 insulin use: without long wall shear operator use Diabetes mellitus complication status: with kidney complications Diabetes mellitus complication detail: with microalbuminuria Qualified Code(s): E11.29 - Type 2 diabetes mellitus with other diabetic kidney complication; R80.9 - Proteinuria, unspecified Code(s): E11.9 - Type 2 diabetes mellitus without complications Status: Acute Assessment and Plan: Bertram PARKER Hold home oral diabetic medications SSI (7) Hypertension: Qualifiers: Hypertension type: essential hypertension Qualified Code(s): I10 - Essential (primary) hypertension Code(s): I10 - Essential (primary) hypertension Status: Acute Assessment and Plan: Currently holding lisinopril due to low blood pressures (8) Chronic renal insufficiency, stage III (moderate): Code(s): N18.30 - Chronic kidney disease, stage 3 unspecified Status: Acute Assessment and Plan: Creatinine 1.20>1.16 aggressively diuresing due to hypotension and kidney protection. BP 104/67 BMP in the morning --Resume lisinopril soon Plan awaiting home o2 eval prior to discharge Subjective Date/time seen: 07/21/25 17:17 Interval history: COmfortable at bedside will restart Warfarin today at 10% less than original dose Review of Systems Review of Systems: 12 systems were reviewed and are negativ e except for as per HPI. Exam Narrative: APPEARANCE: No acute distress, nontoxic, resting in bed comfortably EYES: EOMI HEENT: Normocephalic, atraumatic, OMM RESPIRATORY: No respiratory distress Clear to auscultation bilaterally with no rhonchi wheezing or rales. CARDIOVASCULAR: RRR, S1 and S2 without murmurs rubs or gallops. ABDOMINAL: Soft, nontender, nondistended, no rebound or guarding MUSCULOSKELETAl: Moves her extremities spontaneously NEURO: Awake and alert. Following commands, speech normal, no focal deficits SKIN:: Warm, dry. No rashes lesions or abrasions PSYCHIATRIC: Normal affect/mood, Objective Data Vital Signs Vital Signs: Vital Signs - 24 hr 07/20/25 20:00 07/20/25 21:29 07/20/25 21:30 Temperature 97.5 F L Pulse Rate 84 80 80 Respiratory Rate 16 Blood Pressure 104/66 Pulse Oximetry 93 93 Oxygen Delivery Nasal Cannula Oxygen Flow Rate 2 07/21/25 00:00 07/21/25 06:00 07/21/25 08:00 Temperature 97.4 F L Pulse Rate 75 80 77 Respiratory Rate 20 Blood Pressure 102/65 Pulse Oximetry 93 Oxygen Delivery Oxygen Flow Rate 07/21/25 08:00 07/21/25 12:00 07/21/25 14:00 Temperature 97.5 F L Pulse Rate 68 76 Respiratory Rate 18 Blood Pressure 110/59 L Pulse Oximetry 95 95 Oxygen Delivery Nasal Cannula Oxygen Flow Rate 2 Intake/Output Intake/Output: Intake & Output 07/18/25 07/19/25 07/20/25 07/21/25 23:59 23:59 23:59 23:59 Intake Total 069 171 2612 1630 Output Total 700 2400 Balance 390 840 960 -770 Meds/Results Medications: Active Medications Generic Name Dose Route Start Last Admin Trade Name Freq PRN Reason Stop Dose Admin Acetaminophen 650 mg 07/18/25 12:26 Acetaminophen 325 Mg Tablet PO Q4H PRN Mild Pain (1-3) or Fever Empagliflozin 25 mg 07/19/25 09:00 07/21/25 09:07 Empagliflozin 25 Mg Tablet PO 25 mg QAM DEUCE Administration Furosemide 40 mg 07/19/25 17:00 07/21/25 09:07 Furosemide Inj 40 Mg/4 Ml Vial IV PUSH 40 mg BID DEUCE Administration Glucagon 1 mg 07/18/25 13:56 Glucagon For Inj 1 Mg Vial IM PRN PRN Hypoglycemia Protocol Glucose 15 gm 07/18/25 13:56 Glucose Oral Gel 15 Gm Of Glucse In 37.5 Gm Tube PO PRN PRN Hypoglycemia Protocol Guaifenesin 1,200 mg 07/18/25 23:05 07/21/25 09:07 Guaifenesin 12 Hr 600 Mg Tabcr PO 1,200 mg Q12HR DEUCE Administration Heparin Sodium (Porcine) 5,000 units 07/19/25 09:00 07/21/25 09:07 Heparin Sodium 5,000 Units/Ml Vial SUB-Q 5,000 units Q12HR DEUCE Administration Ceftriaxone Sodium 1 gm/ 50 mls @ 100 mls/hr 07/19/25 12:00 07/21/25 12:56 Sodium Chloride IVPB 100 mls/hr Q24H DEUCE Administration Azithromycin 500 mg/ Sodium 250 mls @ 250 mls/hr 07/19/25 14:00 07/21/25 15:53 Chloride IVPB 07/22/25 14:59 250 mls/hr Q24H DEUCE Administration Dextrose 1,000 mls @ 100 mls/hr 07/18/25 13:56 Dextrose 5% 1,000 Ml IVPB PRN PRN Hypoglycemia Protocol Insulin Aspart 2 - 5 units 07/18/25 17:00 07/21/25 16:48 Insulin Aspart (*Bkc) 100 Units/Ml SUB-Q Not Given TIDWM DEUCE Protocol Insulin Glargine 12 units 07/18/25 21:00 07/20/25 21:46 Insulin Glargine (*Bkc) 100 Units/Ml 0.15 units/kg (12 units) 12 units SUB-Q Administration HS DEUCE Latanoprost 1 drop 07/20/25 21:00 07/20/25 21:46 Latanoprost 0.005% Op Soln 2.5 Ml Btl RIGHT EYE 1 drop HS DEUCE Administration Metoprolol Succinate 100 mg 07/18/25 23:07 07/21/25 09:07 Metoprolol Succinate Ext Rel 100 Mg Tabcr PO 100 mg QAM DEUCE Administration Perflutren Lipid Microsphere 0 ml 07/18/25 23:00 Perflutren Lipid Microspheres 1.5 Ml Vial Diluted To 10 Ml Total Volume IV PUSH 07/21/25 23:01 ONCE PRN adequate visualization Protocol Pravastatin Sodium 20 mg 07/19/25 09:00 07/21/25 09:08 Pravastatin Sodium 20 Mg Tablet PO 20 mg DAILY DEUCE Administration Radiology Results: ITS Impressions Chest X-Ray 07/18/25 11:47 IMPRESSION: 1. Bibasilar airspace disease probably pneumonia. 2. Recommend x-ray surveillance until resolution to exclude underlying lesion. Labs Labs: Laboratory Results - last 24 hr 07/20/25 07/21/25 07/21/25 21:24 05:36 08:14 WBC 8.2 RBC 4.41 Hgb 11.7 L Hct 38.6 MCV 87.5 MCH 26.5 MCHC 30.3 L RDW 16.7 H Plt Count 241 MPV 9.0 Immature Gran % (Auto) 0.5 Neut % (Auto) 74.0 H Lymph % (Auto) 11.2 L [place] % (Auto) 10.3 H Eos % (Auto) 3.2 Baso % (Auto) 0.8 Lymph # (Auto) 0.92 [place] # (Auto) 0.9 H Eos # (Auto) 0.3 Baso # (Auto) 0.1 Abs Immat Gran (auto) 0.04 H Absolute Neuts (auto) 6.1 Absolute Nucleated RBC 0.000 Nucleated RBC % 0.0 PT 26.1 H D INR 2.5 POC Capillary Glucose 186 H 121 H 07/21/25 07/21/25 11:28 16:34 WBC RBC Hgb Hct MCV MCH MCHC RDW Plt Count MPV Immature Gran % (Auto) Neut % (Auto) Lymph % (Auto) [place] % (Auto) Eos % (Auto) Baso % (Auto) Lymph # (Auto) [place] # (Auto) Eos # (Auto) Baso # (Auto) Abs Immat Gran (auto) Absolute Neuts (auto) Absolute Nucleated RBC Nucleated RBC % PT INR POC Capillary Glucose 229 H 124 H Quality VTE Prophylaxis VTE prophylaxis: mechanical ordered and pharmacologic ordered
[2025-07-21] MEDS: WARFARIN (*PBKC) 4 MG TABLET PO (17:53)
--- NOTE | 2025-07-21 21:27 | PC.NURSE ---
Per Grecia Torres, Heparin Sub Q discontinued, Coumadin PO has been restarted as of 07/21/2025
[2025-07-21] MEDS: INSULIN GLARGINE (*BKC) 100 UNITS/ML 12 UNITS SUB-Q (21:29)
[2025-07-21] MEDS: LATANOPROST 0.005% OP SOLN 2.5 ML BTL 1 DROP RIGHT EYE (22:23)
[2025-07-22] VITALS (16 sets, daily range): BP systolic 102–106; BP diastolic 54–70; PULSE 66–112; RESP 16–19; TEMP 36.6–36.8; O2SAT 86–96
[2025-07-22 05:43] LABS: Hematocrit 37.4 % (37.0-47.0); Hemoglobin 11.3 g/dL (12.0-15.0); Immature Granulocyte Percent A 0.8 % (0-0.5); Lymphocytes Absolute Auto 0.79 K/mm3 (0.9-3.2); Mean Corpuscular HGB Conc 30.2 g/dl (32-36); Mean Corpuscular Hemoglobin 26.4 pg (26-34); Mean Corpuscular Volume 87.4 fl (80-100); Nucleated Red Blood Cells Absolute Auto 0.000 K/mm3 (0.0-0.012); Nucleated Red Blood Cells Perc 0.0 % (0.0-0.2); Platelet Count Result 240 k/mm3 (150-375); Red Blood Count 4.28 M/mm3 (4.2-5.4); White Blood Count 8.7 K/mm3 (4.5-10.0)
[2025-07-22 05:53] LABS: Alanine Aminotransferase 16 U/L (6-35); Albumin Level 3.8 g/dL (3.5-5.1); Alkaline Phosphatase 170 U/L (38-126); Anion Gap 2 mmol/L (4-12); Aspartate Amino Transferase 31 U/L (14-36); Bilirubin,Total 0.9 mg/dL (0.2-1.3); Blood Urea Nitrogen 27 mg/dL (7-17); Calcium 9.1 mg/dL (8.4-10.2); Carbon Dioxide 37 mmol/L (22-30); Chloride 94 mmol/L (98-107); Estimated CRCL calculation 37 ml/min; Estimated Glomerular Filt Rate 44; Glucose 116 mg/dL (65-110); Magnesium 2.2 mg/dL (1.6-2.3); Potassium 3.6 mmol/L (3.4-5.0); Sodium 133 mmol/L (137-145); Total Protein 6.7 g/dL (6.3-8.2)
[2025-07-22 05:56] LABS: INR 2.2; Prothrombin Time 23.7 Seconds (11.1-14.7)
[2025-07-22] MEDS: PRAVASTATIN SODIUM 20 MG TABLET PO (09:53)
[2025-07-22] MEDS: EMPAGLIFLOZIN 25 MG TABLET PO (09:53)
[2025-07-22] MEDS: FUROSEMIDE INJ 40 MG/4 ML VIAL IV PUSH (09:53)
[2025-07-22] MEDS: METOPROLOL SUCCINATE EXT REL 100 MG TABCR PO (09:53)
[2025-07-22] MEDS: guaiFENesin 12 HR 600 MG TABCR 1200 MG PO ×2 (09:53→20:14)
--- NOTE | 2025-07-22 09:58 | P.PNCA_ITS ---
Progress Note: A&P Assessment and Plan (1) A-fib: Qualifiers: Atrial fibrillation type: paroxysmal Qualified Code(s): I48.0 - Paroxysmal atrial fibrillation Code(s): I48.91 - Unspecified atrial fibrillation Status: Acute Plan 80-year-old lady with mitral valve disease, mechanical mitral replacement and chronic atrial fibrillation. Hospitalized with right lung pneumonia as well as a supratherapeutic INR. I would resume warfarin at this time at 4 mg per day, previous dosage was 4 mg with 5 mg on Sunday. With mechanical mitral valve in place my principal concern is to avoid subtherapeutic INR. From the cardiovascular perspective she is stable enough to be discharged. When she does go home I would recommend keeping her on 4 mg daily of warfarin and recheck INR next Sunday Nathanael Hendrickson MD [facility] Subjective Date/time seen: Date of service: 07/22/25 09:58 Interval history: Cardiology follow-up Visit Date of service 07/21/2025: Feels better today. States she does not feel short of breath. No swelling. Abdomen is soft and no longer distended Date of service 07/22/2025: Patient is feeling better cough seems to be improving with treatment of pneumonia. Discussed INR management. She is also hospitalized with pneumonia but explained to the patient that her INR wall above target on Sunday was not high enough to warrant hospital admission by itself. Exam Const: General: comfortable and no acute distress Other: Able to lie flat HENMT: Face/Nose/Sinus: Normal nares present and no epistaxis Mouth: Yes moist mucous membranes Eyes: Sclera: sclerae normal Pupils: Equal, round and reactive pupils present Neck: Neck: supple, JVD and no JVD Carotids: no bruits Resp: Effort & Inspection: normal respiratory effort Auscultation: clear to auscultation bilaterally and lung sounds not diminished Other: No chest wall tenderness Cardio: Rate: regular rate Rhythm: abnormal rhythm irregularly irregular Heart sounds: Clicking heart sound present (Click mechanical mitral valve replacement), no gallops, no murmurs and no rubs GI: Auscultation: normal bowel sounds Skin: General skin exam: normal color, rashes and/or lesions noted and no erythema Other: Warm Neuro: Cranial nerves: Yes Equal, round and reactive pupils present Speech: normal speech Other: No obvious focal deficit or facial asymmetry Extrem: General: no edema Other: Normal capillary refills Intact distal pulses. Objective Data Vital Signs Vital Signs: Vital Signs - 24 hr 07/21/25 12:00 07/21/25 14:00 07/21/25 16:00 Temperature 36.4 C L Pulse Rate 68 76 87 Respiratory Rate 18 Blood Pressure 110/59 L Pulse Oximetry 95 07/21/25 20:00 07/21/25 20:49 07/22/25 00:00 Temperature 36.6 C Pulse Rate 79 75 77 Respiratory Rate 16 Blood Pressure 108/59 L Pulse Oximetry 95 07/22/25 04:00 07/22/25 05:09 07/22/25 09:53 Temperature 36.6 C Pulse Rate 73 66 73 Respiratory Rate 18 Blood Pressure 103/62 Pulse Oximetry 96 Intake/Output Intake/Output: Intake & Output 07/19/25 07/20/25 07/21/25 07/22/25 23:59 23:59 23:59 23:59 Intake Total 840 1660 1870 610 Output Total 700 2400 800 Balance 840 960 -530 -190 Meds/Results Medications: Active Medications Generic Name Dose Route Start Last Admin Trade Name Freq PRN Reason Stop Dose Admin Acetaminophen 650 mg 07/18/25 12:26 Acetaminophen 325 Mg Tablet PO Q4H PRN Mild Pain (1-3) or Fever Empagliflozin 25 mg 07/19/25 09:00 07/22/25 09:53 Empagliflozin 25 Mg Tablet PO 25 mg QAM DEUCE Administration Furosemide 40 mg 07/19/25 17:00 07/22/25 09:53 Furosemide Inj 40 Mg/4 Ml Vial IV PUSH 40 mg BID DEUCE Administration Glucagon 1 mg 07/18/25 13:56 Glucagon For Inj 1 Mg Vial IM PRN PRN Hypoglycemia Protocol Glucose 15 gm 07/18/25 13:56 Glucose Oral Gel 15 Gm Of Glucse In 37.5 Gm Tube PO PRN PRN Hypoglycemia Protocol Guaifenesin 1,200 mg 07/18/25 23:05 07/22/25 09:53 Guaifenesin 12 Hr 600 Mg Tabcr PO 1,200 mg Q12HR DEUCE Administration Ceftriaxone Sodium 1 gm/ 50 mls @ 100 mls/hr 07/19/25 12:00 07/21/25 12:56 Sodium Chloride IVPB 100 mls/hr Q24H DEUCE Administration Azithromycin 500 mg/ Sodium 250 mls @ 250 mls/hr 07/19/25 14:00 07/21/25 15:53 Chloride IVPB 07/22/25 14:59 250 mls/hr Q24H DEUCE Administration Dextrose 1,000 mls @ 100 mls/hr 07/18/25 13:56 Dextrose 5% 1,000 Ml IVPB PRN PRN Hypoglycemia Protocol Insulin Aspart 2 - 5 units 07/18/25 17:00 07/22/25 09:53 Insulin Aspart (*Bkc) 100 Units/Ml SUB-Q Not Given TIDWM [facility] Protocol Insulin Glargine 12 units 07/18/25 21:00 07/21/25 21:29 Insulin Glargine (*Bkc) 100 Units/Ml 0.15 units/kg (12 units) 12 units SUB-Q Administration HS [facility] Latanoprost 1 drop 07/20/25 21:00 07/21/25 22:23 Latanoprost 0.005% Op Soln 2.5 Ml Btl RIGHT EYE 1 drop HS [facility] Administration Metoprolol Succinate 100 mg 07/18/25 23:07 07/22/25 09:53 Metoprolol Succinate Ext Rel 100 Mg Tabcr PO 100 mg QAM DEUCE Administration Pravastatin Sodium 20 mg 07/19/25 09:00 07/22/25 09:53 Pravastatin Sodium 20 Mg Tablet PO 20 mg DAILY DEUCE Administration Warfarin Sodium 4 mg 07/22/25 17:00 Warfarin (*Pbkc) 4 Mg Tablet PO DAILY@1700 [facility] Radiology Results: ITS Impressions Chest X-Ray 07/18/25 11:47 IMPRESSION: 1. Bibasilar airspace disease probably pneumonia. 2. Recommend x-ray surveillance until resolution to exclude underlying lesion. Labs Labs: Laboratory Results - last 24 hr 07/21/25 07/21/25 07/21/25 11:28 16:34 20:54 WBC RBC Hgb Hct MCV MCH MCHC RDW Plt Count MPV Immature Gran % (Auto) Neut % (Auto) Lymph % (Auto) [place] % (Auto) Eos % (Auto) Baso % (Auto) Lymph # (Auto) [place] # (Auto) Eos # (Auto) Baso # (Auto) Abs Immat Gran (auto) Absolute Neuts (auto) Absolute Nucleated RBC Nucleated RBC % PT INR Sodium Potassium Chloride Carbon Dioxide Anion Gap BUN Creatinine Estim Creat Clear Calc Estimated GFR Glucose POC Capillary Glucose 229 H 124 H 165 H Calcium Magnesium Total Bilirubin AST ALT Alkaline Phosphatase Total Protein Albumin 07/22/25 07/22/25 05:20 08:07 WBC 8.7 RBC 4.28 Hgb 11.3 L Hct 37.4 MCV 87.4 MCH 26.4 MCHC 30.2 L RDW 16.6 H Plt Count 240 MPV 9.1 Immature Gran % (Auto) 0.8 H Neut % (Auto) 76.4 H Lymph % (Auto) 9.1 L [place] % (Auto) 9.3 H Eos % (Auto) 3.7 Baso % (Auto) 0.7 Lymph # (Auto) 0.79 L [place] # (Auto) 0.8 H Eos # (Auto) 0.3 Baso # (Auto) 0.1 Abs Immat Gran (auto) 0.07 H Absolute Neuts (auto) 6.7 Absolute Nucleated RBC 0.000 Nucleated RBC % 0.0 PT 23.7 H INR 2.2 Sodium 133 L Potassium 3.6 Chloride 94 L Carbon Dioxide 37 H Anion Gap 2 L BUN 27 H Creatinine 1.18 H Estim Creat Clear Calc 37 Estimated GFR 44 L Glucose 116 H POC Capillary Glucose 108 H Calcium 9.1 Magnesium 2.2 Total Bilirubin 0.9 AST 31 ALT 16 Alkaline Phosphatase 170 H Total Protein 6.7 Albumin 3.8
[2025-07-22] MEDS: cefTRIAXone 1 GM in SODIUM CHLORIDE 0.9% IV 50 ML 100 ML IVPB (12:31)
--- NOTE | 2025-07-22 12:34 | P.PNIM_ITS ---
Progress Note: A&P Assessment and Plan (1) Supratherapeutic INR: Code(s): R79.1 - Abnormal coagulation profile Status: Acute Assessment and Plan: Patient reports no bleeding. No black or bloody stools. No recent changes in diuretics, Has had weight loss in the last year since covid. Reports her taste changed and appetite has decreased. Lost about 9 pounds in the last 6 months. INR 4.9 on admission INR 2.2, patient on mechanical aortic valve (2) Pneumonia: Code(s): J18.9 - Pneumonia, unspecified organism Status: Acute Assessment and Plan: Antibiotics: azithromycin/Rocephin 07/18 Blood cultures x2 pending Guaifenesin Wean oxygen as able Home o2 eval 07/18 Chest x-ray 1. Bibasilar airspace disease probably pneumonia. 2. Recommend x-ray surveillance until resolution to exclude underlying lesion. (3) CHF (congestive heart failure): Qualifiers: Heart failure type: other Qualified Code(s): I50.9 - Heart failure, unspecified Code(s): I50.9 - Heart failure, unspecified Status: Acute Assessment and Plan: Home lasix 20mg daily Echocardiogram pending Follow weight: 83.4kg on admission PO Lasix 40mg BID home oxygen eval (4) A-fib: Qualifiers: Atrial fibrillation type: paroxysmal Qualified Code(s): I48.0 - Paroxysmal atrial fibrillation Code(s): I48.91 - Unspecified atrial fibrillation Status: Acute Assessment and Plan: Telemetry Patient had her dose metoprolol increased to 100 restarted on Warfarin cardiology recommending keeping Warfarin at 4mg daily, her home dose (5) Anticoagulant long-term use: Code(s): Z79.01 - [facility] (current) use of anticoagulants Status: Acute Assessment and Plan: Due to mechanical valve, also has afib Patient takes 5 mg on Sunday and 4 mg the rest of the week Cardiology consulted for management Goal INR 2.5-3.5 INR 2.2 today (6) Type 2 diabetes mellitus: Qualifiers: 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 Diabetes mellitus complication status: with kidney complications Diabetes mellitus complication detail: with microalbuminuria Qualified Code(s): E11.29 - Type 2 diabetes mellitus with other diabetic kidney complication; R80.9 - Proteinuria, unspecified Code(s): E11.9 - Type 2 diabetes mellitus without complications Status: Acute Assessment and Plan: Bertram PARKER Hold home oral diabetic medications SSI (7) Hypertension: Qualifiers: Hypertension type: essential hypertension Qualified Code(s): I10 - Essential (primary) hypertension Code(s): I10 - Essential (primary) hypertension Status: Acute Assessment and Plan: Currently holding lisinopril due to low blood pressures (8) Chronic renal insufficiency, stage III (moderate): Code(s): N18.30 - Chronic kidney disease, stage 3 unspecified Status: Acute Assessment and Plan: Creatinine 1.20>1.16 aggressively diuresing due to hypotension and kidney protection. BP 104/67 BMP in the morning --Resume lisinopril soon Plan Acute hypoxemic respiratory failure on 2 liters oxygen home oxygen eval DVT prophylaxis on Warfarin awaiting home o2 eval prior to discharge Subjective Date/time seen: 07/22/25 12:34 Interval history: Comfortable at bedside INR 2.2 today Home oxygen eval ordered Review of Systems Review of Systems: 12 systems were reviewed and are negativ e except for as per HPI. Exam Narrative: APPEARANCE: No acute distress, nontoxic, resting in bed comfortably EYES: EOMI HEENT: Normocephalic, atraumatic, OMM RESPIRATORY: No respiratory distress Clear to auscultation bilaterally with no rhonchi wheezing or rales. CARDIOVASCULAR: RRR, S1 and S2 without murmurs rubs or gallops. ABDOMINAL: Soft, nontender, nondistended, no rebound or guarding MUSCULOSKELETAl: Moves her extremities spontaneously NEURO: Awake and alert. Following commands, speech normal, no focal deficits SKIN:: Warm, dry. No rashes lesions or abrasions PSYCHIATRIC: Normal affect/mood, Objective Data Vital Signs Vital Signs: Vital Signs - 24 hr 07/21/25 14:00 07/21/25 16:00 07/21/25 20:00 Temperature 97.5 F L Pulse Rate 76 87 79 Respiratory Rate 18 Blood Pressure 110/59 L Pulse Oximetry 95 Oxygen Delivery Oxygen Flow Rate 07/21/25 20:49 07/22/25 00:00 07/22/25 04:00 Temperature 98 F Pulse Rate 75 77 73 Respiratory Rate 16 Blood Pressure 108/59 L Pulse Oximetry 95 Oxygen Delivery Oxygen Flow Rate 07/22/25 05:09 07/22/25 08:00 07/22/25 09:53 Temperature 97.8 F Pulse Rate 66 73 73 Respiratory Rate 18 18 Blood Pressure 103/62 Pulse Oximetry 96 96 Oxygen Delivery Nasal Cannula Oxygen Flow Rate 2 Intake/Output Intake/Output: Intake & Output 07/19/25 07/20/25 07/21/25 07/22/25 23:59 23:59 23:59 23:59 Intake Total 840 1660 1920 610 Output Total 700 2400 800 Balance 840 979 -421 -190 Meds/Results Medications: Active Medications Generic Name Dose Route Start Last Admin Trade Name Freq PRN Reason Stop Dose Admin Acetaminophen 650 mg 07/18/25 12:26 Acetaminophen 325 Mg Tablet PO Q4H PRN Mild Pain (1-3) or Fever Empagliflozin 25 mg 07/19/25 09:00 07/22/25 09:53 Empagliflozin 25 Mg Tablet PO 25 mg QAM DEUCE Administration Furosemide 40 mg 07/19/25 17:00 07/22/25 09:53 Furosemide Inj 40 Mg/4 Ml Vial IV PUSH 40 mg BID DEUCE Administration Glucagon 1 mg 07/18/25 13:56 Glucagon For Inj 1 Mg Vial IM PRN PRN Hypoglycemia Protocol Glucose 15 gm 07/18/25 13:56 Glucose Oral Gel 15 Gm Of Glucse In 37.5 Gm Tube PO PRN PRN Hypoglycemia Protocol Guaifenesin 1,200 mg 07/18/25 23:05 07/22/25 09:53 Guaifenesin 12 Hr 600 Mg Tabcr PO 1,200 mg Q12HR DEUCE Administration Ceftriaxone Sodium 1 gm/ 50 mls @ 100 mls/hr 07/19/25 12:00 07/22/25 12:31 Sodium Chloride IVPB 100 mls/hr Q24H DEUCE Administration Azithromycin 500 mg/ Sodium 250 mls @ 250 mls/hr 07/19/25 14:00 07/21/25 15:53 Chloride IVPB 07/22/25 14:59 250 mls/hr Q24H DEUCE Administration Dextrose 1,000 mls @ 100 mls/hr 07/18/25 13:56 Dextrose 5% 1,000 Ml IVPB PRN PRN Hypoglycemia Protocol Insulin Aspart 2 - 5 units 07/18/25 17:00 07/22/25 12:32 Insulin Aspart (*Bkc) 100 Units/Ml SUB-Q Not Given TIDWM DEUCE Protocol Insulin Glargine 12 units 07/18/25 21:00 07/21/25 21:29 Insulin Glargine (*Bkc) 100 Units/Ml 0.15 units/kg (12 units) 12 units SUB-Q Administration HS [facility] Latanoprost 1 drop 07/20/25 21:00 07/21/25 22:23 Latanoprost 0.005% Op Soln 2.5 Ml Btl RIGHT EYE 1 drop HS [facility] Administration Metoprolol Succinate 100 mg 07/18/25 23:07 07/22/25 09:53 Metoprolol Succinate Ext Rel 100 Mg Tabcr PO 100 mg QAM DEUCE Administration Pravastatin Sodium 20 mg 07/19/25 09:00 07/22/25 09:53 Pravastatin Sodium 20 Mg Tablet PO 20 mg DAILY DEUCE Administration Warfarin Sodium 4 mg 07/22/25 17:00 Warfarin (*Pbkc) 4 Mg Tablet PO DAILY@1700 [facility] Radiology Results: ITS Impressions Chest X-Ray 07/18/25 11:47 IMPRESSION: 1. Bibasilar airspace disease probably pneumonia. 2. Recommend x-ray surveillance until resolution to exclude underlying lesion. Labs Labs: Laboratory Results - last 24 hr 07/21/25 07/21/25 07/22/25 16:34 20:54 05:20 WBC 8.7 RBC 4.28 Hgb 11.3 L Hct 37.4 MCV 87.4 MCH 26.4 MCHC 30.2 L RDW 16.6 H Plt Count 240 MPV 9.1 Immature Gran % (Auto) 0.8 H Neut % (Auto) 76.4 H Lymph % (Auto) 9.1 L [place] % (Auto) 9.3 H Eos % (Auto) 3.7 Baso % (Auto) 0.7 Lymph # (Auto) 0.79 L [place] # (Auto) 0.8 H Eos # (Auto) 0.3 Baso # (Auto) 0.1 Abs Immat Gran (auto) 0.07 H Absolute Neuts (auto) 6.7 Absolute Nucleated RBC 0.000 Nucleated RBC % 0.0 PT 23.7 H INR 2.2 Sodium 133 L Potassium 3.6 Chloride 94 L Carbon Dioxide 37 H Anion Gap 2 L BUN 27 H Creatinine 1.18 H Estim Creat Clear Calc 37 Estimated GFR 44 L Glucose 116 H POC Capillary Glucose 124 H 165 H Calcium 9.1 Magnesium 2.2 Total Bilirubin 0.9 AST 31 ALT 16 Alkaline Phosphatase 170 H Total Protein 6.7 Albumin 3.8 07/22/25 07/22/25 08:07 11:17 WBC RBC Hgb Hct MCV MCH MCHC RDW Plt Count MPV Immature Gran % (Auto) Neut % (Auto) Lymph % (Auto) [place] % (Auto) Eos % (Auto) Baso % (Auto) Lymph # (Auto) [place] # (Auto) Eos # (Auto) Baso # (Auto) Abs Immat Gran (auto) Absolute Neuts (auto) Absolute Nucleated RBC Nucleated RBC % PT INR Sodium Potassium Chloride Carbon Dioxide Anion Gap BUN Creatinine Estim Creat Clear Calc Estimated GFR Glucose POC Capillary Glucose 108 H 185 H Calcium Magnesium Total Bilirubin AST ALT Alkaline Phosphatase Total Protein Albumin Quality VTE Prophylaxis VTE prophylaxis: mechanical ordered and pharmacologic ordered
[2025-07-22] MEDS: AZITHROMYCIN 500 MG TABLET PO (13:48)
--- NOTE | 2025-07-22 14:15 | HOMEO2EVAL ---
Evaluation was performed at [facility] Home Oxygen Evaluation RC: Home Oxygen (O2) Evaluation Start: 07/22/25 12:34 Freq: ONCE Status: Active Protocol: RPE Activity Type Activity Date Activity User E-sign Co-sign Detail Recorded Client Recorded Date Recorded By Document 07/22/25 13:15 [email or web address] [email or web address] 07/22/25 14:14 DJO Document 07/22/25 13:20 [email or web address] 07/22/25 14:14 DJO Document 07/22/25 13:25 [email or web address] 07/22/25 14:14 DJO Document 07/22/25 13:30 [email or web address] 07/22/25 14:14 DJO Document 07/22/25 13:45 [email or web address] 07/22/25 14:14 DJO 07/22/25 07/22/25 07/22/25 13:15 13:20 13:25 Home O2 Evaluation [Oxygen] -Test Phase Resting Resting Resting -Oxygen Delivery Room Air Nasal Cannula Nasal Cannula -Oxygen Flow Rate (L/min) 1 2 [Pulse Oximetry] -Pulse Oximetry (90-100 %) 86 L 88 L 91 [Pulse Rate] -Pulse Rate (60-100 beats/min) 83 80 81 [Evaluation] -Activity Tolerance [Exercise] -Ambulation Distance (feet) -Ambulation Distance (meters) [Charges] -Evaluation Charges O2 Evaluation by Pulmonary 07/22/25 07/22/25 13:30 13:45 Home O2 Evaluation [Oxygen] -Test Phase Exercise Resting -Oxygen Delivery Nasal Cannula Nasal Cannula -Oxygen Flow Rate (L/min) 2 2 [Pulse Oximetry] -Pulse Oximetry (90-100 %) 91 91 [Pulse Rate] -Pulse Rate (60-100 beats/min) 112 H 85 [Evaluation] -Activity Tolerance Good [Exercise] -Ambulation Distance (feet) 500 -Ambulation Distance (meters) 152.39 [Charges] -Evaluation Charges
[2025-07-22] MEDS: WARFARIN (*PBKC) 4 MG TABLET PO (17:27)
[2025-07-22] MEDS: FUROSEMIDE 40 MG TABLET PO (17:27)
[2025-07-22] MEDS: LATANOPROST 0.005% OP SOLN 2.5 ML BTL 1 DROP RIGHT EYE (20:14)
[2025-07-22] MEDS: INSULIN GLARGINE (*BKC) 100 UNITS/ML 12 UNITS SUB-Q (20:14)
[2025-07-23] VITALS: PULSE 79
[2025-07-23 04:00] VITALS: PULSE 75
[2025-07-23 05:41] VITALS: BP 113/77; PULSE 74; RESP 16; TEMP 36.3; O2SAT 94
[2025-07-23 05:45] LABS: Hematocrit 37.3 % (37.0-47.0); Hemoglobin 11.4 g/dL (12.0-15.0); Immature Granulocyte Percent A 0.6 % (0-0.5); Lymphocytes Absolute Auto 0.89 K/mm3 (0.9-3.2); Mean Corpuscular HGB Conc 30.6 g/dl (32-36); Mean Corpuscular Hemoglobin 26.5 pg (26-34); Mean Corpuscular Volume 86.7 fl (80-100); Nucleated Red Blood Cells Absolute Auto 0.000 K/mm3 (0.0-0.012); Nucleated Red Blood Cells Perc 0.0 % (0.0-0.2); Platelet Count Result 231 k/mm3 (150-375); Red Blood Count 4.30 M/mm3 (4.2-5.4); White Blood Count 8.6 K/mm3 (4.5-10.0)
[2025-07-23 06:06] LABS: INR 2.7; Prothrombin Time 27.8 Seconds (11.1-14.7)
[2025-07-23 06:14] LABS: Alanine Aminotransferase 16 U/L (6-35); Albumin Level 3.9 g/dL (3.5-5.1); Alkaline Phosphatase 168 U/L (38-126); Anion Gap 6 mmol/L (4-12); Aspartate Amino Transferase 34 U/L (14-36); Bilirubin,Total 0.7 mg/dL (0.2-1.3); Blood Urea Nitrogen 27 mg/dL (7-17); Calcium 9.2 mg/dL (8.4-10.2); Carbon Dioxide 37 mmol/L (22-30); Chloride 92 mmol/L (98-107); Estimated CRCL calculation 39 ml/min; Estimated Glomerular Filt Rate 46; Glucose 94 mg/dL (65-110); Magnesium 2.2 mg/dL (1.6-2.3); Potassium 3.5 mmol/L (3.4-5.0); Sodium 135 mmol/L (137-145); Total Protein 6.7 g/dL (6.3-8.2)
[2025-07-23 08:00] VITALS: PULSE 77; PULSE 89; RESP 16; O2SAT 94
[2025-07-23 08:29] VITALS: PULSE 89
[2025-07-23] MEDS: guaiFENesin 12 HR 600 MG TABCR 1200 MG PO (08:29)
[2025-07-23] MEDS: FUROSEMIDE 40 MG TABLET PO (08:29)
[2025-07-23] MEDS: PRAVASTATIN SODIUM 20 MG TABLET PO (08:29)
[2025-07-23] MEDS: METOPROLOL SUCCINATE EXT REL 100 MG TABCR PO (08:29)
[2025-07-23] MEDS: EMPAGLIFLOZIN 25 MG TABLET PO (08:29)
[2025-07-23 12:00] VITALS: PULSE 92
--- NOTE | 2025-07-23 13:00 | P.DS_ITS ---
DS: Admitting Diagnosis Discharge Date 07/23/25 Admitting Diagnosis INR of 4.9 DS: Discharge Diagnosis Discharge Diagnosis (1) Supratherapeutic INR: Code(s): R79.1 - Abnormal coagulation profile Status: Acute (2) Acute hypoxemic respiratory failure: Code(s): J96.01 - Acute respiratory failure with hypoxia Status: Acute (3) Pneumonia: Code(s): J18.9 - Pneumonia, unspecified organism Status: Acute DS: Summary Hospital Course Hospital Course: HPI per admitting provider: 80-year-old female with past medical history of atrial fibrillation, hypertension, CHF, CKD stage 3, iron deficiency and history of mitral valve replacement with mechanical valve on Coumadin presents the hospital with an INR 4.9. 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 She states that yesterday she took 5 mg of Coumadin last night she did not take a dose today. Patient also complains of a cough and shortness of breath. Patient states that her Cardiology had scheduled a outpatient echocardiogram which she has not done yet. Patient denies nausea or vomiting. Lab work here in the emergency room shows INR 4.9, sodium of 134, BUN of 21, creatinine of 1.2, glucose of 228, alkaline phos of 182, BNP 7210. Chest x-ray shows right lower lobe pneumonia Warfarin was held and INR returned gradually to therapeutic range. Cardiology was consulted and after discussing with him he recommended returning patinet to her baseline Warfarin, noted that given mecahnical aortic valve he does not want to risk subtherapeutic INR. Patient was also managed for Pneumonia and acute hypoxemic respiratory failure. Discharge on 3 more days of Augmentin and home oxygen. F/u with PCP in 3-5 days F/u with cardiology as instructed Time Spent with Patient Time attestation: Total time spent providing and/or coordinating discharge services: DS: Data Data Completed and Pending Labs on day of discharge: Labs from last 24 hours 07/23/25 07/23/25 07/23/25 11:33 07:42 05:39 WBC 8.6 RBC 4.30 Hgb 11.4 L Hct 37.3 MCV 86.7 MCH 26.5 MCHC 30.6 L RDW 16.6 H Plt Count 231 MPV 8.6 Immature Gran % (Auto) 0.6 H Neut % (Auto) 75.7 H Lymph % (Auto) 10.3 L [place] % (Auto) 9.5 H Eos % (Auto) 3.2 Baso % (Auto) 0.7 Lymph # (Auto) 0.89 L [place] # (Auto) 0.8 H Eos # (Auto) 0.3 Baso # (Auto) 0.1 Abs Immat Gran (auto) 0.05 H Absolute Neuts (auto) 6.5 Absolute Nucleated RBC 0.000 Nucleated RBC % 0.0 PT 27.8 H INR 2.7 Sodium 135 L Potassium 3.5 Chloride 92 L Carbon Dioxide 37 H Anion Gap 6 BUN 27 H Creatinine 1.13 H Estim Creat Clear Calc 39 Estimated GFR 46 L Glucose 94 POC Capillary Glucose 239 H 96 Calcium 9.2 Magnesium 2.2 Total Bilirubin 0.7 AST 34 ALT 16 Alkaline Phosphatase 168 H Total Protein 6.7 Albumin 3.9 07/22/25 07/22/25 20:13 16:14 WBC RBC Hgb Hct MCV MCH MCHC RDW Plt Count MPV Immature Gran % (Auto) Neut % (Auto) Lymph % (Auto) [place] % (Auto) Eos % (Auto) Baso % (Auto) Lymph # (Auto) [place] # (Auto) Eos # (Auto) Baso # (Auto) Abs Immat Gran (auto) Absolute Neuts (auto) Absolute Nucleated RBC Nucleated RBC % PT INR Sodium Potassium Chloride Carbon Dioxide Anion Gap BUN Creatinine Estim Creat Clear Calc Estimated GFR Glucose POC Capillary Glucose 217 H 124 H Calcium Magnesium Total Bilirubin AST ALT Alkaline Phosphatase Total Protein Albumin Preliminary micro results at discharge 07/18/25 12:26 Blood Culture - Preliminary Blood 07/18/25 12:26 Blood Culture - Preliminary Blood Discharge Plan Discharge Attending physician on discharge: Yamilet Damon Consulting providers: Nathen Hernandez; Priya Mar; Yamilet Damon Discharging Clinician: Yamilet Damon Anticipated Discharge Date/Time: 07/23/25 12:56 Patient Disposition: Home Activity: as tolerated Diet: as tolerated and heart healthy Patient Instructions: Antibiotic Form, Warfarin (By mouth) Patient Language: Pakistani Stand Alone Forms: General Discharge Information Follow-up/Referrals: Nathen Hernandez MD [Physician, Cardiology] Referral Note: F/u with cardiology as instructed Irina Browning MD [Primary Care Provider, Family Practice] Referral Note: F/u with PCP in 3-5 days Discharge Medications: New amoxicillin-pot clavulanate 875-125 mg tablet 1 tablet PO Q12H 3 Days Qty: 6 0RF Continued metoprolol succinate [Toprol XL] 50 mg tablet extended release 24 hr 50 mg PO DAILY warfarin 4 mg tablet 4 mg PO DAILY latanoprost 0.005 % drops 1 drp RIGHT EYE DAILY cholecalciferol (vitamin D3) 50 mcg (2,000 unit) capsule 100 mcg PO DAILY PreserVision AREDS 4,296 mcg-226 mg-90 mg capsule 1 cap PO BID lisinopril 2.5 mg tablet 2.5 mg PO DAILY Qty: 90 3RF pravastatin 20 mg tablet 20 mg PO DAILY Qty: 90 3RF furosemide 20 mg tablet 20 mg PO DAILY Qty: 90 3RF potassium chloride 10 mEq capsule, extended release 10 meq PO DAILY Qty: 90 3RF glipizide 5 mg tablet See Rx Instructions .ROUTE .COMPLEX Qty: 360 3RF Dose Instruction: TAKE 2 TABLETS TWICE DAILY Rx Instructions: TAKE 2 TABLETS TWICE DAILY metformin 500 mg tablet 500 mg PO BID Qty: 180 3RF dapagliflozin propanediol [Farxiga] 10 mg tablet 10 mg PO QAM Qty: 90 3RF (DME) blood sugar diagnostic Strip See Rx Instructions .Route Qty: 100 0RF Rx Instructions: Monitor blood sugar once per day in the morning before food. (DME) lancets Misc See Rx Instructions .Route Qty: 100 0RF Rx Instructions: Monitor blood sugar once per day in the morning before food. (DME) blood-glucose meter Kit See Rx Instructions .Route Qty: 1 0RF Rx Instructions: Monitor blood sugar once per day in the morning before food. Date of admission: 07/18/25 12:26 Primary Care Provider: Irina Browning Admitting Provider: Barbara Fisher Attending physician on admission: Barbara Fisher Condition: Stable
[2025-07-23] MEDS: INSULIN ASPART (*BKC) 100 UNITS/ML SUB-Q (13:27)
--- NOTE | 2025-07-23 14:17 | PCRTNOTE ---
HOME O2 EVAL COMPLETE, PT REQUIRES 2L AT REST AND WITH ACTIVITY. SET UP WITH IV & RESP CARE, PHONE NUMBER [phone]. TANK IN ROOM FOR DISCHARGE
== END 2025-07-23 14:30 | disposition home or self-care (01) | DRG 193 ==
LOC: ANHED 11:01 → ANH3MED 12:57
PROVIDERS: Nurse Practitioner Acute Care; Nurse Practitioner Gerontology; Admitting Provider General Practice; Emergency Provider General Practice; PCP Family Medicine; Visit Provider Internal Medicine
DX: J18.9 Pneumonia, unspecified organism (principal); I50.43 Acute on chronic combined systolic (congestive) and diastolic (congestive) heart failure; J96.01 Acute respiratory failure with hypoxia; I13.0 Hypertensive heart and chronic kidney disease with heart failure and stage 1 through stage 4 chronic kidney disease, or unspecified chronic kidney disease; I42.9 Cardiomyopathy, unspecified; I48.20 Chronic atrial fibrillation, unspecified; E78.5 Hyperlipidemia, unspecified; E11.51 Type 2 diabetes mellitus with diabetic peripheral angiopathy without gangrene; E11.22 Type 2 diabetes mellitus with diabetic chronic kidney disease; N18.30 Chronic kidney disease, stage 3 unspecified; E11.69 Type 2 diabetes mellitus with other specified complication; R79.1 Abnormal coagulation profile; J32.9 Chronic sinusitis, unspecified; I36.1 Nonrheumatic tricuspid (valve) insufficiency; I95.9 Hypotension, unspecified; R63.4 Abnormal weight loss; U09.9 Post COVID-19 condition, unspecified; Z87.891 Personal history of nicotine dependence; Z79.01 Long term (current) use of anticoagulants; Z79.84 Long term (current) use of oral hypoglycemic drugs; Z95.3 Presence of xenogenic heart valve
CPT/HCPCS: 36415; 71046; 80053; 82948; 83735; 83880; 84484; 85025; 85610; 85730; 87040; 93005; 93306; 94618; 99285; A9270; J0456; J0696; J1644; J1815; J1938; J7050; P9047

== ENCOUNTER 2025-08-18 12:45 | Outpatient (RCR) | payer MEDICARE, SELFPAY ==
[2025-07-17 11:26] LABS: INR 4.9; Prothrombin Time 43.6 Seconds (11.1-14.7)
[2025-07-27 14:04] LABS: INR 3.9; Prothrombin Time 36.9 Seconds (11.1-14.7)
[2025-08-05 12:43] LABS: INR 3.6; Prothrombin Time 34.1 Seconds (11.1-14.7)
[2025-08-18 13:41] LABS: Prothrombin Time 79.9 Seconds (11.1-14.7)
[2025-08-18 14:07] LABS: INR 11.2
== END 2025-10-15 23:59 | disposition home or self-care (01) ==
LOC: ANHLAB 12:45
PROVIDERS: PCP Family Medicine; Visit Provider Specialist
DX: Z95.2 Presence of prosthetic heart valve (principal)
CPT/HCPCS: 36415; 85610